=== PATIENT | female | born 1980 | race Caucasian/White ===

== ENCOUNTER 2022-03-04 17:42 | Emergency (ER) | payer OTHER, SELFPAY ==
[2022-03-04 17:49] VITALS: BP 144/94; PULSE 104; RESP 20; TEMP 36.1; O2SAT 98
--- NOTE | 2022-03-04 18:10 | ED.URI ---
HPI - URI/Sore Throat General Chief Complaint: Upper Respiratory Infection Stated Complaint: sore throat chills headache throat ears Time Seen by Provider: 03/04/22 18:10 Source: patient, RN notes reviewed and old records reviewed Mode of arrival: ambulatory Limitations: no limitations History of Present Illness HPI Narrative: 41-year-old female presents to the [facility] of sore throat, chills, headache x 3 days reports that her kids were sick with similar symptoms but got over it pretty quickly. Reports 1 child was given Flonase MD elicited complaint: fever, cough, sore throat and rhinorrhea Related Data Home Medications Medication Instructions Recorded Confirmed No Home Medications 03/04/22 03/04/22 Allergies Allergy/AdvReac Type Severity Reaction Status Date / Time No Known Drug Allergies Allergy Verified 02/08/13 14:39 Review of Systems Review of Systems: All systems reviewed & are unremarkable except as noted in HPI and below Constitutional: Constitutional: Reports as per HPI, Reports chills, Reports fatigue and Denies fever(s) Eyes: Eyes: Reports no additional eye complaints ENT: Reports as per HPI and Reports nasal congestion Cardiovascular: Cardiovascular: Reports no additional cardiovascular complaints Respiratory: Respiratory: Reports no additional respiratory complaints Gastrointestinal: Gastrointestinal: Reports no additional gastrointestinal complaints Musculoskeletal: Musculoskeletal: Reports no additional musculoskeletal complaints Integumentary/Breasts: Skin/Breast: Reports system reviewed and no additional complaints, except as docu Neurologic: Reports system reviewed and no additional complaints, except as documented Psychiatric: Psychiatric: Reports no additional psychiatric complaints Allergic/Immunologic: Allergic/Immunologic: Reports no additional allergic/immunologic complaints [facility] Past Medical History Medical History (Updated 03/04/22 @ 19:51 by Nanette Cristina APRN) Kidney disease Comments At the time of my signature, I reviewed and agree with the nursing past medical, surgical, social, and family history. There is no relevant family history pertinent to the patient complaint. Exam Const: General: healthy appearing, comfortable, no acute distress, well developed, alert and well nourished Nutritional Appearance: well nourished and obese Orientation/consciousness: patient oriented x3 Limitations: no limitations HENMT: Head: normal to inspection Ears: external ears normal, TM's normal bilaterally and EAC's normal Face/Nose/Sinus: Normal external nose present and Normal nares present Face and sinus: normal facial exam Mouth: Yes Normal oral and palatal mucosa present, Yes lip normal and Yes moist mucous membranes Throat: posterior oropharynx normal and uvula midline Eyes: General: appearance normal, both eyes and all related structures Pupils: Equal, round and reactive pupils present Neck: Neck: normal visual inspection, full ROM, no lymphadenopathy and no meningeal signs Chest: Chest palpation & inspection: normal inspection of the chest Resp: Effort & Inspection: normal respiratory effort and no use of accessory muscles Auscultation: clear to auscultation bilaterally, no crackles, no rales, no rhonchi and no wheezes Cardio: Rate: regular rate Rhythm: regular rhythm Back/Spine/Pelvis: Cervical Spine: cervical ROM normal and No Cervical spine tenderness Thoracic/Lumbar Spine: thoracic and lumbar spine normal to inspection and thoraco-lumbar ROM normal Skin: General skin exam: normal color Rashes: no rashes Wounds: no wounds Neuro: General: patient oriented x3, moves all extremities, no meningeal signs and no focal motor deficits Cranial nerves: Yes Equal, round and reactive pupils present Speech: normal speech Gait exam (Neuro): Normal gait present Extrem: General: normal to inspection, full ROM and capillary refill normal Psych: Appearance: grossly
== END 2022-03-04 18:25 | disposition home or self-care (01) ==
PROVIDERS: Emergency Provider Nurse Practitioner; PCP Internal Medicine
DX: J06.9 Acute upper respiratory infection, unspecified (principal); Q61.3 Polycystic kidney, unspecified; E03.9 Hypothyroidism, unspecified
CPT/HCPCS: 87081; 87804; 87880; 99203; G0463

== ENCOUNTER 2022-06-07 17:12 | Emergency (ER) | payer OTHER, SELFPAY ==
[2022-06-07 17:18] VITALS: BP 159/100; PULSE 102; RESP 14; TEMP 36.9; O2SAT 100
--- NOTE | 2022-06-07 17:49 | ED.URI ---
HPI - URI/Sore Throat General Chief Complaint: Upper Respiratory Infection Stated Complaint: throat ears and head Source: patient and RN notes reviewed History of Present Illness HPI Narrative: 42-year-old female with history of hypertension, presents to urgent care with complaints of sore throat x2 days. Patient presents with her daughter who was seen here and diagnosed with strep throat 2 days ago. Patient denies any fevers, chills, or vomiting. Patient reports chest pain with coughing. Patient is also reporting body aches. Patient also noted to have hypertension and states she has not been taking medicine for very long time. Patient admits to being diagnosed with unknown stage of kidney failure and states she has not seen a primary care physician in over a year. Some parts of this dictation were generated by voice recognition software and may contain typographical and/or grammatical inaccuracies. Related Data Allergies Allergy/AdvReac Type Severity Reaction Status Date / Time No Known Drug Allergies Allergy Verified 02/08/13 14:39 Review of Systems Review of Systems: CONSTITUTIONAL: Denies fever, chills, or sweats. EYES: Denies visual changes, redness, or discharge. ENT: Reports ear pain and sore throat CARDIOVASCULAR: Denies chest pain, palpitations, or edema. RESPIRATORY: Denies cough or dyspnea. GASTROINTESTINAL: Denies abdominal pain, nausea, vomiting, or diarrhea. GENITOURINARY: Denies dysuria or hematuria. SKIN: Denies rash or itching. MUSCULOSKELETAL: Denies back pain, joint pain, or myalgia. NEUROLOGIC: Denies headache, numbness, or weakness. [facility] Past Medical History Medical History (Updated 06/07/22 @ 18:00 by Kelli Walsh APRN) Kidney disease Comments At the time of my signature, I reviewed and agree with the nursing past medical, surgical, social, and family history. There is no relevant family history pertinent to the patient complaint. Exam Narrative: GENERAL: This is a well-nourished, well-developed patient, in no apparent distress. HEAD: normocephalic, atraumatic. EYES: PERRL. Sclera clear/white. Vision is grossly intact. EARS: External ears normal, auditory canals clear and without drainage, TMs normal without perforation. Hearing grossly intact. NOSE: External nose normal with no obvious nasal discharge, nares without redness, no rhinorrhea. THROAT: Mucous membranes moist, posterior pharynx erythemic. No tonsils. No exudate. NECK: Neck supple, non-tender without lymphadenopathy, masses or thyromegaly. CARDIOVASCULAR: Regular rate and rhythm without murmurs, gallops, or rubs. RESPIRATORY: Clear to auscultation. Breath sounds equal bilaterally. No wheezes, rales, or rhonchi. GASTROINTESTINAL: Abdomen soft, non-tender, nondistended. Bowel sounds are active. No hepato-splenomegaly, or palpable masses. No guarding. SKIN: warm, intact with no suspicious lesions or rash, good texture and turgor. NEURO: awake, alert, and oriented to person, place and time. There were no obvious focal neurologic abnormalities. Course Course Level of Care: Express Care Visit Vital Signs Vital signs: Vital Signs Temperature 98.5 F 06/07/22 17:18 Pulse Rate 102 H 06/07/22 17:18 Respiratory Rate 14 06/07/22 17:18 Blood Pressure 159/100 H 06/07/22 17:18 Pulse Oximetry 100 06/07/22 17:18 Oxygen Delivery Room Air 06/07/22 17:18 Temperature 98.5 F 06/07/22 17:18 Pulse Rate 102 H 06/07/22 17:18 Respiratory Rate 14 06/07/22 17:18 Blood Pressure 159/100 H 06/07/22 17:18 Pulse Oximetry 100 06/07/22 17:18 Oxygen Delivery Room Air 06/07/22 17:18 Reviewed. Patient is informed that they may have pre-hypertension or hypertension based on a blood pressure reading in the department. I recommend the patient call the primary care provider listed on their discharge instructions or a physician of their choice this week to arrange follow-up for further evaluation of possible pre-hypert
== END 2022-06-07 18:08 | disposition home or self-care (01) ==
PROVIDERS: Emergency Provider Nurse Practitioner Family; PCP Internal Medicine
DX: J02.0 Streptococcal pharyngitis (principal); I12.9 Hypertensive chronic kidney disease with stage 1 through stage 4 chronic kidney disease, or unspecified chronic kidney disease; N18.9 Chronic kidney disease, unspecified; Z91.14 Patient's other noncompliance with medication regimen
CPT/HCPCS: 87880; 99213; G0463

== ENCOUNTER 2022-06-20 17:40 | Emergency (ER) | payer OTHER, SELFPAY ==
[2022-06-20 17:45] VITALS: BP 138/100; PULSE 88; RESP 20; TEMP 37.1; O2SAT 98
--- NOTE | 2022-06-20 18:04 | ED.URI ---
HPI - URI/Sore Throat General Chief Complaint: Upper Respiratory Infection Stated Complaint: Sinus Congestion/Diarrhea Time Seen by Provider: 06/20/22 18:00 Source: patient and RN notes reviewed History of Present Illness HPI Narrative: Patient is a 42-year-old female who presents to urgent care with complaints of recurrent sore throat, cough, hoarseness and bilateral ear pain. Patient was treated for positive strep on June 07 with amoxicillin and states that her symptoms started to get worse again on Saturday. Patient states she has had fatigue and some chills. Patient has been taking Tylenol, vitamin-C and using cough drops peer no other acute complaints. No acute distress noted. Patient aware of the plan of care. Some parts of this dictation were generated by voice recognition software and may contain typographical and/or grammatical inaccuracies. Related Data Home Medications Medication Instructions Recorded Confirmed levonorgestrel 21 mcg/24 hours (8 1 device intrauterine ONCE 06/20/22 06/20/22 yrs) 52 mg intrauterine device (Mirena) Allergies Allergy/AdvReac Type Severity Reaction Status Date / Time No Known Drug Allergies Allergy Unknown Verified 06/20/22 18:06 Review of Systems Review of Systems: CONSTITUTIONAL: Denies fever, chills, or sweats. EYES: Denies visual changes, redness, or discharge. ENT: Reports bilateral otalgia, hoarseness and sore throat CARDIOVASCULAR: Denies chest pain, palpitations, or edema. RESPIRATORY: Reports cough without dyspnea GASTROINTESTINAL: Denies abdominal pain, nausea, vomiting, or diarrhea. GENITOURINARY: Denies dysuria or hematuria. SKIN: Denies rash or itching. MUSCULOSKELETAL: Denies back pain, joint pain, or myalgia. NEUROLOGIC: Denies headache, numbness, or weakness. All other systems reviewed are negative, except as documented in HPI. [facility] Past Medical History Medical History (Updated 06/20/22 @ 18:18 by ANDRE Sharp) Kidney disease Comments At the time of my signature, I reviewed and agree with the nursing past medical, surgical, social, and family history. There is no relevant family history pertinent to the patient complaint. Exam Narrative: GENERAL: This is a well-nourished, well-developed patient, in no apparent distress. HEAD: normocephalic, atraumatic. EYES: PERRL. Sclera clear/white. Vision is grossly intact. EARS: External ears normal, auditory canals clear and without drainage, TMs normal without perforation. Hearing grossly intact. NOSE: External nose normal with no obvious nasal discharge, nares without redness, no rhinorrhea. THROAT: Mucous membranes moist, posterior pharynx clear. Moderate postnasal drainage. NECK: Neck supple, non-tender without lymphadenopathy CARDIOVASCULAR: Regular rate and rhythm RESPIRATORY: Clear to auscultation. Breath sounds equal bilaterally. No wheezes, rales, or rhonchi. SKIN: warm, intact with no suspicious lesions or rash, good texture and turgor. NEURO: awake, alert, and oriented to person, place and time. There were no obvious focal neurologic abnormalities. EXTREMITIES: No clubbing, cyanosis, or edema. Course Course Level of Care: Express Care Visit Vital Signs Vital signs: Vital Signs Temperature 98.7 F 06/20/22 17:45 Pulse Rate 88 06/20/22 17:45 Respiratory Rate 20 06/20/22 17:45 Blood Pressure 138/100 H 06/20/22 17:45 Pulse Oximetry 98 06/20/22 17:45 Oxygen Delivery Room Air 06/20/22 17:45 Temperature 98.7 F 06/20/22 17:45 Pulse Rate 88 06/20/22 17:45 Respiratory Rate 20 06/20/22 17:45 Blood Pressure 138/100 H 06/20/22 17:45 Pulse Oximetry 98 06/20/22 17:45 Oxygen Delivery Room Air 06/20/22 17:45 Reviewed- Patient is informed that they may have pre-hypertension or hypertension based on a blood pressure reading in the department. I recommend the patient call the primary care provider listed on their discharge instructions or a physi
[2022-06-20 18:23] VITALS: BP 141/111
== END 2022-06-20 18:23 | disposition home or self-care (01) ==
PROVIDERS: Emergency Provider Nurse Practitioner Family; PCP Internal Medicine
DX: J02.0 Streptococcal pharyngitis (principal); N28.9 Disorder of kidney and ureter, unspecified
CPT/HCPCS: 87880; 99213; G0463

== ENCOUNTER 2023-06-28 17:31 | Emergency (ER) | payer OTHER, SELFPAY ==
[2023-06-28 17:36] VITALS: BP 167/113; PULSE 123; RESP 18; TEMP 37.1; O2SAT 99
--- NOTE | 2023-06-28 18:20 | ED.URI ---
HPI - URI/Sore Throat General Chief Complaint: Upper Respiratory Infection Stated Complaint: Sore Throat/Ear Problem/Chest Pain Time Seen by Provider: 06/28/23 17:45 Source: patient Mode of arrival: ambulatory Limitations: no limitations History of Present Illness HPI Narrative: 43 yo F presents with c/o scratchy throat, nasal congestion, PND, fatigue, bodyaches and cough since yesterday. Reports symptoms progressed today and feeling much worse. Afebrile. Has taken tylenol to treat headache. hx of polycystic kidney. States she cannot take NSAIDS. All systems reviewed and negative except as noted above. Related Data Home Medications Medication Instructions Recorded Confirmed irbesartan 150 mg tablet mg 06/28/23 methimazole 5 mg tablet mg 06/28/23 Allergies Allergy/AdvReac Type Severity Reaction Status Date / Time No Known Drug Allergies Allergy Unknown Verified 06/20/22 18:06 Review of Systems Review of Systems: CONSTITUTIONAL: Denies fever, chills, or sweats. Reports fatigue. EYES: Denies visual changes, redness, or discharge. ENT: Reports rhinorrhea, congestion, sore throat. Denies otalgia. CARDIOVASCULAR: Denies chest pain, palpitations, or edema. RESPIRATORY: Reports cough. Denies dyspnea. GASTROINTESTINAL: Denies abdominal pain, nausea, vomiting, or diarrhea. GENITOURINARY: Denies dysuria or hematuria. SKIN: Denies rash or itching. MUSCULOSKELETAL: Denies back pain, joint pain, or myalgia. NEUROLOGIC: Denies headache, numbness, or weakness. PSYCHIATRIC: Denies anxiety or depression. All other systems reviewed are negative, except as documented in HPI. [facility] Past Medical History Medical History (Updated 06/28/23 @ 18:18 by Erin Mcgarry NP) Kidney disease Comments At time of signature, agree with nursing past medical, surgical, social and family history. There is no relevant family history pertinent to the presenting complaint. Exam Narrative: GENERAL: This is a well-nourished, well-developed patient, in no apparent distress. HEAD: normocephalic, atraumatic. EYES: PERRL. Sclera clear/white. Vision is grossly intact. EARS: External ears normal, auditory canals clear and without drainage, TMs normal without perforation. Hearing grossly intact. NOSE: External nose normal with no obvious nasal discharge, nares without redness, no rhinorrhea. THROAT: Mucous membranes moist, mild erythema with PND. tonsils absent. NECK: Neck supple, non-tender without lymphadenopathy, masses or thyromegaly. CARDIOVASCULAR: Regular rate and rhythm without murmurs, gallops, or rubs. RESPIRATORY: Clear to auscultation. Breath sounds equal bilaterally. No wheezes, rales, or rhonchi. SKIN: warm, Dry, intact with no suspicious lesions or rash, good texture and turgor. NEURO: awake, alert, and oriented to person, place and time. There were no obvious focal neurologic abnormalities. EXTREMITIES: No joint tenderness, effusion, or edema noted. Course Course Level of Care: Express Care Visit Vital Signs Vital signs: Vital Signs Temperature 37.1 C 06/28/23 17:36 Pulse Rate 123 H 06/28/23 17:36 Respiratory Rate 18 06/28/23 17:36 Blood Pressure 167/113 H 06/28/23 17:36 Pulse Oximetry 99 06/28/23 17:36 Oxygen Delivery Room Air 06/28/23 17:36 Temperature 37.1 C 06/28/23 17:36 Pulse Rate 123 H 06/28/23 17:36 Respiratory Rate 18 06/28/23 17:36 Blood Pressure 167/113 H 06/28/23 17:36 Pulse Oximetry 99 06/28/23 17:36 Oxygen Delivery Room Air 06/28/23 17:36 BP manually checked by this [employer] 150/100. HR 110 auscultated. MDM - URI/Sore Throat MDM Narrative Medical decision making narrative: Patient is aware of diagnosis, understands and agrees to treatment plan. Anticipatory guidance given. Patient agrees to follow-up as directed and is aware of reasons to seek care at the emergency department. Portions of this record may have been created with voice recognition softw
== END 2023-06-28 18:26 | disposition home or self-care (01) ==
PROVIDERS: Emergency Provider Nurse Practitioner Family; PCP Internal Medicine
DX: J06.9 Acute upper respiratory infection, unspecified (principal); B97.89 Other viral agents as the cause of diseases classified elsewhere; Z79.899 Other long term (current) drug therapy; Z20.822 Contact with and (suspected) exposure to COVID-19
CPT/HCPCS: 87081; 87426; 87804; 87880; 99213; G0463

== ENCOUNTER 2023-11-04 18:09 | Emergency (ER) | payer OTHER, SELFPAY ==
[2023-11-04 18:20] VITALS: BP 125/81; PULSE 82; RESP 20; TEMP 36.7; O2SAT 98
--- NOTE | 2023-11-04 18:50 | ED.SKABFB ---
HPI - Skin/Abscess/Foreign Bdy General Chief complaint: Skin/Abscess/Foreign Body Stated complaint: weird rash Time Seen by Provider: 11/04/23 18:50 Source: patient Mode of arrival: ambulatory Limitations: no limitations History of Present Illness HPI narrative: 43-year-old female presented for complaint of itchy red rash to the left neck worsening over the past 5 days. She has applied hydrocortisone cream to the site without relief. Patient applied ice tea tree oil to the area for many years for skin tags. Denies lip, tongue, or throat swelling, shortness of breath or wheezing. Denies changes to soap, detergent, lotion, or any other exposures. No one else in the house or any contacts with similar symptoms. Related Data Home Medications Medication Instructions Recorded Confirmed carvedilol 25 mg tablet See Rx Instructions .Route .COMPLEX 11/04/23 11/04/23 irbesartan 300 mg tablet 300 mg PO DAILY 11/04/23 11/04/23 methimazole 5 mg tablet 5 mg PO DAILY 11/04/23 11/04/23 Allergies Allergy/AdvReac Type Severity Reaction Status Date / Time No Known Drug Allergies Allergy Unknown Verified 11/04/23 18:26 Review of Systems Review of Systems: CONSTITUTIONAL: Denies body aches, fever, chills, or sweats. EYES: Denies visual changes, redness, or discharge. ENT: Denies rhinorrhea, congestion CARDIOVASCULAR: Denies chest pain, palpitations, or edema. RESPIRATORY: Denies cough or dyspnea. GASTROINTESTINAL: Denies abdominal pain, nausea, vomiting, or diarrhea. SKIN: Per HPI MUSCULOSKELETAL: Denies back pain, joint pain, or myalgia. NEUROLOGIC: Denies headache, numbness, tingling, or weakness. [facility] Past Medical History Medical History Kidney disease Comments At time of signature, I have reviewed and agree with nursing past medical, surgical, social and family history unless otherwise noted. Please see nursing chart for further information. There is no relevant family history pertinent to the presenting complaint Exam Narrative: GENERAL: Well-appearing EYES: conjunctivae clear, and EOMI. ENT: Mucous membranes moist. Oropharynx without edema, erythema or lesions. NECK: Supple. No lymphadenopathy CHEST: Clear to auscultation. HEART: Regular rate and rhythm. SKIN: Warm, dry. left neck and upper chest with erythematous maculopapular rash, mildly warm. No open wounds No active drainage. consistent with contact dermatitis. NEURO: Alert and oriented x3. Neck: Neck images: 1. area of erythema Course Course Emergency Course: Patient is aware of diagnosis, understands and agrees to treatment plan. Anticipatory guidance given. Patient agrees to follow-up as directed and is aware of reasons to seek care at the emergency department. Portions of this record may have been created with voice recognition software Level of Care: Express Care Visit Vital Signs Vital signs: Vital Signs Temperature 98.1 F 11/04/23 18:20 Pulse Rate 82 11/04/23 18:20 Respiratory Rate 20 11/04/23 18:20 Blood Pressure 125/81 11/04/23 18:20 Pulse Oximetry 98 11/04/23 18:20 Temperature 98.1 F 11/04/23 18:20 Pulse Rate 82 11/04/23 18:20 Respiratory Rate 20 11/04/23 18:20 Blood Pressure 125/81 11/04/23 18:20 Pulse Oximetry 98 11/04/23 18:20 Reviewed MDM - Skin/Abscess/Foreign Bdy MDM Narrative Medical decision making narrative: Discussed physical exam findings. Advised supportive measures and signs/symptoms to go to the ER. Pt is appropriate for outpt treatment and f/u. Differential Diagnosis Differential diagnosis: Likely abscess of skin or subcutaneous tissue, urticaria, herpes zoster, cellulitis and contact dermatitis Discharge Plan Discharge Clinical Impression: Contact dermatitis Patient Disposition: Home, Self-Care Condition: Stable Instructions: Antibiotic Form, Dermatitis (ED) Additional Ins
== END 2023-11-04 19:10 | disposition home or self-care (01) ==
PROVIDERS: Emergency Provider Nurse Practitioner Family; PCP Internal Medicine
DX: L25.9 Unspecified contact dermatitis, unspecified cause (principal); I12.9 Hypertensive chronic kidney disease with stage 1 through stage 4 chronic kidney disease, or unspecified chronic kidney disease; N18.2 Chronic kidney disease, stage 2 (mild); E28.2 Polycystic ovarian syndrome; E03.9 Hypothyroidism, unspecified
CPT/HCPCS: 99213; G0463

== ENCOUNTER 2023-11-29 18:36 | Emergency (ER) | payer OTHER, SELFPAY ==
--- NOTE | 2023-11-29 18:42 | ED.URI ---
HPI - URI/Sore Throat General Chief Complaint: Upper Respiratory Infection Stated Complaint: Sore Throat/Cough/Neck Pain Source: patient and RN notes reviewed Mode of arrival: ambulatory Limitations: no limitations History of Present Illness HPI Narrative: 43-year-old female presented for complaint of sore throat neck pain for about 5 days, started with nasal congestion and cough over the past 3 days. Endorses exposure to strep throat last week. Denies shortness of breath, wheezing nausea, vomiting, fevers or chills. Not taking anything for symptoms. MD elicited complaint: cough Related Data Home Medications Medication Instructions Recorded Confirmed carvedilol 25 mg tablet See Rx Instructions .Route .COMPLEX 11/04/23 11/29/23 irbesartan 300 mg tablet 300 mg PO DAILY 11/04/23 11/29/23 methimazole 5 mg tablet 5 mg PO DAILY 11/04/23 11/29/23 Avapro 11/29/23 omega-3 fatty acids PO 11/29/23 Allergies Allergy/AdvReac Type Severity Reaction Status Date / Time bee venom protein (honey bee) Allergy Swelling Verified 11/29/23 18:54 [bees] Latex, Natural Rubber Allergy Unknown Verified 11/29/23 18:54 morphine Allergy Unknown Verified 11/29/23 18:54 Review of Systems Review of Systems: CONSTITUTIONAL: Denies malaise, chills, sweats, fever EYES: Denies visual changes, redness, or discharge ENT: Reports rhinorrhea, congestion, sore throat CARDIOVASCULAR: Denies chest pain, palpitations, edema RESPIRATORY: Reports cough, post nasal drainage. Denies dyspnea GASTROINTESTINAL: Denies abdominal pain, nausea, vomiting, diarrhea SKIN: Denies rash or itching MUSCULOSKELETAL: denies myalgia PMF Past Medical History Medical History Kidney disease Surgical History Surgical History History of tonsillectomy Exam Narrative: GENERAL: Well-appearing. EYES: PERRLA, conjunctivae clear ENT: Mucous membranes moist. TM pearly webb with dull light reflex bilaterally; no tragal tenderness. Oropharynx mildly erythematous without lesions or exudate, tonsils absent; no drooling, no hoarseness, no trismus, uvula midline. No tripod positioning, muffled voice, soft palate or pharyngeal wall bulging NECK: Supple. No lymphadenopathy CHEST: Clear to auscultation, breath sounds equal. No wheezing, rhonchi, rales, or stridor. No respiratory distress, speaks in full sentences. HEART: Regular rate and rhythm. SKIN: Warm, dry, no rash. NEURO: Alert and oriented x3. Course Course Emergency Course: Patient is aware of diagnosis, understands and agrees to treatment plan. Anticipatory guidance given. Patient agrees to follow-up as directed and is aware of reasons to seek care at the emergency department. Portions of this record may have been created with voice recognition software Level of Care: Express Care Visit Vital Signs Vital signs: Vital Signs Temperature 97.7 F 11/29/23 18:44 Pulse Rate 93 11/29/23 18:44 Respiratory Rate 20 11/29/23 18:44 Blood Pressure 140/85 11/29/23 18:44 Pulse Oximetry 99 11/29/23 18:44 Oxygen Delivery Room Air 11/29/23 18:44 Temperature 97.7 F 11/29/23 18:44 Pulse Rate 93 11/29/23 18:44 Respiratory Rate 20 11/29/23 18:44 Blood Pressure 140/85 11/29/23 18:44 Pulse Oximetry 99 11/29/23 18:44 Oxygen Delivery Room Air 11/29/23 18:44 reviewed MDM - URI/Sore Throat MDM Narrative Medical decision making narrative: negative strep, flu, COVID reviewed with patient. Discussed physical exam findings. Advised supportive measures and signs/symptoms to go to the ER. Pt is appropriate for outpt treatment and f/u. Differential Diagnosis Differential diagnosis: Likely upper respiratory infection, sinusitis and viral infection Discharge Plan Discharge Clinical Impression: Upper respiratory infection Patient Disposition: Home, [place]
[2023-11-29 18:44] VITALS: BP 140/85; PULSE 93; RESP 20; TEMP 36.5; O2SAT 99
[2023-11-29 20:42] LABS: EDINFLUASCREEN Negative; EDINFLUBSCREEN Negative; EDSTREPNEGPOS1 Presumptive Negative
== END 2023-11-29 19:16 | disposition home or self-care (01) ==
PROVIDERS: Emergency Provider Nurse Practitioner Family; PCP Internal Medicine
DX: J06.9 Acute upper respiratory infection, unspecified (principal); Z20.822 Contact with and (suspected) exposure to COVID-19
CPT/HCPCS: 87081; 87426; 87804; 87880; 99213; G0463

== ENCOUNTER 2023-12-04 16:23 | Emergency (ER) | payer OTHER, SELFPAY ==
[2023-12-04 16:31] VITALS: BP 138/86; PULSE 100; RESP 18; TEMP 36.8; O2SAT 100
--- NOTE | 2023-12-04 17:11 | ED.URI ---
HPI - URI/Sore Throat General Chief Complaint: Upper Respiratory Infection Stated Complaint: chest heavy/was here Saturday Time Seen by Provider: 12/04/23 16:50 Source: patient, RN notes reviewed and old records reviewed Mode of arrival: ambulatory Limitations: no limitations History of Present Illness HPI Narrative: 43 year old female who presents [facility] with complaints of being diagnosed on Saturday last week with upper respiratory infection but does not think she is any better. Patient reports that she still has bad cough and she has some pressure in her upper chest. Patient denies any shortness of breath with SAO2 100% with no tachypnea. Patient rports that she has not taken any OTC medications for her symptoms.According to records patient had antibiotic of Avapro ordered on 11/29/2023. MD elicited complaint: cough and other (pressure upper chest) Onset (ago): day(s) (10) Consistency: intermittent Description of mucous: clear Able to tolerate fluids by mouth: Yes Treatments prior to arrival: none Related Data Home Medications Medication Instructions Recorded Confirmed carvedilol 25 mg tablet See Rx Instructions .Route .COMPLEX 11/04/23 11/29/23 irbesartan 300 mg tablet 300 mg PO DAILY 11/04/23 11/29/23 methimazole 5 mg tablet 5 mg PO DAILY 11/04/23 11/29/23 Avapro 11/29/23 omega-3 fatty acids PO 11/29/23 Allergies Allergy/AdvReac Type Severity Reaction Status Date / Time bee venom protein (honey bee) Allergy Swelling Verified 11/29/23 18:54 [bees] Latex, Natural Rubber Allergy Unknown Verified 11/29/23 18:54 morphine Allergy Unknown Verified 11/29/23 18:54 Review of Systems Review of Systems: CONSTITUTIONAL: Denies malaise, chills, sweats, or fever. EYES: Denies visual changes, redness, or discharge. ENT: Reports rhinorrhea, congestion, sinus pain, no otalgia and no sore throat. CARDIOVASCULAR: Denies chest pain,no palpitations, or edema.states some upper chest pressure with cough RESPIRATORY: Reports cough.? Denies dyspnea. GASTROINTESTINAL: Denies abdominal pain, nausea, vomiting, diarrhea SKIN: Denies rash or itching. MUSCULOSKELETAL: Denies myalgia. NEUROLOGIC: Denies headache. All systems reviewed & are unremarkable except as noted in HPI and below PMFSH Past Medical History Medical History Bronchitis Kidney disease polycystic kidney disease Migraine Stage 2 chronic kidney disease Surgical History Surgical History History of tonsillectomy Previous section Social History Social History Smoking status: Never smoker Alcohol use details: no alcohol Substance use: current Substance use type: marijuana Living arrangements: with family Gender identity (if verbalized by the patient): Female Comments At time of signature, agree with nursing past medical, surgical, social and family history. There is no relevant family history pertinent to the presenting complaint Exam Narrative: GENERAL: Well-appearing, well-nourished, obese and in no acute distress. HEAD: Normocephalic EYES: PERRLA, conjunctivae clear ENT: Nares clear, turbinates edematous and erythematous, clear discharge. Mucous membranes moist. TM pearly webb with dull light reflex bilaterally; no tragal tenderness. Oropharynx erythematous without lesions. Tonsils not present and throat without exudate, no drooling, no hoarseness, no trismus, uvula midline. NECK: Supple. No lymphadenopathy CHEST: Clear to auscultation, breath sounds equal. No wheezing, rhonchi, rales, or stridor. No respiratory distress, speaks in full sentences.reports cough, SAO2 100% on room air HEART: Regular rate and rhythm. No murmur heard. SKIN: Warm, dry, no rash. NEURO: Alert and oriented x3. PSYCH: Normal mood and affect Course C
== END 2023-12-04 17:47 | disposition home or self-care (01) ==
PROVIDERS: Emergency Provider Registered Nurse; PCP Internal Medicine
DX: R05.9 Cough, unspecified (principal); Q61.3 Polycystic kidney, unspecified; N18.2 Chronic kidney disease, stage 2 (mild)
CPT/HCPCS: 99213; G0463

== ENCOUNTER 2024-06-13 15:12 | Emergency (ER) | payer OTHER, SELFPAY ==
--- NOTE | ~2024-06-13 | XR_ITS ---
EXAMINATION: XR chest 2V DATE: 06/13/2024 16:09 INDICATION: Cough. TECHNIQUE: Frontal and lateral views of the chest were obtained. COMPARISON: None. FINDINGS: There is no pneumonia, pleural effusion, or pneumothorax. The heart size is normal. IMPRESSION: 1. No acute cardiopulmonary disease. Reviewed, dictated and finalized at location [facility]
[2024-06-13 15:15] VITALS: BP 136/72; PULSE 114; RESP 20; TEMP 36.4; O2SAT 98
--- OUTSIDE RECORDS SUMMARY | 2024-06-13 15:16 | XMS_ITS | Clinical Summary ---
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
--- OUTSIDE RECORDS SUMMARY | 2024-06-13 15:16 | XMS_ITS | Encounter Summary ---
Author Organization [employer] Address 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 Reference Range: Gestational Age: 3 Weeks 5.8 - 71.2 mIU/mL 4 Weeks 9.5 - 750 mIU/mL 5 Weeks 217 - 7138 mIU/mL 6 Weeks 158 - 31,795 mIU/mL 7 Weeks 3697 - 163,563 mIU/mL 8 Weeks 32,065 - 149,571 mIU/mL 9 Weeks 63,803 - 151,410 mIU/mL 10 Weeks 46,509 - 186,977 mIU/mL 12 Weeks 27,832 - 210,612 mIU/mL 14 Weeks 13,950 - 62,530 mIU/mL 15 Weeks 12,039 - 70,971 mIU/mL 16 Weeks 9040 - 56,451 mIU/mL 17 Weeks 8175 - 55,868 mIU/mL 18 Weeks 8099 - 58,176 mIU/mL Heterophile antibodies and other interfering substances in the serum of some patients may cause a false-positive result in this assay. Before making a diagnosis of malignancy or etopic ,the result of this test should be confirmed with a urine HCG test and correlated with other clinical evidence. Blood specimen (specimen) 01/22/2008 3:53 PM CDT 01/22/2008 4:05 PM CDT Narrative INTERFACE SYSTEM - 01/22/2008 5:38 PM CDT fax results [phone] results faxed 01/22/08 5:38 PM dl us Rosa Reyes MD CHEMISTRY ORDERABLES Edited INTERFACE SYSTEM Refer to clinic/hospital department [facility] CLIA# [id number] [address] [place] [address] documented in this encounter Visit Diagnoses Diagnosis Missed documented in this encounter
--- OUTSIDE RECORDS SUMMARY | 2024-06-13 15:16 | XMS_ITS | Clinical Summary ---
Author Organization [facility] [employer] Address [address] [place] [address] Care Team Providers Care Shot Dropper Name Role Phone Unavailable Primary Care Provider Unavailabl e Source Comments [facility],non-owned Affiliates and Associated Physician Practices is amultiple site organization consisting of ambulatory clinics and hospital sitesin [place], [place], [place] and [place]. This disclosure is being madepursuant to the Care Everywhere program and may not contain all information available regarding this patient. Last updated 18.[facility] [employer] Allergies Active Allergy Reactions Criticality Noted Date Comments Bee Swelling 06/19/2015 Latex Rash Low 06/19/2015 Medications * Be aware that medications may not be up to date on this document. Alwaysverify current medications with the patient. Medication Sig Dispensed Refills Start Date End Date Status Vit-Fe Fumarate-FA ( VITAMIN) 28-0.8 MG tablet Take 1 Tab by mouth once daily Active aspirin EC (ECOTRIN) 81 MG tablet Take 81 mg by mouth once daily Active enoxaparin (LOVENOX) injection Inject 40 mg subcutaneously once daily Active iron polysaccharides (NIFEREX 150) 150 MG capsuleIndications:Rico pervision of high risk in second trimester (HCC) Take 1 Cap by mouth at bedtime 30 Cap 0 06/20/2015 Active phenazopyridine (PYRIDIUM) 200 MG tablet Take 1 Tab by mouth 3 times daily, after meals 90 Tab 0 06/20/2015 Active Active Problems Problem Noted Date Diagnosed Date GBS (group B Streptococcus c arrier), +RV culture, currently 06/22/2015 [facility] Overview (06/22/2015): PNC: Dr. Jaycee Mayo Dating: L= 1st trimester O+ S/p flu vaccine GBS positive Antiphospholipid antibody syndrome complicating 06/19/2015 Overview (06/19/2015): On aspirin and lovenox History of section 06/19/2015 Overview (06/19/2015): Arrest of dilation Followed by x2 Placental abruption in second trimester 06/19/19 16 Asthma, exercise induced 06/19/2015 Overview (06/19/2015): No problems in many years Chronic migraine without aur a without status migrainosus, not intractable 06/19/2015 Resolved Problems Problem Noted Date Diagnosed Date Resolved Date E. coli UTI 06/19/2015 07/03/2015 Overview (06/19/2015): S/p Macrobid Family History Medical History Relation Name Comments Diabetes Maternal Grandfather Diabetes Maternal Grandmother Heart Disease Maternal Grandmother Stroke Maternal Grandmother Diabetes Mother Cancer Paternal Grandfather Cancer Paternal Grandmother Other Other has a cousin wi th half a heart Relation Name Status Comments Maternal Grandfather Maternal Grandmother Mother Paternal Grandfather Paternal Grandmother Other Social History Tobacco Use Types Packs/Day Years Used Date Smoking Tobacco: Never Smokeless Tobacco: Never Alcohol Use Standard Drinks/Week Comments No 0 (1 standard drink = 0.6 oz pur e alcohol) Sex and Gender Information Value Date Recorded Sex Assigned at Not on file Gender Identity Not on file Sexual Orientation Not on file Last Filed Vital Signs Vital Sign Reading Time Taken Comments Blood Pressure 122/70 06/20/2015 2:44 PM GAS SHOVEL OPERATOR Pulse - - Temperature 36.6 C (97.9 F) 06/20/2015 8:47 AM GAS SHOVEL OPERATOR Respiratory Rate 18 06/20/2015 2:44 PM GAS SHOVEL OPERATOR Oxygen Saturation 100% 06/19/2015 7:40 PM GAS SHOVEL OPERATOR Inhaled Oxygen Concentration - - Weight 112.5 kg (248 lb) 06/20/2015 2:00 PM GAS SHOVEL OPERATOR Height 170.2 cm (5' 7 ) 06/20/2015 2:00 PM GAS SHOVEL OPERATOR Body Mass Index 38.84 06/20/2015 2:00 PM GAS SHOVEL OPERATOR Plan of Treatment Health Maintenance Due Date Last Done Comments LIPID TESTING 1981 MAMMOGRAM 1981 PAP SMEAR 1981 HIV SCREENING 1996 HEPATITIS C SCREENING 03/07/1999 DTAP/TDAP/TD VACCINES (1 - Tdap) 2000 HEPATITIS B VACCINE (1 of 3 - 19+ 3-dose series) 2000 PNEUMOCOCCAL VACCINE (1 of 2 - PCV) 2000 COVID-19 VACCINE (1 - 2023-2 5 season) 2023 INFLUENZA VACCINE (#1) 2023 DEPRESSION SCREENING 04/22/2024 ZOSTER VACCINE (1 of 2) 2031 HIB VACCINE Aged Out No longer eligi ble based on patient's age to complete this topic HPV VACCINE Aged Out No longer eligi ble based on patient's age to complete this topic MENINGOCOCCAL (Group B) VACCINE Aged Out No longer eligible based on patient's age to complete this topic MENINGOCOCCAL VACCINE Aged Out No renaldo papa eligible based on patient's age to complete this topic Advance Directives * Full Code (Latest Code Status on File) Date Activated Date Inactivated Comments 06/19/2015 8:17 PM 06/20/2015 6:22 PM
--- OUTSIDE RECORDS SUMMARY | 2024-06-13 15:16 | XMS_ITS | Referral Summary ---
Author Organization [facility] Address [address] [place] [address] Care Team Providers Care Psychiatric Therapist Name Role Phone Unavailable Primary Care Provider Unavailabl e Source Comments [facility],non-owned Affiliates and Associated Physician Practices is amultiple site organization consisting of ambulatory clinics and hospital sitesin [place], [place], [place] and [place]. This disclosure is being madepursuant to the Care Everywhere program and may not contain all information available regarding this patient. Last updated 18.[facility] [employer] Allergies Active Allergy Reactions Criticality Noted Date [...] [facility] Overview (06/22/2015): PNC: Dr. Jaycee [...] UTI 06/19/2015 07/03/2015 Overview (06/19/2015): S/p Macrobid Social History Tobacco Use Types Packs/Day Years [...] Comments Blood Pressure 122/70 06/20/2015 2:44 PM DEVELOPMENT CONSULTANT Pulse - - Temperature 36.6 C (97.9 F) 06/20/2015 8:47 AM DEVELOPMENT CONSULTANT Respiratory Rate 18 06/20/2015 2:44 PM DEVELOPMENT CONSULTANT Oxygen Saturation 100% 06/19/2015 7:40 PM DEVELOPMENT CONSULTANT Inhaled Oxygen Concentration - - Weight 112.5 kg (248 lb) 06/20/2015 2:00 PM DEVELOPMENT CONSULTANT Height 170.2 cm (5' 7 ) 06/20/2015 2:00 PM DEVELOPMENT CONSULTANT Body Mass Index 38.84 06/20/2015 2:00 PM DEVELOPMENT CONSULTANT Functional Status Functional Status Response Date of Assess ment Is person deaf or have serious hearing difficult y? No 06/19/2015 Is person blind or have serious difficulty seein g? No 06/19/2015 Does person have serious dif ficulty walking/climbing stairs? No 06/19/2015 Does person have difficulty dressing/bathing? No 06/19/2015 Does person have difficulty doing errands alone? No 06/19/2015 Cognitive Status Response Date of Assessm ent Does person have difficulty concentrating/remembering/making decisions? No 06/19/2015 Plan of Treatment Not on file Advance Directives * Full Code (Latest Code Status on File) Date Activated Date Inactivated Comments 06/19/2015 8:17 PM 06/20/2015 6:22 PM
--- OUTSIDE RECORDS SUMMARY | 2024-06-13 15:16 | XMS_ITS | Clinical Summary ---
Author Organization [facility] Address [address] [place] [id number] Care Team Providers Care Dyehouse Worker Name Role Phone Seferino Morton MD Unavailable [phone] Vito Kamara MD Primary Care Provider [phone] Allergies Active Allergy Reactions Criticality Noted Date Comments Latex Other (See comments),Rash Medium 06/07/2015 Reaction: Break out Morphine Anaphylaxis,Palpitat ion s High 06/10/2023 Tolvaptan Fatigue Low 12/17/2022 Patient became violently ill with vomiting and diarrhea and the medication had to be stopped after 5 days of use Venom-Honey Bee Swelling Medium 06/07/2015 Medications levonorgestreL (Mirena) IUD 6 Active cephalexin (KEFLEX) 250 mg capsuleIndicati ons:Urinary Tract/Genitouri nary Infection Take 1 capsule (250 mg total) by mouth 3 (three) times a day 15 capsule 4 Active Additional Information Patient not taking.Reported on 05/26/2024 carvediloL (COREG) 25 mg tablet Take 1.5 tablets (37.5 mg total) by mouth 2 (two) times a day with meals 270 tablet 3 4 08/09/19 25 Active omega 7-san-pro-fish oil 100-400-1,000 mg capsule Take 1,000 mg by mouth daily Active predniSONE (DELTASONE) 20 mg tablet 4 Active methIMAzole (TAPAZOLE) 5 mg tabletIndicatio ns:Hyperthyroid ism Take 1 tablet daily Saturday through Saturday and take 2 tablets on Sundays 40 tablet 6 4 Active irbesartan (AVAPRO) 300 mg tablet Take 1 tablet (300 mg total) by mouth nightly Patient needs appointment 90 tablet 5 08/11/19 25 Active Active Problems Problem Noted Date Diagnosed Date Morbid (severe) obesity due to excess calories 0 07/25/2023 Body mass index 40.0-44.9, adult (CMS/HCC) 07/24 RAVIN (obstructive sleep apnea) 07/23/2023 Hyperlipidemia 07/23/2023 Hypertension 07/23/2023 Palpitation 07/23/2023 Hyperthyroidism 07/09/2019 Assessment & Plan (11/21/2023 1:37 PM CDT): Chronic, stable Update TFTs Continue tapazole. Assessment & Plan (05/16/2023 3:00 PM EXTRAS CASTING DIRECTOR): Chronic, uncontrolled Will adjust dose of tapazole accordingly Will recheck labs in 3 months F/u in 6 m Assessment & Plan (08/30/2022 4:56 PM CDT): Chronic, uncontrolled Restart Tapazole 10 mg daily Recheck TFTs in 2 months Follow-up in 4 Assessment & Plan (02/24/2020 5:46 PM EXTRAS CASTING DIRECTOR): Thyroid function tests requested. Will adjust dose of Tapazole accordingly Assessment & Plan (10/15/2019 2:16 PM CDT): Will check thyroid function tests. Will adjust dose of Tapazole accordingly Assessment & Plan (07/09/2019 1:55 PM CDT): It was explained to the patient that the therapeutic approach to hyperthyroidism consists of both rapid amelioration of symptoms with a beta salvador and measures aimed at decreasing thyroid hormone synthesis. Options of treatment were discussed and include: the administration of a thionamide, radioiodine ablation, or surgery . Goal of treatment Is to normalize serum thyroid hormone levels, as indicated by a normal serum level of T4 and T3. Normalization of thyroid hormone levels usually translates into improvement of symptoms. Weight gain is a common complaint in patients treated for hyperthyroidism, regardless of what treatment is used. Most patient go back to their original weight and but many patients gain additional weigth A low calorie diet and a exercise program is of paramount importance when addressing this problem. The patient seem very reluctant to the possibility of PÉREZ ablation. Will continue Tapazole Will check TFT's today and adjust dose of Tapazole accordingly Multinodular goiter 07/09/2019 Assessment & Plan (08/30/2022 4:57 PM CDT): Thyroid ultrasound performed today See report Assessment & Plan (10/15/2019 2:16 PM CDT): No changes on PE No obstructive symptoms. Assessment & Plan (07/09/2019 1:56 PM CDT): Differential diagnosis would include benign nodule (macrofollicular or adenomatoid/hyperplastic nodules, colloid adenomas, nodular goiter, and Nelson's thyroiditis) vs thyroid carcinoma ( follicular , papillary ) FNA of two, large solid nodules, one in the right lobe and a second one in the isthmus , was recommended and performed Sprain of posterior talofibular ligament of left ankle 10/26/2017 GBS (group B Streptococcus c arrier), +RV culture, currently 06/22/2015 Antiphospholipid antibody syndrome complicating 06/19/2015 Overview (10/26/2018): Overview: On aspirin and lovenox Placental abruption in second trimester 06/19/19 16 Asthma, exercise induced 06/19/2015 Overview (10/26/2018): Overview: No problems in many years Chronic migraine without aur a without status migrainosus, not intractable 06/19/2015 History of section 06/19/2015 Overview (10/26/2018): Overview: Arrest of dilation Followed by x2 Supervision of high risk in second [facility] 06/19/2015 Overview (10/26/2018): Overview: PNC: Dr. Jaycee Mayo Dating: L= 1st trimester O+ S/p flu vaccine GBS positive Headache disorder 12/02/2012 Cervico-occipital neuralgia 10/01/2012 Overview (07/27/2016): Occipital neuralgia Migraine 10/01/2012 Overview (07/27/2016): Chronic migraine Encounters Date Type Department Care Team Description 05/26/2024 2:10 PM EXTRAS CASTING DIRECTOR Lab [facility] [id number] [place] [phone] Hyperthyroidism 05/26/2024 1:15 PM EXTRAS CASTING DIRECTOR Office Visit [facility] [id number] [place] [address] [address] [place] [address] Edwin Larose MD Hyperthyroidism (Primary Dx); Multinodular goiter from Last 3 Months Surgical History Surgery Date Site/Laterality Comments OTHER SURGICAL HISTORY tonsil & adenoid removal SECTION 2003 LUMBAR PUNCTURE WO INJECTION , DIAGNOSTIC 10/29/2012 N/A Medical History Medical History Date Comments Hyperlipidemia Hyperlipidemia Hx Other Medical Headache, migra ine Anxiety Poor sleep pattern Fatigue Cluster headache Migraines PKD (polycystic kidney disease) Back pain Palpitation Tremors of nervous system Hyperthyroidism Family History Medical History Relation Name Comments Thyroid cancer Cousin Hypertension Father Hypertension; Diabetes Maternal Grandmother Stroke Maternal Grandmother Diabetes Mother Diabetes mellit us; Hypertension Mother Hypertension; Cancer Other Diabetes Other Cancer Paternal Grandfather Cancer Paternal Grandmother Relation Name Status Comments Cousin Father Maternal Grandmother Mother Other Paternal Grandfather Paternal Grandmother Social History Tobacco Use Types Packs/Day Years Used Date Smoking Tobacco: Never Smokeless Tobacco: Never Tobacco Cessation:Counseling Given: Not Answered Alcohol Use Standard Drinks/Week Comments No 0 (1 standard drink = 0.6 oz pur e alcohol) AUDIT-C Answer Date Recorded Q1: How often do you have a drink containing alcohol? Never 11/21/2023 Q2: How many drinks containi ng alcohol do you have on a typical day when you are drinking? Patient does not drink Q3: How often do you have si x or more drinks on one occasion? Never 11/21/2023 PHQ-2 Answer Date Recorded PHQ-2 Total Score (If total score is 3 or more points, staff should administer the PHQ-9) 0 05/26/2024 Personal Safety Answer Date Recorded Have you ever been in or are you currently in a harmful physical or emotional relationship or is someone making you feel afraid or unsafe? Denies 08/01/2023 Comments No Sex and Gender Information Value Date Recorded Sex Assigned at Not on file Legal Sex Female 2:34 AM EXTRAS CASTING DIRECTOR Gender Identity Female 02/23/2020 2:45 PM EXTRAS CASTING DIRECTOR Sexual Orientation Straight 02/23/2020 2: 45 PM EXTRAS CASTING DIRECTOR Obstetrics History Last Filed Vital Signs Vital Sign Reading Time Taken Comments Blood Pressure 138/86 05/26/2024 1:16 PM EXTRAS CASTING DIRECTOR Pulse 93 05/26/2024 1:16 PM EXTRAS CASTING DIRECTOR Temperature 36.7 C (98.1 F) 08/01/2023 6:42 PM CDT Respiratory Rate 18 11/21/2023 1:22 PM CDT Oxygen Saturation 100% 08/01/2023 6:42 PM CDT Inhaled Oxygen Concentration - - Weight 126.5 kg (278 lb 14.4 oz) 05/26/2024 1:16 PM EXTRAS CASTING DIRECTOR Height 170.2 cm (5' 7.01 ) 05/26/2024 1:16 PM CS T Body Mass Index 43.67 05/26/2024 1:16 PM EXTRAS CASTING DIRECTOR Plan of Treatment Health Maintenance Due Date Last Done Comments Breast Cancer Screening-Mammogram 1981 Cervical Cancer Screening 1981 Hepatitis C Screening 1981 Varicella Vaccines (1 of 2 - 13+ 2-dose series) 1994 Hepatitis B Screening 1999 Regular Well Visit/Exam 18-64 1999 Pneumococcal vaccine <65 (1 of 2 - PCV) 2000 Influenza Vaccine (#1) 2023 Depression Screening 05/26/2025 05/26/2024, 11/21/2023, 10/15/2019, Additional history exists DTaP/Tdap/Td Vaccine (3 - Td or Tdap) 10/15/2025 10/16/2015, 11/27/1994, 01/03/1994, Additional history exists HPV Vaccines Aged Out No longer eligi ble based on patient's age to complete this topic Procedures Procedure Name Priority Date/Time Associated Diagnosis Comments T4, FREE Routine 05/26/2024 2:23 PM EXTRAS CASTING DIRECTOR Hyperthyroidism T3, FREE Routine 05/26/2024 2:23 PM EXTRAS CASTING DIRECTOR Hyperthyroidism TSH Routine 05/26/2024 2:23 PM EXTRAS CASTING DIRECTOR Hyperthyroidism from Last 3 Months Results * (ABNORMAL) T3, free (05/26/2024 2:23 PM EXTRAS CASTING DIRECTOR) Free T3 4.8(H) 2.0 - 4.4 pg/mL Blood 05/26/2024 2:23 PM EXTRAS CASTING DIRECTOR 05/26/2024 5:57 PM EXTRAS CASTING DIRECTOR us Edwin Larose MD LAB BLOOD ORDERABLES Final Resul t Performing Organization Address [facility] Co de Phone Number MELISSA [address] [address] [facility] [place] [address] * TSH (05/26/2024 2:23 PM EXTRAS CASTING DIRECTOR) Thyroid Stimulating Hormone 0.50 0.30 - 4.20 mcIUnit/mL Blood 05/26/2024 2:23 PM EXTRAS CASTING DIRECTOR 05/26/2024 5:57 PM EXTRAS CASTING DIRECTOR Result [facility] us Edwin Larose MD LAB BLOOD ORDERABLES Final Resul t Performing Organization Address [facility] Co de Phone Number [facility] [address] [address] [facility] [employer] [place] [phone] * T4, free (05/26/2024 2:23 PM EXTRAS CASTING DIRECTOR) Free T4 1.19 0.90 - 1.70 ng/dL Blood 05/26/2024 2:23 PM EXTRAS CASTING DIRECTOR 05/26/2024 5:57 PM EXTRAS CASTING DIRECTOR us Edwin Larose MD LAB BLOOD ORDERABLES Final Resul t Performing Organization Address [facility] Co de Phone Number [facility] [address] [address] [facility] [place] [address] from Last 3 Months Insurance Care Teams Dyehouse Worker Relationship Specialty Start Date End Date Vito Kamara MD [address] [place] [id number] PCP - General Internal Medicine 07/09/19 Seferino Morton MD Consulting Physician Nephrology 07/09/19
--- OUTSIDE RECORDS SUMMARY | 2024-06-13 15:16 | XMS_ITS | Clinical Summary ---
Author Organization [facility] Address [address] [place] [address] Phone Care Team Providers Care Technical Support Intern Name Role Phone Phan Calderón MD Unavailable [phone] Vito Kamara MD Primary Care Provider [phone] Allergies Active Allergy Reactions Criticality Noted Date Comments Bee Venom Swelling 06/07/2015 Latex Rash,Other (see Comments) 06/07/2015 Break out Morphine Anaphylaxis 12/28/2023 Medications carvedilol (COREG) 25 MG Tablet Take 37.5 mg by mouth 2 times daily (with meals). Active irbesartan (AVAPRO) 300 MG Tablet Take 300 mg by mouth nightly. Active methIMAzole (TAPAZOLE) 5 MG Tablet Take 5-10 mg by mouth daily. Take 5 mg by mouth daily on Mondays through Saturdays and take 10 mg by mouth daily on Sundays Active Active Problems Problem Noted Date Diagnosed Date ELVIN (generalized anxiety disorder) 11/22/2021 MDD (major depressive disord er), recurrent episode, moderate 11/22/2021 Housing instability due to imminent risk of home lessness 11/22/2021 Hyperthyroidism 12/16/2018 Multinodular goiter 12/16/2018 Class 3 severe obesity due t o excess calories with serious comorbidity and body mass index (BMI) of 40.0 to 44.9 in adult 11/10/2018 High blood pressure 11/10/2018 Tachycardia 11/10/2018 Headache disorder 12/02/2012 Immunizations Immunization Administration Dates Next Due TDAP Vaccine 10/16/2015 Family History Medical History Relation Name Comments Depression Father Suicide Attempts Father Diabetes Maternal Grandmother Heart Attack Maternal Grandmother High Cholesterol Maternal Grandmother Stroke Maternal Grandmother High Cholesterol Mother Hypertension Mother Cancer Paternal Aunt pancreatic, ki dney Cancer Paternal Grandfather Cancer Paternal Grandmother bone, l zeynep Relation Name Status Comments Father by suicide by hanging himself when she was 5. Maternal Grandmother Mother Alive Paternal Aunt Paternal Grandfather Paternal Grandmother Social History Tobacco Use Types Packs/Day Years Used Date Smoking Tobacco: Never Smokeless Tobacco: Never Tobacco Cessation:Counseling Given: No Alcohol Use Standard Drinks/Week Comments No 0 (1 standard drink = 0.6 oz pur e alcohol) rare Sexually Active Control Partners Comments Not Currently Male split with par bhumikaer in march. Comments No Sex and Gender Information Value Date Recorded Sex Assigned at Not on file Legal Sex Female 9:44 AM CDT Gender Identity Not on file Sexual Orientation Not on file Last Filed Vital Signs Vital Sign Reading Time Taken Comments Blood Pressure 152/90 12/28/2023 10:05 PM CDT Pulse 91 12/28/2023 10:05 PM CDT Temperature 36.8 C (98.2 F) 12/28/2023 9:10 PM CDT Respiratory Rate 18 12/28/2023 10:05 PM CDT Oxygen Saturation 99% 12/28/2023 10:05 PM CDT Inhaled Oxygen Concentration - - Weight 129.3 kg (285 lb) 12/28/2023 9:10 PM CDT Height 170.2 cm (5' 7 ) 12/28/2023 9:10 PM CDT Body Mass Index 44.64 12/28/2023 9:10 PM CDT Plan of Treatment Health Maintenance Due Date Last Done Comments Hepatitis C Virus (HCV) Screening 1981 Mammogram 1981 Hepatitis B Immunization (1 of 3 - 19+ 3-dose series) 2000 Pap Smear 2002 Cervical Cancer Screening (CCS) 2011 HPV/Cotest 2011 Discussion re Starting/Frequ ency of Mammograms 2021 Influenza Immunization (#1) 2023 SARS-COV-2 Immunization ( season) 2023 Td Immunization Every 10 Yea rs (Adults With 1 Tdap) 10/15/2025 10/16/2015 Respiratory Syncytial Virus (RSV) Immunization (Adult) (1 - 1-dose 75+ series) 2056 DTaP/Tdap/Td Immunization Discontinued 10/16/2015 Meningococcal Immunization (ACWY) Aged Out No longer eligible based on patient's age to complete this topic Pneumococcal Immunization Combined Aged Out No longer eligible b ased on patient's age to complete this topic Rotavirus Immunization Aged Out No lo nger eligible based on patient's age to complete this topic Goals Goal Patient Goal Type Associated Problems Recent Progress Patient-Stated? Author Be a better mom and a better person Behavioral Health On track(2021 11:06 AM CDT) Yes Avelina Urban LCSW increase coping skills Behavioral Health No change(12/14 11:45 AM CDT) No Avelina Urban LCSW Note: Goal/Objective: Increase coping skills . Anticipated Time Frame for Goal Completion: 6 months Goal Reviewed with: parent Readiness to change: too much going on now to know Department associated with goal: [facility] Steps to achieve goal: will identify at least two coping skills/activities/habits that have helped to manage anxiety in the past. will identify at least three new coping skills/activities/habits that may help to prevent and/or cope with anxiety. 3. will identify a plan to implement coping skills and follow this plan for two weeks and evaluate the impact on anxiety 4. Will attend individual and/or group therapy at least 1x/month at least 6 sessions acheive housing and financial stablity Behavioral Health On track(2021 11:45 AM CDT) No Avelina Urban LCSW Note: Goal/Objective: Improve housing and financial stability. Anticipated Time Frame for Goal Completion: 6 months Goal Reviewed with: patient Readiness to change: Thinking about making a change Department associated with goal: [facility] Steps to achieve goal: will identify at least two personal goals per week. will identify and begin implementing at least two action steps to work toward personal goals. will identify and begin implementing at least one skill/activity/habit to improve motivation Insurance MEDICAID [facility] Advance Directives * Full Code (Latest Code Status on File) Date Activated Date Inactivated Comments 10/13/2015 7:11 AM 10/16/2015 5:09 PM CPR-Full Adonis atment: FULL ARREST: Attempt Resuscitation/CPR wit intubation and mechanical ventilation. PRE-ARREST: Use entire range of life support measures to stabilize the patient. * Full Code Date Activated Date Inactivated Comments 10/07/2015 11:14 PM 10/08/2015 3:43 AM CPR-Full Tr eatment: FULL ARREST: Attempt Resuscitation/CPR wit intubation and mechanical ventilation. PRE-ARREST: Use entire range of life support measures to stabilize the patient. * Full Code Date Activated Date Inactivated Comments 09/16/2015 2:21 PM 09/16/2015 6:51 PM CPR-Full Adonis atment: FULL ARREST: Attempt Resuscitation/CPR wit intubation and mechanical ventilation. PRE-ARREST: Use entire range of life support measures to stabilize the patient. * Full Code Date Activated Date Inactivated Comments 09/13/2015 10:07 PM 09/14/2015 1:23 AM CPR-Full Tr eatment: FULL ARREST: Attempt Resuscitation/CPR wit intubation and mechanical ventilation. PRE-ARREST: Use entire range of life support measures to stabilize the patient. * Full Code Date Activated Date Inactivated Comments 08/16/2015 11:03 AM 08/16/2015 3:44 PM CPR-Full Tr eatment: FULL ARREST: Attempt Resuscitation/CPR wit intubation and mechanical ventilation. PRE-ARREST: Use entire range of life support measures to stabilize the patient. Care Teams Technical Support Intern Relationship Specialty Start Date End Date Vito Kamara MD [address] [place] [address] PCP - General Internal Medicine 08/05/18 Phan Calderón MD [address] [place] [address] Neurology 12/12/12
--- OUTSIDE RECORDS SUMMARY | 2024-06-13 15:16 | XMS_ITS | Patient Health Summary ---
Author Organization [facility] Address [address] [place] [address] Care Team Providers Care Associate Trainer Name Role Phone Unavailable Primary Care Provider Unavailabl e Note from [facility],non-owned Affiliates and Associated Physician Practices is amultiple site organization consisting of ambulatory clinics and hospital sitesin [place], [place], [place] and [place]. This disclosure is being madepursuant to the Care Everywhere program and may not contain all information available regarding this patient. Last updated 18.[facility] Allergies * Bee(Swelling) * Latex(Rash) -Low Criticality Medications * Be aware that medications may not be up to date on this document. Alwaysverify current medications with the patient. * Vit-Fe Fumarate-FA ( VITAMIN) 28-0.8 MG tablet Take 1 Tab by mouth once daily * aspirin EC (ECOTRIN) 81 MG tablet Take 81 mg by mouth once daily * enoxaparin (LOVENOX) injection Inject 40 mg subcutaneously once daily * iron polysaccharides (NIFEREX 150) 150 MG capsule(Started 06/20/2015) Take 1 Cap by mouth at bedtime * phenazopyridine (PYRIDIUM) 200 MG tablet(Started 06/20/2015) Take 1 Tab by mouth 3 times daily, after meals Active Problems Problem Noted Date Diagnosed Date GBS (group B Streptococcus c arrsavita), +RV culture, currently 06/22/2015 Supervision of high risk in [facility] 06/19/2015 Antiphospholipid antibody syndrome complicating 06/19/2015 History of section 06/19/2015 Placental abruption in second trimester 06/19/19 16 Asthma, exercise induced 06/19/2015 Chronic migraine without aur a without status migrainosus, not intractable 06/19/2015 Resolved Problems Problem Noted Date Diagnosed Date Resolved Date E. coli UTI 06/19/2015 07/03/2015 Social History Tobacco Use Types Packs/Day Years [...] Comments Blood Pressure 122/70 06/20/2015 2:44 PM RAILROAD CAR LETTERER Pulse - - Temperature 36.6 C (97.9 F) 06/20/2015 8:47 AM RAILROAD CAR LETTERER Respiratory Rate 18 06/20/2015 2:44 PM RAILROAD CAR LETTERER Oxygen Saturation 100% 06/19/2015 7:40 PM RAILROAD CAR LETTERER Inhaled Oxygen Concentration - - Weight 112.5 kg (248 lb) 06/20/2015 2:00 PM RAILROAD CAR LETTERER Height 170.2 cm (5' 7 ) 06/20/2015 2:00 PM RAILROAD CAR LETTERER Body Mass Index 38.84 06/20/2015 2:00 PM RAILROAD CAR LETTERER Procedures * LAB RESULTS ORDER(Performed 06/22/2015) * IMAGING/RADIOLOGY/XRAY RESULTS ORDER(Performed 06/22/2015) * SONOGRAM - COMPLETE(Performed 06/20/2015) Performed for Supervision of high risk in second trimester ([facility]) * CHLAMYDIA + GC AMPLIFIED PROBE(Performed 06/19/2015) Performed for Supervision of high risk in second trimester ([facility]) * CULTURE STREP B(Performed 06/19/2015) Performed for Supervision of high risk in second trimester ([facility]) * URINE DRUG SCREEN IMMUNOASSAY(Performed 06/19/2015) Performed for Supervision of high risk in second trimester ([facility]) * URINALYSIS REFLEX MICROSCOPIC REFLEX CULTURE(Performed 06/19/2015) Performed for Supervision of high risk in second trimester ([facility]) * CULTURE URINE(Performed 06/19/2015) Performed for Supervision of high risk in second trimester ([facility]) * TYPE + SCREEN PANEL(Performed 06/19/2015) Performed for Supervision of high risk in second trimester ([facility]) * KLEIHAUER BETKE STAIN(Performed 06/19/2015) Performed for Supervision of high risk in second trimester ([facility]) * COMPREHENSIVE METABOLIC PANEL(Performed 06/19/2015) Performed for Supervision of high risk in second trimester ([facility]) * CBC W AUTO DIFFERENTIAL(Performed 06/19/2015) Performed for Supervision of high risk in second trimester ([facility]) * BLOOD TYPE VERIFICATION(Performed 06/19/2015) Results * LAB RESULTS ORDER (06/22/2015 2:35 AM RAILROAD CAR LETTERER) Narrative 06/22/2015 2:35 AM RAILROAD CAR LETTERER Ordered by an unspecified provider. Scanned Document LAB - THERAPEUTIC DR RDZ MONITORING ORDERABLES * IMAGING/RADIOLOGY/XRAY RESULTS ORDER (06/22/2015 2:35 AM RAILROAD CAR LETTERER) Anatomical Region Laterality Modality Other Narrative 06/22/2015 2:35 AM RAILROAD CAR LETTERER Ordered by an unspecified provider. Scanned Document IMAGING * SONOGRAM - COMPLETE (06/20/2015 10:30 AM RAILROAD CAR LETTERER) Anatomical Region Laterality Modality Other 06/20/2015 10:3 0 AM RAILROAD CAR LETTERER Narrative 06/20/2015 5:32 PM RAILROAD CAR LETTERER [facility] PHONE: FAX: Pat. Name: ARLETH FUNEZ Tylor Espinoza. No: [id number] Study Date: 06/20/2015 10:30am , Age: 11 1980, 35 Pregnancies: 7, Para 3, Ab 3 Height: 65 in Weight: 248 lb LMP: Unknown GA by US: 23w4d GA Selected: 23w3d (From Known E) EMERALD: 10/14/2015 Referring MD: Jaycee Mayo MD Performance Tester: Kiara Velazquez RDMS Hist/Ind: Obesity Patient fell at home 06/19/15 positive KB MEASUREMENTS & AGE GROWTH EVALUATION Measurement GA Range Srce %for GA Ratios ----- ---- ------- BPD 5.6 cm 23w0d (39s3i-81x2w) Hadl BPD 39% FL/BPD 0.71 (0.71 - 0.87* HC 21.4 cm 23w3d (21i5y-40e0b) Hadl HC 51% FL/AC 0.19 (0.20 - 0.24* AC 20.6 cm 25w1d (20d7z-88l5t) Hadl AC 86% HC/AC 1.04 (1.03 - 1.22) FL 3.9 cm 22w5d (26x4p-03k3g) Hadl FL 30% CI 0.73 (0.70 - 0.86) HL 3.9 cm 23w5d (13j3c-29r2q) Pieter HL 55% GA for sonogram 23w4d (46m3s-17k0q) Weight Estimate: based on (BPD,HC,AC,FL) Avg Weight: 649 gm (554-743) Hadlock : 1lbs, 6oz Normal: 612 gm (459-765) Hadlock Wt% 61% for 23w3d Cervical Length: 5.0 cm Heart Rate: 142 bpm Amniotic Fluid Index: 07.1cm (Deepest Pocket) DOPPLER Middle Cerebral Artery PSV PI 1.79 (1.35 - 2.46) Med PSV 29.9cm/s MoM 0.71(<1.5) CLINICAL SUMMARY Study Number: 1 A single fetus is identified cephalic presentation. The measurements today are consistent with appropriate size for the EMERALD provided. The EMERALD selected is based on a prior ultrasound examination. The amniotic fluid volume is within normal limits. The placenta is anterior. No major malformations are seen. The patient was advised that ultrasound does not allow detection of all structural or chromosomal abnormalities. DOPPLER STUDIES: The MCA PSV ratio is 21.13 ( 0.71 MoM), which is within normal limits for gestational age. TRANSVAGINAL ULTRASOUND: The transvaginal cervical length measures 5.0 cm with no funneling identified. Fundal pressure was not done . IMPRESSION: Single, live IUP at 23w3d Normal amniotic fluid volume. Appropriate growth. Placental location: anterior No features of abruptio placenta noted No major malformations are seen today within the limitations of ultrasound. Reassuring MCA dopplers Reassuring transvaginal cervical length RECOMMEND: Follow up ultrasound as clinically indicated. Thank you for allowing us the opportunity to care for your patient. Jose Bai MD <Electronic Signature> 06/20/2015 05:29pm Tammy Altamirano MD [facility] ORDERABLES * CHLAMYDIA + GC AMPLIFIED PROBE (06/19/2015 10:54 PM RAILROAD CAR LETTERER) Chlamydia Amplified Probe Negative Negative 06/20/2015 12:05 PM RAILROAD CAR LETTERER [facility] GC Amplified Probe Negative Negative 06/20/2015 12:05 PM RAILROAD CAR LETTERER [facility] Microbiology ENTIRE ENDOCERVIX / Unknown Collection / Unknown 06/19/2015 10:54 PM RAILROAD CAR LETTERER 06/19/2015 11:06 PM RAILROAD CAR LETTERER Narrative [facility]CRO[facility] - 06/20/2015 12:05 PM RAILROAD CAR LETTERER Results based on detection/no detection of ribosomal RNA by amplified method. Tammy Altamirano MD LAB - MICROBIOLOGY O RDRICKEYBLES Performing Organization Address City/State/[facility] de Phone Number [facility] [address] [place] [address], [facility] [phone] * (ABNORMAL) CULTURE STREP B (06/19/2015 10:53 PM RAILROAD CAR LETTERER) Culture Growth of Streptococcus agalactiae (Group B)(AA) GRANT 06/22/2015 11:23 AM RAILROAD CAR LETTERER [facility] Microbiology MISCELLANEOUS SAMPLES / Unknown Collection / Unknown 06/19/2015 10:53 PM RAILROAD CAR LETTERER 06/19/2015 11:06 PM RAILROAD CAR LETTERER Narrative [facility] - 06/22/2015 11:23 AM RAILROAD CAR LETTERER Susceptibility testing of penicillin, other beta-lactam antibiotics, and vancomycin is not necessary for beta-hemolytic streptococci groups A,B,C and G because resistant strains have not been recognized. 06/22/2015 11:23 AM CONNIE BARRAGAN RN notified. Read back and acknowledged results. Tammy Altamirano MD LAB - MICROBIOLOGY O MARY ANN Performing Organization Address [facility] Co de Phone Number [facility] [address] [place] [address], [facility] [phone] * (ABNORMAL) URINALYSIS ROUTINE W/REFLEX TO CULTURE (06/19/2015 9:09 PM RAILROAD CAR LETTERER) Color UA Yellow Straw, Yellow, Dark Yellow 06/19/2015 9:37 PM RAILROAD CAR LETTERER [facility] Clarity UA Clear 06/19/2015 9:37 PM RAILROAD CAR LETTERER [facility] Specific [place] UA 1.011 1.005 - 1.030 06/19/2015 9:37 PM RAILROAD CAR LETTERER [facility] pH UA 7.0 5.0 - 8.0 pH 06/19/2015 9:37 PM RAILROAD CAR LETTERER [facility] Protein UA Negative Negative 06/19/2015 9:37 PM RAILROAD CAR LETTERER [facility] Blood UA Negative Negative 06/19/2015 9:37 PM RAILROAD CAR LETTERER [facility] Leukocyte UA 1+(A) Negative 06/19/2015 9:37 PM RAILROAD CAR LETTERER [facility] Nitrite UA Negative Negative 06/19/2015 9:37 PM RAILROAD CAR LETTERER [facility] Glucose UA Negative Negative 06/19/2015 9:37 PM RAILROAD CAR LETTERER [facility] Ketone UA Trace(A) Negative 06/19/2015 9:37 PM RAILROAD CAR LETTERER [facility] Bilirubin UA Negative Negative 06/19/2015 9:37 PM RAILROAD CAR LETTERER [facility] Urobilinogen UA 0.2 0.1 - 1.0 EU/dL 06/19/2015 9:37 PM [facility] WBC UA Auto 5-10(A) 0-2, 2-5 # /hpf 06/19/2015 9:37 PM RAILROAD CAR LETTERER [facility] RBC UA Auto 2-5 0-2, 2-5 # /hpf 06/19/2015 9:37 PM RAILROAD CAR LETTERER [facility] Epithelial Cell UA Auto 5-10(A) 0-2, 2-5 # /hpf 06/19/2015 9:37 PM RAILROAD CAR LETTERER [facility] Bacteria UA Auto 2+(A) None seen 06/19/2015 9:37 PM [facility] Reflex Status Culture to follow 06/19/2015 9:37 PM [facility] Urine URINE SPECIMEN OBTAINED BY CLEAN CATCH PROCEDURE / Unknown Collection / Unknown 06/19/2015 9:09 PM RAILROAD CAR LETTERER 06/19/2015 9:27 PM RAILROAD CAR LETTERER Tammy Altamirano MD LAB - URINALYSIS ORD ERABLES [facility] [address] [place] [address] * CULTURE URINE (06/19/2015 9:09 PM RAILROAD CAR LETTERER) Pathologist [facility] Culture 10,000-50,000 CFU/mL urogenital ai GRANT 06/21/2015 12:44 PM [facility] Urine URINE SPECIMEN OBTAINED BY CLEAN CATCH PROCEDURE / Unknown Collection / Unknown 06/19/2015 9:09 PM RAILROAD CAR LETTERER 06/19/2015 9:27 PM RAILROAD CAR LETTERER Tammy Altamirano MD LAB - MICROBIOLOGY O RDERABLES [facility] [address] [place] [phone] * DRUG SCREEN TOX URINE PANEL (06/19/2015 9:09 PM RAILROAD CAR LETTERER) Pathologist [facility] Amphetamines Screen Urine Not Detected Not Detected 06/19/2015 9:51 PM [facility] Barbiturates Screen Urine Not Detected Not Detected 06/19/2015 9:51 PM [facility] Benzodiazepines Screen Urine Not Detected Not Detected 06/19/2015 9:51 PM [facility] Cannabinoids Screen Urine Not Detected Not Detected 06/19/2015 9:51 PM [facility] Cocaine Screen Urine Not Detected Not Detected 06/19/2015 9:51 PM [facility] Methadone Screen Urine Not Detected Not Detected 06/19/2015 9:51 PM [facility] Opiate Screen Urine Not Detected Not Detected 06/19/2015 9:51 PM [facility] Phencyclidine Screen Urine Not Detected Not Detected 06/19/2015 9:51 PM [facility] Urine URINE / Unknown Collection / Unknown 06/19/2015 9:09 PM RAILROAD CAR LETTERER 06/19/2015 9:29 PM [facility] - 06/19/2015 9:51 PM RAILROAD CAR LETTERER This drug screen is designed for MEDICAL purposes only. It is not to be used for legal purposes, including but not limited to worker's comp, police investigations, occupational issues, child custody, etc. Any positive result is only presumptive and must be confirmed with a separate confirmatory test ordered by the physician. Drug Screening Test Cutoff Values: AMPHETAMINES 1000 ng/mL BARBITURATES 200 ng/mL BENZODIAZEPINES 200 ng/mL CANNABINOIDS(THC) 50 ng/mL COCAINE 300 ng/mL METHADONE 300 ng/mL OPIATES 300 ng/mL PHENCYCLIDINE(PCP)25 ng/mL Tammy Altamirano MD LAB - URINE CHEMISTR Y ORDERABLES [facility] [address] [place] [address] * KLEIHAUER BETKE STAIN (06/19/2015 9:06 PM [facility]) Number Cells Counted 0 06/19/2015 10:15 PM [facility] /Maternal Ratio 0 <=0 06/19/2015 10:15 PM [facility] Blood Bank BLOOD SPECIMEN / Unknown Venipuncture / Unknown 06/19/2015 9:06 PM RAILROAD CAR LETTERER 06/19/2015 9:28 PM RAILROAD CAR LETTERER Narrative [facility] - 06/19/2015 10:15 PM [facility] RHOGAM DOSAGE CHART /Adult ratio Maternal Hemorrhage Range (mL) 300 ug vial dose 0 - 0.0029 0 - 14.9 1 0.003 - 0.0089 15.0 - 44.9 2 0.009 - 0.0149 45.0 - 74.9 3 0.015 - 0.0209 75.0 - 104.9 4 0.021 - 0.0269 105.0 - 134.9 5 0.027 - 0.0329 135.0 - 164.9 6 0.033 - 0.0389 165.0 - 194.9 7 0.039 - 0.0449 195.0 - 224.9 8 0.045 - 0.0509 225.0 - 254.9 9 0.051 - 0.0569 255.0 - 284.9 10 0.057 - 0.0629 285.0 - 314.9 11 0.063 - 0.0689 315.0 - 344.9 12 0.069 - 0.0749 345.0 - 374.9 13 0.075 - 0.0809 375.0 - 404.9 14 0.081 - 0.0869 405.0 - 434.9 15 0.087 - 0.0929 435.0 - 464.9 16 0.093 - 0.0989 465.0 - 494.5 17 0.099 - 0.100 495.0 - 500.0 18 Please note: No Rhogam is recommended for mothers who are Rh positive. Tammy Altamirano MD LAB - HEMATOLOGY ORD ERABLES [facility] [address] [place], [place] [id number] * TYPE + SCREEN PANEL (06/19/2015 9:06 PM [facility]) ABO O 06/19/2015 10:05 PM [facility] Rh Type Positive 06/19/2015 10:05 PM [facility] Comment:History check perfor med. No retype required. Antibody Screen Negative 06/19/2015 10:05 PM [facility] Miscellaneous samples (specimen) BLOOD SPECIMEN / Unknown Venipuncture / Unknown 06/19/2015 9:06 PM RAILROAD CAR LETTERER 06/19/2015 9:29 PM RAILROAD CAR LETTERER Tammy Altamirano MD LAB - BLOOD BANK ORD ERABLES [facility] [address] [place] [address], [facility] * (ABNORMAL) CBC W AUTO DIFFERENTIAL (06/19/2015 9:06 PM [facility]) WBC 11.6(H) 4.4 - 10.7 x10^9/L 06/19/2015 9:33 PM [facility] WBC Corrected x10^9/L 06/19/2015 9:33 PM [facility] RBC 3.81 3.80 - 5.20 x10^12/L 06/19/2015 9:33 PM [facility] Hemoglobin 11.0(L) 12.0 - 15.6 gm/dL 06/19/2015 9:33 PM [facility] Hematocrit 31.3(L) 35.9 - 45.5 % 06/19/2015 9:33 PM [facility] MCV 82.2 80.7 - 98.3 fl 06/19/2015 9:33 PM [facility] MCH 28.9 26.7 - 34.0 pg 06/19/2015 9:33 PM [facility] MCHC 35.1 30.8 - 35.9 gm/dL 06/19/2015 9:33 PM [facility] Platelet Count 170 153 - 416 x10^9/L 06/19/2015 9:33 PM [facility] RDW-CV 13.8 12.1 - 14.9 % 06/19/2015 9:33 PM [facility] MPV 10.6 9.4 - 12.9 fl 06/19/2015 9:33 PM [facility] Neutrophils % 77.2(H) 44.0 - 73.0 % 06/19/2015 9:33 PM [facility] Lymphocytes % 14.3(L) 20.0 - 43.0 % 06/19/2015 9:33 PM [facility] Monocytes % 5.8 5.0 - 13.0 % 06/19/2015 9:33 PM [facility] Eosinophils % 2.1 0.0 - 6.0 % 06/19/2015 9:33 PM [facility] Basophils % 0.1 0.0 - 2.0 % 06/19/2015 9:33 PM [facility] Immature Granulocytes 0.5 0 - 1 % 06/19/2015 9:33 PM [facility] Neutrophil Absolute 9.00(H) 2.01 - 7.14 x10^9/L 06/19/2015 9:33 PM [facility] Lymphocytes Absolute 1.66 1.07 - 3.94 x10^9/L 06/19/2015 9:33 PM [facility] Monocytes Absolute 0.67 0.26 - 1.07 x10^9/L 06/19/2015 9:33 PM [facility] Eosinophils Absolute 0.24 0 - 0.47 x10^9/L 06/19/2015 9:33 PM [facility] Basophils Absolute 0.01 0 - 0.08 x10^9/L 06/19/2015 9:33 PM [facility] Immature Granulocytes Absolute 0.06 0.00 - 0.06 x10^9/L 06/19/2015 9:33 PM [facility] nRBC Auto 0 /100 WBC 06/19/2015 9:33 PM [facility] Blood BLOOD SPECIMEN / Unknown Venipuncture / Unknown 06/19/2015 9:06 PM RAILROAD CAR LETTERER 06/19/2015 9:28 PM [facility] Tammy Altamirano MD LAB - HEMATOLOGY ORD ERABLES [facility] [address] [place] [address] * (ABNORMAL) COMPREHENSIVE METABOLIC PANEL (06/19/2015 9:06 PM [facility]) [facility] Glucose 68(L) 74 - 106 mg/dL 06/19/2015 9:51 PM [facility] Sodium 139 136 - 145 mmol/L 06/19/2015 9:51 PM [facility] Potassium 3.4(L) 3.5 - 5.1 mmol/L 06/19/2015 9:51 PM [facility] Chloride 108(H) 98 - 107 mmol/L 06/19/2015 9:51 PM [facility] CO2 22 22 - 31 mmol/L 06/19/2015 9:51 PM [facility] Calcium 8.3(L) 8.5 - 10.1 mg/dL 06/19/2015 9:51 PM [facility] Anion Gap 9 5 - 20 mmol/L 06/19/2015 9:51 PM [facility] BUN 3(L) 7 - 21 mg/dL 06/19/2015 9:51 PM [facility] Creatinine 0.32(L) 0.50 - 1.30 mg/dL 06/19/2015 9:51 PM [facility] Alkaline Phosphatase 53 38 - 126 U/L 06/19/2015 9:51 PM [facility] ALT 15 12 - 78 U/L 06/19/2015 9:51 PM [facility] AST 11 5 - 40 U/L 06/19/2015 9:51 PM [facility] Protein Total 6.2(L) 6.4 - 8.2 gm/dL 06/19/2015 9:51 PM [facility] Albumin 2.7(L) 3.4 - 5.0 gm/dL 06/19/2015 9:51 PM [facility] Bilirubin Total 0.3 0.2 - 1.0 mg/dL 06/19/2015 9:51 PM [facility] eGFR by MDRD >60 >60 mL/min/1.7 3m2 06/19/2015 9:51 PM [facility] eGFR by MDRD >60 >60 mL/min/1.7 3m2 06/19/2015 9:51 PM [facility] Blood BLOOD SPECIMEN / Unknown Venipuncture / Unknown 06/19/2015 9:06 PM [facility] 06/19/2015 9:27 PM [facility] Tammy Altamirano MD LAB - CHEMISTRY JACQUIE GORDILLO [facility] [address] [place] [address] * BLOOD TYPE VERIFICATION (06/19/2015 9:05 PM [facility]) ABO O 06/19/2015 10:06 PM [facility] Rh Type Positive 06/19/2015 10:06 PM RAILROAD CAR LETTERER [facility] Miscellaneous samples (specimen) BLOOD SPECIMEN / Unknown 06/19/2015 9:05 PM RAILROAD CAR LETTERER 06/19/2015 9:57 PM RAILROAD CAR LETTERER Jose Bai MD LAB - BLOOD BANK ORD ERABLES [facility] [address] [place], [place] [id number] [place] [address]
--- OUTSIDE RECORDS SUMMARY | 2024-06-13 15:16 | XMS_ITS | Encounter Summary ---
Author Organization [facility] Address 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 Gender Identity Not on file Sexual Orientation Not on file documented as of this encounter Plan of Treatment Not on file documented as of this encounter Procedures Procedure Name Priority Date/Time Associated Diagnosis Comments HCG QUANTITATIVE, BLOOD Routine 01/14/2008 4:01 PM CDT documented in this encounter Results * (ABNORMAL) HCG QUANTITATIVE, BLOOD (01/14/2008 4:01 PM CDT) HCG QUANT, BLOOD 10(H) 0 - 5 mIU/mL [facility] Comment: Result of 5 - 25 [...] Before making a diagnosis of malignancy or ectopic ,the result of this test should be confirmed with a urine HCG test and correlated with other clinical evidence. Blood specimen (specimen) 01/14/2008 4:01 PM CDT 01/14/2008 4:09 PM CDT us Rosa Reyes MD CHEMISTRY ORDERABLES Edited INTERFACE SYSTEM Refer to clinic/hospital department [facility] CLIA# [id number] [address] [place] [address] documented in this encounter Visit Diagnoses Diagnosis Missed documented in this encounter
--- OUTSIDE RECORDS SUMMARY | 2024-06-13 15:16 | XMS_ITS | Encounter Summary ---
Author Organization [facility] Address [address] [place] [address] Care Team Providers Care Battery Tester And Repairer Name Role Phone Unavailable Primary Care Provider Unavailabl e Encounter Details Date Type Department Care Team (Late st Contact Info) Description 04/08/1998 Outpatient Historical [facility] EM[facility] Justo Peace MD [address] [facility] [place] [address] Er, Authorized P NO ADDRESS ON FILE Contusion of abdominal wall (Primary Dx) Social History Tobacco Use Types Packs/Day Years Used Date Smoking Tobacco: Never Assessed Comments Unknown Sex and Gender Information Value Date Recorded Sex Assigned at Not on file Legal Sex Female 2:39 AM CRUISE AGENT Gender Identity Not on file Sexual Orientation Not on file documented as of this encounter Plan of Treatment Not on file documented as of this encounter Visit Diagnoses Diagnosis Contusion of abdominal wall- Primary documented in this encounter
--- OUTSIDE RECORDS SUMMARY | 2024-06-13 15:16 | XMS_ITS | Encounter Summary ---
Author Organization [employer] Address 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 Blood specimen (specimen) 01/09/2008 4:20 PM CDT 01/09/2008 4:39 PM CDT Narrative INTERFACE SYSTEM - 01/12/2008 10:40 AM CDT faxed to [phone] 01/12/08 10:40 AM ve Rosa Reyes MD CHEMISTRY ORDERABLES Edited INTERFACE SYSTEM Refer to clinic/hospital department [facility] CLIA# [id number] [address] [place] [address] * PROGESTERONE (01/09/2008 4:20 PM CDT) PROGESTERONE 0.8 ng/mL [facility] Comment: Progesterone Reference Range: Female: Normally Menstruating Female Follicular Phase 0.2 - 1.5 ng/mL Ovulation Phase 0.8 - 3.0 ng/mL Luteal Phase 1.7 - 27.0 ng/mL Postmenopausal 0.1 - 0.8 ng/mL No Pediatric Reference Range Available. Blood specimen (specimen) 01/09/2008 4:20 PM CDT 01/09/2008 4:39 PM CDT us Rosa Reyes MD CHEMISTRY ORDERABLES Final Re sult INTERFACE SYSTEM Refer to clinic/hospital department [facility] CLIA# [id number] [address] [place] [address] documented in this encounter Visit Diagnoses Diagnosis Irregular menstrual cycle documented in this encounter
--- OUTSIDE RECORDS SUMMARY | 2024-06-13 15:16 | XMS_ITS | Encounter Summary ---
Author Organization [employer] Address [address] [place] [address] Care Team Providers Care Water Pump Installer Name Role Phone Unavailable Primary Care Provider Unavailabl e Encounter Details Date Type Department Care Team (Latest Contact Info) Description 09/30/2005 Outpatient Historical [facility] PATIENT IN A BED ReyesRosa MD [address] 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
--- OUTSIDE RECORDS SUMMARY | 2024-06-13 15:16 | XMS_ITS | Encounter Summary ---
Author Organization [employer] Address 

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
--- OUTSIDE RECORDS SUMMARY | 2024-06-13 15:16 | XMS_ITS | Encounter Summary ---
Author Organization [employer] Address [address] [place] [address] Care Team Providers Care Hog Grader Name Role Phone Unavailable Primary Care Provider Unavailabl e Encounter Details Date Type Department Care Team (Late st Contact Info) Description 08/06/2005 Outpatient Historical [facility] Taj Argueta MD [address] 

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
--- OUTSIDE RECORDS SUMMARY | 2024-06-13 15:16 | XMS_ITS | Encounter Summary ---
Author Organization [employer] Address [address] [place] [address] Care Team Providers Care Head Baker Name Role Phone Unavailable Primary Care Provider Unavailabl e Encounter Details Date Type Department Care Team (Latest Contact Info) Description 02/24/2006 Outpatient Historical HIS OB PREADMIT Haris Whiting MD [address] [place] [address] Rosa Reyes MD [address] [place], [place] [id number] Other Current Maternal Conditions Classifiable Elsewhere, Antepartum (Primary Dx) Social History Tobacco Use Types Packs/Day Years Used Date Smoking Tobacco: Never Assessed Comments Unknown Sex and Gender Information Value Date Recorded Sex Assigned at Not on file 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 Gender Identity Not on file Sexual Orientation Not on file documented as of this encounter Plan of Treatment Not on file documented as of this encounter Procedures Procedure Name Priority Date/Time Associated Diagnosis Comments CBC WITH DIFFERENTIAL Routine 02/24/2006 3:00 PM GRADUATE TEACHING ASSISTANT CBC WITH DIFFERENTIAL Routine 02/24/2006 3:00 PM GRADUATE TEACHING ASSISTANT URINALYSIS W/REFLEX MICROSCOPIC Routine 02/24/2006 2:56 PM GRADUATE TEACHING ASSISTANT documented in this encounter Results * (ABNORMAL) CBC WITH DIFFERENTIAL (02/24/2006 3:00 PM GRADUATE TEACHING ASSISTANT) NEUTROPHILS 76(H) 45 - 70 % INTERFAC E SYSTEM LYMPHOCYTES 14(L) 16 - 45 % INTERFAC E SYSTEM MONOCYTES 8 3 - 13 % INTERFACE SYSTEM EOSINOPHILS 2 0 - 7 % INTERFAC E SYSTEM BASOPHILS 0 0 - 2 % INTERFACE SYSTEM NEUTROPHIL ABSOLUTE 7.57(H) 1.90 - 7.00 K/uL INTERFACE SYSTEM LYMPHOCYTE ABSOLUTE 1.42 0.70 - 4.50 K/uL INTERFACE SYSTEM MONOCYTE ABSOLUTE 0.76 0.10 - 1.30 K/uL INTERFACE SYSTEM EOSINOPHIL ABSOLUTE 0.18 0.00 - 0.70 K/uL INTERFACE SYSTEM BASOPHILS ABSOLUTE 0.01 0.00 - 0.20 K/uL INTERFACE SYSTEM 02/24/2006 3:00 PM GRADUATE TEACHING ASSISTANT Rosa Reyes MD HEMATOLOGY ORDERABLES Final R esult Performing Organization Address [facility] Phone Number INTERFACE SYSTEM Refer to clinic/hospital department * (ABNORMAL) CBC WITH DIFFERENTIAL (02/24/2006 3:00 PM GRADUATE TEACHING ASSISTANT) WBC 9.9(H) 4.0 - 9.8 K/uL INTERFACE SYSTEM RBC 4.29 3.90 - 4.90 M/uL INTERFACE SYSTEM HEMOGLOBIN 12.1 11.8 - 14.8 g/dL INTERFACE SYSTEM HEMATOCRIT 36.2 35.5 - 44.0 % INTERFACE SYSTEM MCV 84.4 82.0 - 99.0 fL INTERFACE SYSTEM MCH 28.2 27.2 - 32.6 pg INTERFACE SYSTEM MCHC 33.4 31.5 - 35.5 % INTERFACE SYSTEM RDW 14.7(H) 11.5 - 14.5 % INTERFACE SYSTEM RDW-STDEV 45.2 37.1 - 48.7 fL INTERFACE SYSTEM PLATELETS 188 140 - 350 K/uL INTERFACE SYSTEM MPV 10.2 9.3 - 12.4 fL INTERFACE SYSTEM 02/24/2006 3:00 PM GRADUATE TEACHING ASSISTANT Rosa Reyes MD HEMATOLOGY ORDERABLES Final R esult Performing Organization Address [facility] de Phone Number INTERFACE SYSTEM Refer to clinic/hospital department * URINALYSIS (02/24/2006 2:56 PM GRADUATE TEACHING ASSISTANT) COLOR UA Yellow INTERFACE SYSTEM CLARITY UA Clear Clear INTERFACE SYSTEM SPECIFIC GRAVITY UA 1.009 1.001 - 1.035 INTERFACE SYSTEM PH UA 7.5 5.0 - 8.0 INTERFACE SYSTEM LEUKOCYTE ESTERASE UA Negative Negative INTERFACE SYSTEM NITRITE UA Negative Negative INTERFACE SYSTEM PROTEIN UA Negative Negative INTERFACE SYSTEM GLUCOSE UA Negative Negative INTERFACE SYSTEM KETONES UA Negative Negative INTERFACE SYSTEM UROBILINOGEN UA <1 <=1 mg/dL INTE RFACE SYSTEM BILIRUBIN UA Negative Negative INTERFA CE SYSTEM BLOOD UA Negative Negative INTERFACE SYSTEM 02/24/2006 2:56 PM GRADUATE TEACHING ASSISTANT Rosa Reyes MD URINE ORDERABLES Final Result INTERFACE SYSTEM Refer to clinic/hospital department documented in this encounter Visit Diagnoses Diagnosis Other current maternal conditions classifiable elsewhere, antepartum- Primary documented in this encounter
--- OUTSIDE RECORDS SUMMARY | 2024-06-13 15:16 | XMS_ITS | Encounter Summary ---
Author Organization [facility] Address [address] [place] [address] Care Team Providers Care Systems Consultant Name Role Phone Unavailable Primary Care Provider Unavailabl e Encounter Details Date Type Department Care Team (Latest Contact Info) Description 03/06/2006 Inpatient Historical HIS OB PREADMIT Rosa Reyes MD [address] [facility] [address] [place] [address] Abnormality in Heart Rate/Rhythm, Delivered (Primary Dx) Social History Tobacco Use Types Packs/Day Years Used Date Smoking Tobacco: Never Assessed Comments Unknown Sex and Gender Information Value Date Recorded Sex Assigned at Not on file Legal Sex Female 2:39 AM HEALTH INFORMATION TECHNICIAN Gender Identity Not on file Sexual Orientation Not on file documented as of this encounter Plan of Treatment Not on file documented as of this encounter Procedures Procedure Name Priority Date/Time Associated Diagnosis Comments CBC WITH DIFFERENTIAL Routine 03/08/2006 4:25 AM HEALTH INFORMATION TECHNICIAN CBC WITH DIFFERENTIAL Routine 03/08/2006 4:25 AM HEALTH INFORMATION TECHNICIAN CBC WITH DIFFERENTIAL Routine 03/06/2006 6:22 AM HEALTH INFORMATION TECHNICIAN CBC WITH DIFFERENTIAL Routine 03/06/2006 6:22 AM HEALTH INFORMATION TECHNICIAN documented in this encounter Results * (ABNORMAL) CBC WITH DIFFERENTIAL (03/08/2006 4:25 AM HEALTH INFORMATION TECHNICIAN) NEUTROPHILS 71(H) 45 - 70 % INTERFAC E SYSTEM LYMPHOCYTES 20 16 - 45 % INTERFAC E SYSTEM MONOCYTES 8 3 - 13 % INTERFACE SYSTEM EOSINOPHILS 1 0 - 7 % INTERFAC E SYSTEM BASOPHILS 0 0 - 2 % INTERFACE SYSTEM NEUTROPHIL ABSOLUTE 7.91(H) 1.90 - 7.00 K/uL INTERFACE SYSTEM LYMPHOCYTE ABSOLUTE 2.18 0.70 - 4.50 K/uL INTERFACE SYSTEM MONOCYTE ABSOLUTE 0.89 0.10 - 1.30 K/uL INTERFACE SYSTEM EOSINOPHIL ABSOLUTE 0.13 0.00 - 0.70 K/uL INTERFACE SYSTEM BASOPHILS ABSOLUTE 0.01 0.00 - 0.20 K/uL INTERFACE SYSTEM 03/08/2006 4:25 AM HEALTH INFORMATION TECHNICIAN Rosa Reyes MD HEMATOLOGY ORDERABLES Final R esult INTERFACE SYSTEM Refer to clinic/hospital department * (ABNORMAL) CBC WITH DIFFERENTIAL (03/08/2006 4:25 AM HEALTH INFORMATION TECHNICIAN) WBC 11.1(H) 4.0 - 9.8 K/uL INTERFACE SYSTEM RBC 3.46(L) 3.90 - 4.90 M/uL INTERFACE SYSTEM HEMOGLOBIN 9.9(L) 11.8 - 14.8 g/dL INTERFACE SYSTEM HEMATOCRIT 29.0(L) 35.5 - 44.0 % INTERFACE SYSTEM MCV 83.8 82.0 - 99.0 fL INTERFACE SYSTEM MCH 28.6 27.2 - 32.6 pg INTERFACE SYSTEM MCHC 34.1 31.5 - 35.5 % INTERFACE SYSTEM RDW 14.9(H) 11.5 - 14.5 % INTERFACE SYSTEM RDW-STDEV 45.8 37.1 - 48.7 fL INTERFACE SYSTEM PLATELETS 159 140 - 350 K/uL INTERFACE SYSTEM MPV 10.1 9.3 - 12.4 fL INTERFACE SYSTEM 03/08/2006 4:25 AM HEALTH INFORMATION TECHNICIAN Rosa Reyes MD HEMATOLOGY ORDERABLES Final R esult INTERFACE SYSTEM Refer to clinic/hospital department * (ABNORMAL) CBC WITH DIFFERENTIAL (03/06/2006 6:22 AM HEALTH INFORMATION TECHNICIAN) NEUTROPHILS 72(H) 45 - 70 % INTERFAC E SYSTEM LYMPHOCYTES 19 16 - 45 % INTERFAC E SYSTEM MONOCYTES 7 3 - 13 % INTERFACE SYSTEM EOSINOPHILS 2 0 - 7 % INTERFAC E SYSTEM BASOPHILS 0 0 - 2 % INTERFACE SYSTEM NEUTROPHIL ABSOLUTE 6.94 1.90 - 7.00 K/uL INTERFACE SYSTEM LYMPHOCYTE ABSOLUTE 1.80 0.70 - 4.50 K/uL INTERFACE SYSTEM MONOCYTE ABSOLUTE 0.68 0.10 - 1.30 K/uL INTERFACE SYSTEM EOSINOPHIL ABSOLUTE 0.16 0.00 - 0.70 K/uL INTERFACE SYSTEM BASOPHILS ABSOLUTE 0.01 0.00 - 0.20 K/uL INTERFACE SYSTEM 03/06/2006 6:22 AM HEALTH INFORMATION TECHNICIAN Rosa Reyes MD HEMATOLOGY ORDERABLES Final R esult Performing Organization Address City/[facility] de Phone Number INTERFACE SYSTEM Refer to clinic/hospital department * (ABNORMAL) CBC WITH DIFFERENTIAL (03/06/2006 6:22 AM HEALTH INFORMATION TECHNICIAN) WBC 9.6 4.0 - 9.8 K/uL INTERFACE SYSTEM RBC 4.20 3.90 - 4.90 M/uL INTERFACE SYSTEM HEMOGLOBIN 12.2 11.8 - 14.8 g/dL INTERFACE SYSTEM HEMATOCRIT 35.0(L) 35.5 - 44.0 % INTERFACE SYSTEM MCV 83.3 82.0 - 99.0 fL INTERFACE SYSTEM MCH 29.0 27.2 - 32.6 pg INTERFACE SYSTEM MCHC 34.9 31.5 - 35.5 % INTERFACE SYSTEM RDW 14.8(H) 11.5 - 14.5 % INTERFACE SYSTEM RDW-STDEV 45.4 37.1 - 48.7 fL INTERFACE SYSTEM PLATELETS 181 140 - 350 K/uL INTERFACE SYSTEM MPV 10.2 9.3 - 12.4 fL INTERFACE SYSTEM 03/06/2006 6:22 AM HEALTH INFORMATION TECHNICIAN Rosa Reyes MD HEMATOLOGY ORDERABLES Final R esult Performing Organization Address City/[facility] de Phone Number INTERFACE SYSTEM Refer to clinic/hospital department documented in this encounter Visit Diagnoses Diagnosis Abnormality in heart rate/rhythm, delivered, with or without mention of antepartum condition- Primary documented in this encounter
--- OUTSIDE RECORDS SUMMARY | 2024-06-13 15:16 | XMS_ITS | Referral Summary ---
Author Organization [facility] Address [address] [place] [address] Care Team Providers Care Recruiter Name Role Phone Seferino Morton MD Unavailable [phone] Vito Kamara MD Primary Care Provider [phone] Encounters Date Type Department Care Team Description 05/26/2024 2:10 PM ASBESTOS WIRE FINISHER Lab [facility] [address] [place] [phone] Hyperthyroidism 05/26/2024 1:15 PM ASBESTOS WIRE FINISHER Office Visit [facility] [address] [facility] [address] [place] [phone] Edwin Larose MD Hyperthyroidism (Primary Dx); Multinodular goiter from Last 3 Months Allergies Active Allergy Reactions Criticality Noted Date [...] tablet 3 4 08/09/19 25 Active omega 1-agq-eyr-fish oil 100-400-1,000 mg capsule Take 1,000 mg [...] tapazole. Assessment & Plan (05/16/2023 3:00 PM ASBESTOS WIRE FINISHER): Chronic, uncontrolled Will adjust dose of tapazole accordingly Will recheck labs in 3 months F/u in 6 m Assessment & Plan (08/30/2022 4:56 PM CDT): Chronic, uncontrolled Restart Tapazole 10 mg daily Recheck TFTs in 2 months Follow-up in 4 Assessment & Plan (02/24/2020 5:46 PM ASBESTOS WIRE FINISHER): Thyroid function tests requested. Will adjust dose [...] by x2 Supervision of high risk in [facility] 06/19/2015 Overview (10/26/2018): Overview: PNC: Dr. Jaycee Mayo Dating: L= 1st trimester O+ S/p flu vaccine GBS positive Headache disorder 12/02/2012 Cervico-occipital neuralgia 10/01/2012 Overview (07/27/2016): Occipital neuralgia Migraine 10/01/2012 Overview (07/27/2016): Chronic migraine Social History Tobacco Use Types Packs/Day Years [...] on file Legal Sex Female 2:34 AM ASBESTOS WIRE FINISHER Gender Identity Female 02/23/2020 2:45 PM ASBESTOS WIRE FINISHER Sexual Orientation Straight 02/23/2020 2: 45 PM ASBESTOS WIRE FINISHER Last Filed Vital Signs Vital Sign Reading Time Taken Comments Blood Pressure 138/86 05/26/2024 1:16 PM ASBESTOS WIRE FINISHER Pulse 93 05/26/2024 1:16 PM ASBESTOS WIRE FINISHER Temperature 36.7 C (98.1 F) 08/01/2023 6:42 PM CDT Respiratory Rate 18 11/21/2023 1:22 PM CDT Oxygen Saturation 100% 08/01/2023 6:42 PM CDT Inhaled Oxygen Concentration - - Weight 126.5 kg (278 lb 14.4 oz) 05/26/2024 1:16 PM ASBESTOS WIRE FINISHER Height 170.2 cm (5' 7.01 ) 05/26/2024 1:16 PM CS T Body Mass Index 43.67 05/26/2024 1:16 PM ASBESTOS WIRE FINISHER Plan of Treatment Not on file Procedures Procedure Name Priority Date/Time Associated Diagnosis Comments T4, FREE Routine 05/26/2024 2:23 PM ASBESTOS WIRE FINISHER Hyperthyroidism T3, FREE Routine 05/26/2024 2:23 PM ASBESTOS WIRE FINISHER Hyperthyroidism TSH Routine 05/26/2024 2:23 PM ASBESTOS WIRE FINISHER Hyperthyroidism from Last 3 Months Results * (ABNORMAL) T3, free (05/26/2024 2:23 PM ASBESTOS WIRE FINISHER) Free T3 4.8(H) 2.0 - 4.4 pg/mL Blood 05/26/2024 2:23 PM ASBESTOS WIRE FINISHER 05/26/2024 5:57 PM ASBESTOS WIRE FINISHER Edwin Larose MD LAB BLOOD ORDERABLES Final Resul t Performing Organization Address City/[facility] Co de Phone Number MELISSA [phone] [address] [facility] [place] [address] * TSH (05/26/2024 2:23 PM ASBESTOS WIRE FINISHER) Thyroid Stimulating Hormone 0.50 0.30 - 4.20 mcIUnit/mL Blood 05/26/2024 2:23 PM ASBESTOS WIRE FINISHER 05/26/2024 5:57 PM ASBESTOS WIRE FINISHER us Edwin Larose MD LAB BLOOD ORDERABLES Final Resul t Performing Organization Address City/State/[facility] Co de Phone Number MELISSA [phone] [address] [facility] [place] [address] * T4, free (05/26/2024 2:23 PM ASBESTOS WIRE FINISHER) Free T4 1.19 0.90 - 1.70 ng/dL Blood 05/26/2024 2:23 PM ASBESTOS WIRE FINISHER 05/26/2024 5:57 PM ASBESTOS WIRE FINISHER us Edwin Larose MD LAB BLOOD ORDERABLES Final Resul t MELISSA [phone] [address] [place] [address] from Last 3 Months Insurance [facility] Care Teams Recruiter Relationship Specialty Start Date End Date Vito Kamara MD [address] [place] [address] PCP - General Internal Medicine 07/09/19 Seferino Morton MD Consulting Physician Nephrology 07/09/19
[2024-06-13 16:00] LABS: EDCOVIDSCREEN Negative (Negative); EDINFLUASCREEN Negative (Negative); EDINFLUBSCREEN Negative (Negative); EDSTREPNEGPOS1 Negative (Negative)
--- NOTE | 2024-06-13 16:04 | ED.GENADULT ---
HPI - General Adult General Chief complaint: Upper Respiratory Infection Stated complaint: sore throat, cough, hurts to breath, headache Source: patient Mode of arrival: ambulatory Limitations: no limitations History of Present Illness HPI narrative: Patient presents for evaluation of sick symptoms for last 5 days. Symptoms include cough, SOB during coughing episodes, sensation that an elephant is sitting in her chest, sinus congestion, runny nose and sore throat. No fever, nausea, or vomiting. One of her coworkers has a chronic cough and indicated that it was long-term sequelae from COVID. She does not smoke. She took coricidin for her symptoms. Her cough is keeping her up at night. She indicates she had bronchitis last year which ultimately turned into pneumonia. Related Data Home Medications ?Medication ?Instructions ?Recorded ?Confirmed ?Last Taken ?Type carvedilol 25 mg tablet See Rx Instructions .Route .COMPLEX 11/04/23 11/29/23 Unknown History irbesartan 300 mg tablet 300 mg PO DAILY 11/04/23 11/29/23 Unknown History methimazole 5 mg tablet 5 mg PO DAILY 11/04/23 11/29/23 Unknown History omega-3 fatty acids PO 11/29/23 Unknown History Allergies Allergy/AdvReac Type Severity Reaction Status Date / Time bee venom protein (honey Allergy Swelling Verified 06/13/24 15:23 bee) (bees) Latex, Natural Rubber Allergy Unknown Verified 06/13/24 15:23 morphine Allergy Unknown Verified 06/13/24 15:23 Review of Systems Review of Systems: CONSTITUTIONAL: Denies fever, chills, or sweats. EYES: Denies visual changes, redness, or discharge. ENT: Reports sinus congestion, runny nose, sneezing, and sore throat CARDIOVASCULAR: Denies chest pain, palpitations, or edema. RESPIRATORY: Reports cough, SOB during coughing episodes and sensation that an elephant is sittting on her chest. GASTROINTESTINAL: Denies abdominal pain, nausea, vomiting, or diarrhea. GENITOURINARY: Denies dysuria or hematuria. SKIN: Denies rash or itching. MUSCULOSKELETAL: Denies back pain, joint pain, or myalgia. NEUROLOGIC: Denies headache, numbness, dizziness, or weakness. PSYCHIATRIC: Denies anxiety or depression. [facility] Past Medical History Medical History Bronchitis Migraine Stage 2 chronic kidney disease Kidney disease polycystic kidney disease Surgical History Surgical History Previous section History of tonsillectomy Family History Family History Mother Family history non-contributory Social History Social History Smoking status: Never smoker Alcohol use details: no alcohol Substance use: current Substance use type: marijuana Living arrangements: with family Gender identity (if verbalized by the patient): Female Exam Narrative: GENERAL: Well-appearing, well-nourished, and in no acute distress. HEAD: Normocephalic, atraumatic. EYES: PERRLA and EOMI. ENT: Nares clear, no rhinorrhea or epistaxis. Mucous membranes moist. Oropharynx without tonsillar hypertrophy exudate or other lesions. Bilateral TMs pearly webb nonbulging NECK: Supple. No adenopathy or masses. No carotid bruits or JVD CHEST: Cough present on exam. Clear to auscultation. No respiratory distress. No wheezes rales or rhonchi HEART: Regular rate and rhythm. No murmur heard. Normal peripheral pulses. ABDOMEN: Soft, nontender, nondistended, normal active bowel sounds. EXTREMITIES: Normal range of motion. No edema. SKIN: Warm, dry, no rash. NEURO: No focal deficits. Alert and oriented x3. PSYCH: Normal mood and affect. Course Course Emergency Course: This is a 44 year old female who presented for evaluation of respiratory symptoms. Strep, COVID, flu were all negative. Chest x-ray is negative. Exam is consistent with viral URI. Increase hydration. OTC agents for symptom management. Will dc with prednisone. Follow up with primary provider. Go to the ER for worsening symptoms. Pt in agreement with plan of care. Level of Care: Express Care Visit Vital Signs Vital signs: Vital Signs Temperature 36.4 C L 06/13/24 15:15 Pulse Rate 114 H 06/13/24 15:15 Respiratory Rate 20 06/13/24 15:15 Blood Pressure 136/72 06/13/24 15:15 Pulse Oximetry 98 02/22/25 15:15 Oxygen Delivery Room Air 06/13/24 15:15 Temperature 36.4 C L 06/13/24 15:15 Pulse Rate 114 H 06/13/24 15:15 Respiratory Rate 20 06/13/24 15:15 Blood Pressure 136/72 06/13/24 15:15 Pulse Oximetry 98 06/13/24 15:15 Oxygen Delivery Room Air 06/13/24 15:15 Medical Decision Making Vital Signs Vital Signs: Vital Signs Temperature 36.4 C L 06/13/24 15:15 Pulse Rate 114 H 06/13/24 15:15 Respiratory Rate 20 06/13/24 15:15 Blood Pressure 136/72 06/13/24 15:15 Pulse Oximetry 98 06/13/24 15:15 Oxygen Delivery Room Air 06/13/24 15:15 Temperature 36.4 C L 06/13/24 15:15 Pulse Rate 114 H 06/13/24 15:15 Respiratory Rate 20 06/13/24 15:15 Blood Pressure 136/72 06/13/24 15:15 Pulse Oximetry 98 06/13/24 15:15 Oxygen Delivery Room Air 06/13/24 15:15 Lab Data Labs: Lab Results 06/13/24 Range/Units 15:24 POC Influenza A Ag Negative (Negative) POC Influenza B Ag Negative (Negative) POC SARS CoV-2 Ag Negative (Negative) POC Grp A Strep Screen Negative (Negative) Imaging Data Radiologist's impression: EXAMINATION: XR chest 2V DATE: 06/13/2024 16:09 INDICATION: Cough. TECHNIQUE: Frontal and lateral views of the chest were obtained. COMPARISON: None. FINDINGS: There is no pneumonia, pleural effusion, or pneumothorax. The heart size is normal. IMPRESSION: 1. No acute cardiopulmonary disease. Discharge Plan Discharge Clinical Impression: Upper respiratory infection, viral Patient Disposition: Home, Self-Care Condition: Stable Instructions: Antibiotic Form, Upper Respiratory Infection (DC), Viral Syndrome (ED) Patient Language: Guamanian Prescriptions: New prednisone 50 mg tablet 50 mg PO DAILY Qty: 5 0RF No Action Fish Oil Capsule PO carvedilol 25 mg tablet See Rx Instructions .ROUTE .COMPLEX Rx Instructions: as prescribed irbesartan 300 mg tablet 300 mg PO DAILY methimazole 5 mg tablet 5 mg PO DAILY Follow-up/Referrals: Anh,MD Vito [Primary Care Provider] - Time of Disposition: 16:31
== END 2024-06-13 16:40 | disposition home or self-care (01) ==
PROVIDERS: Emergency Provider Nurse Practitioner; PCP Internal Medicine
DX: J06.9 Acute upper respiratory infection, unspecified (principal); Z20.822 Contact with and (suspected) exposure to COVID-19; N18.2 Chronic kidney disease, stage 2 (mild); Q61.3 Polycystic kidney, unspecified
CPT/HCPCS: 71046; 87081; 87426; 87804; 87880; 99213; G0463

== ENCOUNTER 2024-08-08 18:53 | Emergency (ER) | payer OTHER, SELFPAY ==
--- NOTE | ~2024-08-08 | XR_ITS ---
XR shoulder LT min 2V Ordering provider: Jim Gerard MD History: . pain/ NO INJURY . Comparison: None. FINDINGS: BONES: No acute fracture or dislocation. JOINT SPACES: The acromioclavicular joint is normal. The glenohumeral joint is normal. SOFT TISSUES: Normal. IMPRESSION: No acute osseous abnormality left shoulder. Reviewed, dictated and finalized at location A.
--- OUTSIDE RECORDS SUMMARY | 2024-08-08 18:55 | XMS_ITS | Encounter Summary ---
Author Organization [facility] Address [address] [place] [address] Care Team Providers Care Apparel Sales Leader Name Role Phone Unavailable Primary Care Provider Unavailabl e Encounter Details Date Type Department Care Team (Latest Contact Info) Description 03/06/2006 Inpatient Historical HIS OB PREADMIT Rosa Reyes MD [address] [facility] [address] [place] [address] Abnormality in Heart Rate/Rhythm, Delivered (Primary Dx) Social History Tobacco Use Types Packs/Day Years Used Date Smoking Tobacco: Never Assessed Comments Unknown Sex and Gender Information Value Date Recorded Sex Assigned at Not on file Legal Sex Female 2:39 AM CLEANING TECHNICIAN Gender Identity Not on file Sexual Orientation Not on file documented as of this encounter Plan of Treatment Not on file documented as of this encounter Procedures Procedure Name Priority Date/Time Associated Diagnosis Comments CBC WITH DIFFERENTIAL Routine 03/08/2006 4:25 AM CLEANING TECHNICIAN CBC WITH DIFFERENTIAL Routine 03/08/2006 4:25 AM CLEANING TECHNICIAN CBC WITH DIFFERENTIAL Routine 03/06/2006 6:22 AM CLEANING TECHNICIAN CBC WITH DIFFERENTIAL Routine 03/06/2006 6:22 AM CLEANING TECHNICIAN documented in this encounter Results * (ABNORMAL) CBC WITH DIFFERENTIAL (03/08/2006 4:25 AM CLEANING TECHNICIAN) NEUTROPHILS 71(H) 45 - 70 % [...] 0.20 K/uL INTERFACE SYSTEM 03/08/2006 4:25 AM CLEANING TECHNICIAN Rosa Reyes MD HEMATOLOGY ORDERABLES Final R esult INTERFACE SYSTEM Refer to clinic/hospital department * (ABNORMAL) CBC WITH DIFFERENTIAL (03/08/2006 4:25 AM CLEANING TECHNICIAN) WBC 11.1(H) 4.0 - 9.8 K/uL [...] 12.4 fL INTERFACE SYSTEM 03/08/2006 4:25 AM CLEANING TECHNICIAN Rosa Reyes MD HEMATOLOGY ORDERABLES Final R esult INTERFACE SYSTEM Refer to clinic/hospital department * (ABNORMAL) CBC WITH DIFFERENTIAL (03/06/2006 6:22 AM CLEANING TECHNICIAN) NEUTROPHILS 72(H) 45 - 70 % [...] 0.20 K/uL INTERFACE SYSTEM 03/06/2006 6:22 AM CLEANING TECHNICIAN Rosa Reyes MD HEMATOLOGY ORDERABLES Final R esult Performing Organization Address City/[facility] de Phone Number INTERFACE SYSTEM Refer to clinic/hospital department * (ABNORMAL) CBC WITH DIFFERENTIAL (03/06/2006 6:22 AM CLEANING TECHNICIAN) WBC 9.6 4.0 - 9.8 K/uL [...] 12.4 fL INTERFACE SYSTEM 03/06/2006 6:22 AM CLEANING TECHNICIAN Rosa Reyes MD HEMATOLOGY ORDERABLES Final R esult Performing Organization Address City/[facility] de Phone Number INTERFACE SYSTEM Refer to clinic/hospital department documented in this encounter Visit Diagnoses Diagnosis Abnormality in heart rate/rhythm, delivered, with or without mention of antepartum condition- Primary documented in this encounter
--- OUTSIDE RECORDS SUMMARY | 2024-08-08 18:55 | XMS_ITS | Encounter Summary ---
Author Organization [facility] Healthcare Address [address] [place] [address] Care Team Providers Care Supervising Floorperson Name Role Phone Seferino Morton MD Unavailable [phone] Vito Kamara MD Primary Care Provider [phone] Encounter Details Date Type Department Care Team (Late st Contact Info) Description 07/17/2024 Results Follow-Up [facility] [address] [address] [place] [address] [address] Social History Tobacco Use Types Packs/Day Years [...] on file Legal Sex Female 2:34 AM TELEGRAPH OFFICE TELEPHONE CLERK Gender Identity Female 02/23/2020 2:45 PM TELEGRAPH OFFICE TELEPHONE CLERK Sexual Orientation Straight 02/23/2020 2: 45 PM TELEGRAPH OFFICE TELEPHONE CLERK documented as of this encounter Plan of Treatment Not on file documented as of this encounter Visit Diagnoses Not on filedocumented in this encounter Care Teams Supervising Floorperson Relationship Specialty Start Date End Date Vito Kamara MD [address] [place] [address] PCP - General Internal Medicine 07/09/19 Seferino Morton MD Consulting Physician Nephrology 07/09/19 documented as of this encounter
--- OUTSIDE RECORDS SUMMARY | 2024-08-08 18:55 | XMS_ITS | Clinical Summary ---
Author Organization [facility] Address [address] [place] [address] Phone Care Team Providers Care Coach Mechanic Name Role Phone Unavailable Primary Care Provider Unavailabl e Social History Tobacco Use Types Packs/Day Years Used Date Smoking Tobacco: Never Assessed Comments Unknown Sex and Gender Information Value Date Recorded Sex Assigned at Not on file Legal Sex Female 2:39 AM WOOD FILLER Gender Identity Not on file Sexual Orientation Not on file Plan of Treatment Health Maintenance Due Date Last Done Comments DTAP/TDAP/TD VACCINES (1 - Tdap) 2000 HEPATITIS B VACCINES (1 of 3 - 19+ 3-dose series) 2000 HPV/Cotest (21-29) 2002 CERVICAL CANCER SCREENING 2011 HPV/Cotest (30-65) 2011 PAP SMEAR 2011 BREAST CANCER SCREENING 2021 INFLUENZA VACCINE (#1) 2023 HPV VACCINES Aged Out No longer eligi ble based on patient's age to complete this topic
--- OUTSIDE RECORDS SUMMARY | 2024-08-08 18:55 | XMS_ITS | Encounter Summary ---
Author Organization [facility] Address [address] [place] [address] Care Team Providers Care Senior Logistics Manager Name Role Phone Unavailable Primary Care Provider Unavailabl e Encounter Details Date Type Department Care Team (Late st Contact Info) Description 01/22/2008 Outpatient Historical HIS LAB Rosa Reyes MD [address] [facility] [address] [place] [address] Missed Social History Tobacco Use Types Packs/Day Years Used Date Smoking Tobacco: Never Assessed Comments Unknown Sex and Gender Information Value Date Recorded Sex Assigned at Not on file Legal Sex Female 2:39 AM ENERGY SALES BROKER Gender Identity Not on file Sexual Orientation Not on file documented as of this encounter Plan of Treatment Not on file documented as of this encounter Procedures Procedure Name Priority Date/Time Associated Diagnosis Comments HCG QUANTITATIVE, BLOOD Routine 01/22/2008 3:53 PM CDT documented in this encounter Results * HCG QUANTITATIVE, BLOOD (01/22/2008 3:53 PM CDT) HCG QUANT, BLOOD <5 0 - 5 mIU/mL [facility] Comment: Result of 5 - 25 [...] - 01/22/2008 5:38 PM CDT fax results [phone] results faxed 01/22/08 5:38 PM dl us Rosa Reyes MD CHEMISTRY ORDERABLES Edited INTERFACE SYSTEM Refer to clinic/hospital department [facility] CLIA# [id number] [address] [place] [address] documented in this encounter Visit Diagnoses Diagnosis Missed documented in this encounter
--- OUTSIDE RECORDS SUMMARY | 2024-08-08 18:55 | XMS_ITS | Clinical Summary ---
Author Organization [facility] Address [address] [place] [id number] Care Team Providers Care Store Person Name Role Phone Seferino Morton MD Unavailable [phone] Vito Kamara MD Primary Care Provider [phone] Allergies Active Allergy Reactions Criticality Noted Date Comments Latex Other (See comments),Rash Medium 06/07/2015 Reaction: Break out Morphine Anaphylaxis,Palpitat ion s High 06/10/2023 Tolvaptan Fatigue Low 12/17/2022 Patient became violently ill with vomiting and diarrhea and the medication had to be stopped after 5 days of use Venom-Honey Bee Swelling Medium 06/07/2015 Medications levonorgestreL (Mirena) IUD 11/24/19 16 Active cephalexin (KEFLEX) 250 mg capsuleIndications: Urinary Tract/Genitourinary Infection Take 1 capsule (250 mg total) by mouth 3 (three) times a day 15 capsule 06/07/19 24 Active Additional Information Patient not taking.Reported on 05/26/2024 carvediloL (COREG) 25 mg tablet Take 1.5 tablets (37.5 mg total) by mouth 2 (two) times a day with meals 270 tablet 3 08/09/19 24 Active omega 3-juc-nel-fish oil 100-400-1,000 mg capsule Take 1,000 mg by mouth daily Active predniSONE (DELTASONE) 20 mg tablet 11/04/19 24 Active methIMAzole (TAPAZOLE) 5 mg tabletIndications:H yperthyroidism Take 1 tablet daily Saturday through Saturday and take 2 tablets on Sundays 40 tablet 6 11/24/19 24 Active irbesartan (AVAPRO) 300 mg tablet Take 1 tablet (300 mg total) by mouth nightly Patient needs appointment 90 tablet 05/12/19 25 025 Active traMADoL (ULTRAM) 50 mg tabletIndications:A cute costochondritis Take 1 tablet (50 mg total) by mouth every 6 (six) hours Take 500 mg of acetaminophen with each dose. Take with food. Collaborating physician Roman Rodriguez MD 20 tablet 08/01/[address] (PROTONIX) 40 mg EC tabletIndications:H eartburn Take 1 tablet (40 mg total) by mouth daily Take as directed to help control heartburn. Collaborating physician Roman Rodriguez MD 30 tablet 08/01/19 25 026 Active diclofenac sodium 3 % gel Apply 1 Application topically 2 (two) times a day Massage into area of pain twice daily as directed. Collaborating physician Roman Rodriguez MD 100 g 1 08/01/19 25 Active Active Problems Problem Noted Date Diagnosed Date Acute costochondritis 07/31/2024 Heartburn 07/31/2024 Morbid (severe) obesity due to excess calories 0 07/25/2023 Body mass index 40.0-44.9, adult ([facility]) 07/24 RAVIN (obstructive sleep apnea) 07/23/2023 Hyperlipidemia 07/23/2023 Hypertension 07/23/2023 Palpitation 07/23/2023 Hyperthyroidism 07/09/2019 Assessment & Plan (11/21/2023 1:37 PM CDT): Chronic, stable Update TFTs Continue tapazole. Assessment & Plan (05/16/2023 3:00 PM REMEDIATION CONSULTANT): Chronic, uncontrolled Will adjust dose of tapazole accordingly Will recheck labs in 3 months F/u in 6 m Assessment & Plan (08/30/2022 4:56 PM CDT): Chronic, uncontrolled Restart Tapazole 10 mg daily Recheck TFTs in 2 months Follow-up in 4 Assessment & Plan (02/24/2020 5:46 PM REMEDIATION CONSULTANT): Thyroid function tests requested. Will adjust dose [...] x2 Supervision of high risk in second tri mester 06/19/2015 Overview (10/26/2018): Overview: PNC: Dr. Jaycee Mayo Dating: L= 1st trimester O+ S/p flu vaccine GBS positive Headache disorder 12/02/2012 Cervico-occipital neuralgia 10/01/2012 Overview (07/27/2016): Occipital neuralgia Migraine 10/01/2012 Overview (07/27/2016): Chronic migraine Encounters Date Type Department Care Team Description 07/31/2024 3:57 PM CDT - 07/31/2024 5:18 PM CDT Emergency [facility] Emergency Department [address] [place] [address] Acute costochondritis (Primary Dx); Heartburn Discharge Disposition: Discharge to home or self care 07/31/2024 2:33 PM CDT - 07/31/2024 11:59 PM CDT Hospital Encounter [facility] Discharge Disposition: Discharge to home or self care 07/17/2024 Results Follow-Up [facility] [id number] [place] [address] [place] [phone] Edwin Larose MD 07/09/2024 10:53 AM CDT - 07/09/2024 11:59 PM CDT Hospital Encounter [facility] [address] [place] [address] Multinodular goiter Discharge Disposition: Discharge to home or self care 05/26/2024 2:10 PM REMEDIATION CONSULTANT Lab [id number] [place] [phone] Hyperthyroidism 05/26/2024 1:15 PM REMEDIATION CONSULTANT Office Visit [facility] [id number] [place] [address] [address], [place] [phone] Edwin Larose MD Hyperthyroidism (Primary Dx); Multinodular [...] making you feel afraid or unsafe? Denies 07/31/2024 Comments No Sex and Gender Information Value Date Recorded Sex Assigned at Not on file Legal Sex Female 2:34 AM REMEDIATION CONSULTANT Gender Identity Female 02/23/2020 2:45 PM REMEDIATION CONSULTANT Sexual Orientation Straight 02/23/2020 2: 45 PM REMEDIATION CONSULTANT Obstetrics History Last Filed Vital Signs Vital Sign Reading Time Taken Comments Blood Pressure 134/85 07/31/2024 5:00 PM CDT Pulse 91 07/31/2024 5:00 PM CDT Temperature 37.4 C (99.3 F) 07/31/2024 3:11 PM CDT Respiratory Rate 18 07/31/2024 3:11 PM CDT Oxygen Saturation 98% 07/31/2024 5:00 PM CDT Inhaled Oxygen Concentration - - Weight 128.4 kg (283 lb) 07/31/2024 3:11 PM CDT Height 170.2 cm (5' 7.01 ) 05/26/2024 1:16 PM CS T Body Mass Index 44.31 05/26/2024 1:16 PM REMEDIATION CONSULTANT Plan of Treatment Health Maintenance Due Date Last Done Comments Breast Cancer Screening-Mammogram 1981 Cervical Cancer Screening 1981 Hepatitis C Screening 1981 Varicella Vaccines (1 of 2 - 13+ 2-dose series) 1994 Hepatitis B Screening 1999 Regular Well Visit/Exam 18-64 1999 Pneumococcal vaccine <65 (1 of 2 - PCV) 2000 Influenza Vaccine (Season Ended) 2024 Depression Screening 05/26/2025 05/26/2024, 11/21/2023, 10/15/2019, Additional history exists DTaP/Tdap/Td Vaccine (3 - Td or Tdap) 10/15/2025 10/16/2015, 11/27/1994, 01/03/1994, Additional history exists HPV Vaccines Aged Out No longer eligi ble based on patient's age to complete this topic Procedures Procedure Name Priority Date/Time Associated Diagnosis Comments D-DIMER, QUANTITATIVE STAT 07/31/2024 4:19 PM CDT TROPONIN T HIGH-SENSITIVITY STAT 07/31/2024 4:19 PM CDT XR CHEST 1 VIEW ED 07/31/2024 3:53 PM CDT ECG 12-LEAD STAT 07/31/2024 3:13 PM CDT EGFR STAT 07/31/2024 3:13 PM CDT DIFFERENTIAL AUTO STAT 07/31/2024 3:1 3 PM CDT TROPONIN T HIGH-SENSITIVITY SERIES (BASELINE, 2HR, 4HR, 6HR) STAT 07/31/2024 3:13 PM CDT COMPREHENSIVE METABOLIC PANEL STAT 07/31/2024 3:13 PM CDT CBC WITH AUTO DIFFERENTIAL STAT 07/31/2024 3:13 PM CDT US THYROID Schedule Routine, Read Routine (OP Routine) 07/09/2024 11:40 AM CDT Multinodular goiter T4, FREE Routine 05/26/2024 2:23 PM REMEDIATION CONSULTANT Hyperthyroidism T3, FREE Routine 05/26/2024 2:23 PM REMEDIATION CONSULTANT Hyperthyroidism TSH Routine 05/26/2024 2:23 PM REMEDIATION CONSULTANT Hyperthyroidism from Last 3 Months Results * Troponin T high-sensitivity (07/31/2024 4:19 PM CDT) Pathologist [facility] Trop T hs <6 <=14 ng/L Comment: Interpretive Data For further hscTnT resources including the diagnostic algorithm and an aid in interpretation, copy and paste this link: https://nrl.testcatalog.org/show/hsTrop Current Interpretive Data last revised 2020. Blood 07/31/2024 4:19 PM CDT 07/31/2024 4:24 PM CDT us Vahe EDOUARD LAB BLOOD ORDERABLES Final R esult MELISSA ALMENDAREZ [place] [address] [facility] Department [place] [address] * D-dimer, quantitative (07/31/2024 4:19 PM CDT) Pathologist [facility] D-Dimer <215 <=499 ng/mL FEU MELISSA ALMENDAREZ ([place]) Comment: Interpretive data FDA approved the D-dimer, in conjunction with a low or moderate pretest probability score, to exclude venous thromboembolic events (VTE) (PE and DVT) in outpatients when the D-dimer result is < 500 ng/ml FEU. Evidence supports using an age-adjusted D-dimer cut-off for outpatients older than 50 (age x 10) to improve specificity without sacrificing sensitivity. Example: age 68, VTE cut-off 680 ng/ml FEU. References; Schouten HT et al. Brit Med J. 2013;346:f2492. Alonso et al. Annals Int Med. 2015;163:701-11. Current interpretive data was last revised on 2019. Blood 07/31/2024 4:19 PM CDT 07/31/2024 4:24 PM CDT Vahe EDOUARD LAB BLOOD ORDERABLES Final R esult MELISSA TANESHA ([place]) 1 [facility] [place] [address] * XR Chest 1 Vw Portable (if patient condition/safety warrant portable) (07/31/2024 3:53 PM CDT) Anatomical Region Laterality Modality Body, Chest N/A Computed Radiogr aphy 07/31/2024 4:21 PM CDT Narrative 07/31/2024 4:21 PM CDT EXAM DESCRIPTION: XR CHEST 1 VIEW REASON FOR STUDY: chest pain Sudden onset of Left Side Chest Pain Today. Pt reports increased SOB w/exertion. TECHNIQUE: Single frontal radiographic view(s) of the chest. COMPARISON: 08/06/2023 FINDINGS: The heart size is stable. The pulmonary vasculature and mediastinum are grossly stable. There is no definite evidence of a pneumothorax. There is no definite evidence of pleural effusion. There are mild patchy left infrahilar airspace opacities. The osseous structures are acutely grossly stable. IMPRESSION: Mild patchy left infrahilar airspace opacities, which may be related to subsegmental atelectasis/scarring versus developing airspace disease. THIS IS AN ELECTRONICALLY VERIFIED FINAL REPORT 07/31/2024 4:21 PM - Electronically signed by Werner Cope D.O. PS: PS Report ID: [id number] Reading Location: [id number] Procedure Note Werner Cope DO - 07/31/2024 EXAM DESCRIPTION: XR CHEST 1 VIEW REASON FOR STUDY: chest pain Sudden onset of Left Side Chest Pain Today. Pt reports increased SOB w/exertion. TECHNIQUE: Single frontal radiographic view(s) of the chest. COMPARISON: 08/06/2023 FINDINGS: The heart size is stable. The pulmonary vasculature and mediastinum are grossly stable. There is no definite evidence of a pneumothorax. Thereis no definite evidence of pleural effusion. There are mild patchy leftinfrahilar airspace opacities. The osseous structures are acutely grossly stable. IMPRESSION: Mild patchy left infrahilar airspace opacities, which may be related to subsegmental atelectasis/scarring versus developing airspace disease. THIS IS AN ELECTRONICALLY VERIFIED FINAL REPORT 07/31/2024 4:21 PM - Electronically signed by Werner Cope D.O. PS: PS Report ID: [id number] Reading Location: [id number] Emi Beth MD IMG XR PROCEDURES F inal Result * ECG 12 lead (07/31/2024 3:13 PM CDT) 07/31/2024 3:13 PM CDT Narrative [facility] - 07/31/2024 3:50 PM CDT Vent Rate: 92 bpm RR Interval: 646 msec LA Interval: 140 msec QRS Duration: 89 msec QT Interval: 337 msec QTC Interval: 387 msec P-R-T [place]: 59 - 6 - 19 degrees IMPRESSION: SINUS RHYTHM NORMAL ECG no change from prior EKG Electronically Signed By: Justin Jacome MD Emi Beth MD ECG ORDERABLES Fin al Result [facility] * Troponin T high-sensitivity series (baseline, 2hr, 4hr, 6hr) (07/31/2024 3:13 PM CDT) Trop T hs <6 <=14 ng/L Comment: Interpretive Data For further hscTnT resources including the diagnostic algorithm and an aid in interpretation, copy and paste this link: https://nrl.testcatalog.org/show/hsTrop Current Interpretive Data last revised 2020. Blood 07/31/2024 3:13 PM CDT 07/31/2024 3:18 PM CDT Emi Beth MD LAB BLOOD ORDERABLE S Final Result Performing Organization Address City/[facility]/ZIP Co de Phone Number [facility] [address] [place] [address] * eGFR (07/31/2024 3:13 PM CDT) eGFR >90 >=60 mL/min/1. 73 m2 Comment: Interpretive Data Reference Interval Normal >/= 90 mL/min/1.73m2 Mildly decreased* 60 - 89 mL/min/1.73m2 Mildly to moderately decreased 45 - 59 mL/min/1.73m2 Moderately to severely decreased 30 - 44 mL/min/1.73m2 Severely decreased 15 - 29 mL/min/1.73m2 Kidney Failure < 15 mL/min/1.73m2 *Relative to young adult level Estimated glomerular filtration rate is determined by the 2020 CKD-EPI equation recommended by the National Kidney Foundation (A Unifying Approach to GFR Estimation: Recommendations of the NKF-ASK Task Force on Reassessing the Inclusion of Race in Diagnosing Kidney Disease, JASN 2020). The CKD-EPI equation should not be used for patients with unstable renal function and has not been validated in children and those over 70. Current interpretive data was last reviewed 2021. Blood 07/31/2024 3:13 PM CDT 07/31/2024 3:18 PM CDT us Emi Beth MD LAB BLOOD ORDERABLE S Final Result [facility] ([place]) 1 [facility] [place] [address] * Differential, auto (07/31/2024 3:13 PM CDT) Neutrophil abs 5.86 1.50 - 6.50 K/cumm Imm gran abs 0.06 0.00 - 0.10 K/cumm [facility] ([place]) Lymphocyte abs 2.63 0.80 - 3.30 K/cumm [facility] ([place]) Monocyte abs 0.70 0.20 - 0.80 K/cumm [facility] ([place]) Eosinophil abs 0.50 0.00 - 0.50 K/cumm [facility] ([place]) Basophil abs 0.04 0.00 - 0.10 K/cumm [facility] ([place]) Neutrophil pct 59.8 % [facility] ([place]) Comment: Interpretive Data Percent cell count reference ranges are not reported, since discordance with absolute values may lead to misinterpretation of CBC data. Current Interpretive Data was last revised on 2017. Imm gran pct 0.6 % [facility] ([place]) Comment: Interpretive Data Percent cell count reference ranges are not reported, since discordance with absolute values may lead to misinterpretation of CBC data. Current Interpretive Data was last revised on 2017. Lymphocyte pct 26.9 % [facility] ([place]) Comment: Interpretive Data Percent cell count reference ranges are not reported, since discordance with absolute values may lead to misinterpretation of CBC data. Current Interpretive Data was last revised on 2017. Monocyte pct 7.2 % [facility] ([place]) Comment: Interpretive Data Percent cell count reference ranges are not reported, since discordance with absolute values may lead to misinterpretation of CBC data. Current Interpretive Data was last revised on 2017. Eosinophil pct 5.1 % [facility] ([place]) Comment: Interpretive Data Percent cell count reference ranges are not reported, since discordance with absolute values may lead to misinterpretation of CBC data. Current Interpretive Data was last revised on 2017. Basophil pct 0.4 % [facility] ([place]) Comment: Interpretive Data Percent cell count reference ranges are not reported, since discordance with absolute values may lead to misinterpretation of CBC data. Current Interpretive Data was last revised on 2017. Blood 07/31/2024 3:13 PM CDT 07/31/2024 3:18 PM CDT us Emi Beth MD LAB BLOOD ORDERABLE S Final Result [facility] ([place]) 1 [facility] [place] [address] * CBC with auto differential (07/31/2024 3:13 PM CDT) WBC 9.79 3.80 - 9.90 K/cumm Hgb 13.8 11.9 - 15.5 g/dL [facility] ([place]) Hct 39.8 35.6 - 45.5 % [facility] ([place]) Plt 263 150 - 400 K/cumm [facility] ([place]) MPV 9.3 9.1 - 12.3 fL [facility] ([place]) RBC 4.60 3.90 - 5.20 M/cumm [facility] ([place]) MCV 86.5 81.3 - 96.4 fL [facility] ([place]) MCH 30.0 27.1 - 33.3 pg [facility] ([place]) MCHC 34.7 32.3 - 35.7 g/dL [facility] ([place]) RDW CV 12.7 11.1 - 14.9 % [facility] ([place]) RDW SD 39.8 35.7 - 48.1 fL [facility] ([place]) NRBC abs 0.00 0.00 - 0.01 K/cumm [facility] ([place]) Blood Venous blood specimen / Unknown 07/31/2024 3:13 PM CDT 07/31/2024 3:18 PM CDT us Emi Beth MD LAB BLOOD ORDERABLE S Final Result [facility] ([place]) 1 [facility] [place] [address] * Comprehensive metabolic panel (07/31/2024 3:13 PM CDT) Sodium 138 135 - 145 mmol/L Potassium, pl 4.1 3.3 - 4.9 mmol/L [facility] ([place]) Chloride 102 97 - 110 mmol/L [facility] ([place]) CO2 24 22 - 32 mmol/L [facility] ([place]) Anion gap 13 2 - 15 mmol/L [facility] ([place]) BUN 11 6 - 25 mg/dL [facility] ([place]) Creatinine 0.73 0.60 - 1.10 mg/dL [facility] ([place]) Glucose 128 70 - 199 mg/dL [facility] ([place]) Comment: Interpretive Data Fasting glucose >/= 126 mg/dl is diagnostic for diabetes. Fasting is defined as no caloric intake for at least 8 hours. Fasting glucose between 100 mg/dl to 125 mg/dl is diagnostic of prediabetes. In a patient with classic symptoms of hyperglycemia or hyperglycemic crisis, a random glucose >/= 200 mg/dl is diagnostic for diabetes. In the absence of unequivocal hyperglycemia, results should be confirmed by repeat testing. The classification and Diagnosis of Diabetes Diabetes Care 202; 46: S19-S40. Current interpretive data was last revised 2022. Calcium 9.9 8.5 - 10.3 mg/dL [facility] ([place]) Bilirubin, total 0.4 0.1 - 1.2 mg/dL [facility] ([place]) Protein, pl 7.2 6.5 - 8.5 g/dL [facility] ([place]) Albumin 4.0 3.5 - 5.0 g/dL [facility] ([place]) Alk phos 105 40 - 130 Units/L [facility] ([place]) ALT 19 7 - 45 Units/L [facility] ([place]) AST 14 10 - 45 Units/L [facility] ([place]) Comment: Hemolysis present. Results may be affected. Slightly Hemolyzed Specimen Blood 07/31/2024 3:13 PM CDT 07/31/2024 3:18 PM CDT us Emi Beth MD LAB BLOOD ORDERABLE S Final Result MELISSA ALMENDAREZ ([place]) 1 [facility] [place] [address] * US Thyroid (07/09/2024 11:40 AM CDT) Anatomical Region Laterality Modality Head and Neck N/A Ultrasound 07/14/2024 8:08 AM CDT Narrative 07/14/2024 8:17 AM CDT EXAM DESCRIPTION: US THYROID REASON FOR STUDY: Multinodular goiter, for follow-up. TECHNIQUE: Ultrasound of the thyroid was performed with grayscale and color doppler. COMPARISON: 11/24/2018. FINDINGS: RIGHT: The right thyroid lobe measures 6.7 x 2.9 x 3.0 cm. Right thyroid lobe is heterogeneous. Nodule 1: In the superior pole right thyroid lobe there is a hypoechoic solid nodule with no microcalcifications TI-RADS 4 measuring 1.4 x 1.0 x 0.8 cm, this nodule was not specifically depicted on the prior study. Nodule 2: There is a dominant solid slightly hyperechoic mid right thyroid nodule with a peripheral hypoechoic halo suggesting follicular histology, this nodule is wider than tall, TI-RADS 3 measuring 3.4 x 2.7 x 2.6 cm, previously 3.3 x 2.6 x 2.4 cm. Nodule 3: More posteriorly there is an isoechoic nodule TI-RADS 3 measuring 1.7 x 1.6 x 1.3 cm, previously this was measured using a slightly different technique but was similar in size 1.5 x 1.4 x 1.2 cm. LEFT: The left thyroid lobe measures 5.3 x 1.7 x 2.3 cm. Left thyroid lobe is heterogeneous. Nodule 4: In the superior pole left thyroid lobe hypoechoic solid nodule TI-RADS 4 measuring 1.0 x 0.8 x 0.7 cm, this was not specifically depicted on the prior study. ISTHMUS: The isthmus measures 1.1 cm in AP dimension. Nodule 5: There is an isthmic nodule which is isoechoic and appears solid 2.4 x 2.6 x 1.2 cm TI-RADS 3, previously this was 2.7 x 2.2 x 0.9 cm. VASCULARITY: Normal. OTHER: No other significant finding. IMPRESSION: Heterogeneous thyroid with multiple nodules as described above. Dominant right thyroid nodule TI-RADS 3 measuring 3.4 cm meets criteria for FNA if not previously performed, but is stable in size from November 2018. Other nodules meet criteria for 1 year ultrasound follow-up. REFERENCE: According to the ACR Thyroid Imaging, Reporting and Data System (TI-RADS): White Paper of the ACR TI-RADS Committee Aug, 2016 recommendations regarding the management of thyroid nodules are as follows: 1. TI-RADS 1: Risk of malignancy <2%, no FNA or follow up required. 2. TI-RADS 2: Risk of malignancy <2%, no FNA or follow up required. 3. TI-RADS 3: Risk of malignancy 2%-5%. Nodules 1.5 cm or greater follow up at 1, 3 and 5 years recommended, for nodules 2.5 cm or greater FNA recommended. 4. TI-RADS 4: Risk of malignancy 5%-20% Nodules 1.0 cm or greater follow up at 1, 2, 3 and 5 years recommended, for nodules 1.5 cm or greater FNA recommended 5. TI-RADS 5: Risk of malignancy >20%. Nodules 0.5 cm or greater annual follow up for 5 years recommended, for nodules 1.0 cm or greater FNA recommended. The ACT TI-RADS committee recommends targeting no more than two nodules for FNA. If three or more nodules meet criteria for FNA, the two with the most suspicious appearance based on ACR TI-RADS points should be sampled. THIS IS AN ELECTRONICALLY VERIFIED FINAL REPORT 07/14/2024 8:17 AM - Electronically signed by Telly Victoria M.D. CH: JANY Report ID: [id number] Reading Location: [id number] Procedure Note Telly Victoria Jr., MD - 07/14/2024 EXAM DESCRIPTION: US THYROID REASON FOR STUDY: Multinodular goiter, for follow-up. TECHNIQUE: Ultrasound of the thyroid was performed with grayscale andcolor doppler. COMPARISON: 11/24/2018. FINDINGS: RIGHT: The right thyroid lobe measures 6.7 x 2.9 x 3.0 cm. Rightthyroid lobe is heterogeneous. Nodule 1: In the superior pole right thyroid lobe there is a hypoechoicsolid nodule with no microcalcifications TI-RADS 4 measuring 1.4 x 1.0 x 0.8 cm, this nodule was not specifically depicted on the prior study. Nodule 2: There is a dominant solid slightly hyperechoic mid right thyroid nodule with a peripheral hypoechoic halo suggesting follicular histology,this nodule is wider than tall, TI-RADS 3 measuring 3.4 x 2.7 x 2.6 cm,previously 3.3 x 2.6 x 2.4 cm. Nodule 3: More posteriorly there is an isoechoic nodule TI-RADS 3measuring 1.7 x 1.6 x 1.3 cm, previously this was measured using a slightlydifferent technique but was similar in size 1.5 x 1.4 x 1.2 cm. LEFT: The left thyroid lobe measures 5.3 x 1.7 x 2.3 cm. Left thyroidlobe is heterogeneous. Nodule 4: In the superior pole left thyroid lobe hypoechoic solid nodule TI-RADS 4 measuring 1.0 x 0.8 x 0.7 cm, this was not specifically depictedon the prior study. ISTHMUS: The isthmus measures 1.1 cm in AP dimension. Nodule 5: There is an isthmic nodule which is isoechoic and appears solid2.4 x 2.6 x 1.2 cm TI-RADS 3, previously this was 2.7 x 2.2 x 0.9 cm. VASCULARITY: Normal. OTHER: No other significant finding. IMPRESSION: Heterogeneous thyroid with multiple nodules as described above. Dominant right thyroid nodule TI-RADS 3 measuring 3.4 cm meets criteriafor FNA if not previously performed, but is stable in size from November 2018. Other nodules meet criteria for 1 year ultrasound follow-up. REFERENCE: According to the ACR Thyroid Imaging, Reporting and Data System (TI-RADS): White Paper of the ACR TI-RADS Committee Aug, 2016recommendations regarding the management of thyroid nodules are as follows: 1. TI-RADS 1: Risk of malignancy <2%, no FNA or follow up required. 2. TI-RADS 2: Risk of malignancy <2%, no FNA or follow up required. 3. TI-RADS 3: Risk of malignancy 2%-5%. Nodules 1.5 cm or greater followup at 1, 3 and 5 years recommended, for nodules 2.5 cm or greater FNArecommended. 4. TI-RADS 4: Risk of malignancy 5%-20% Nodules 1.0 cm or greater followup at 1, 2, 3 and 5 years recommended, for nodules 1.5 cm or greater FNA recommended 5. TI-RADS 5: Risk of malignancy >20%. Nodules 0.5 cm or greater annual follow up for 5 years recommended, for nodules 1.0 cm or greater FNA recommended. The ACT TI-RADS committee recommends targeting no more than two nodulesfor FNA. If three or more nodules meet criteria for FNA, the two with themost suspicious appearance based on ACR TI-RADS points should be sampled. THIS IS AN ELECTRONICALLY VERIFIED FINAL REPORT 07/14/2024 8:17 AM - Electronically signed by Telly Victoria M.D. CH: JANY Report ID: [id number] Reading Location: [place] [address] Edwin Larose MD IMG US PROCEDURES Final Result * (ABNORMAL) T3, free (05/26/2024 2:23 PM REMEDIATION CONSULTANT) Free T3 4.8(H) 2.0 - 4.4 pg/mL Blood 05/26/2024 2:23 PM REMEDIATION CONSULTANT 05/26/2024 5:57 PM REMEDIATION CONSULTANT Edwin Larose MD LAB BLOOD ORDERABLES Final Resul t MELISSA CARMICHAEL [address] Department [place] [address] * TSH (05/26/2024 2:23 PM REMEDIATION CONSULTANT) Thyroid Stimulating Hormone 0.50 0.30 - 4.20 mcIUnit/mL Blood 05/26/2024 2:23 PM REMEDIATION CONSULTANT 05/26/2024 5:57 PM REMEDIATION CONSULTANT Edwin Larose MD LAB BLOOD ORDERABLES Final Resul t Performing Organization Address City/State/[facility] Co de Phone Number MELISSA JANY [address] [address] [place] [address] * T4, free (05/26/2024 2:23 PM REMEDIATION CONSULTANT) Free T4 1.19 0.90 - 1.70 ng/dL Blood 05/26/2024 2:23 PM REMEDIATION CONSULTANT 05/26/2024 5:57 PM REMEDIATION CONSULTANT Edwin Larose MD LAB BLOOD ORDERABLES Final Resul t Performing Organization Address [facility] Co de Phone Number MELISSA CARMICHAEL [address] [address] [facility] [place] [address] from Last 3 Months Insurance [facility] Care Teams Store Person Relationship Specialty Start Date End Date Vito Kamara MD [address] [place] [address] PCP - General Internal Medicine 07/09/19 Seferino Morton MD Consulting Physician Nephrology 07/09/19
--- OUTSIDE RECORDS SUMMARY | 2024-08-08 18:55 | XMS_ITS | Clinical Summary ---
Author Organization [facility] Address [address] [place] [address] Phone Care Team Providers Care Computer Teacher Name Role Phone Phan Calderón MD Unavailable [phone] Vito Kamara MD Primary Care Provider [phone] Allergies Active Allergy Reactions Criticality Noted Date [...] now to know Department associated with goal: [facility] Steps to achieve goal: [...] making a change Department associated with goal: [facility] Steps to achieve goal: will identify at least two personal goals per week. will identify and begin implementing at least two action steps to work toward personal goals. will identify and begin implementing at least one skill/activity/habit to improve motivation Insurance MEDICAID [facility] PLAN Advance Directives * Full Code (Latest [...] measures to stabilize the patient. Care Teams Computer Teacher Relationship Specialty Start Date End Date Vito Kamara MD [address] [place] [address] PCP - General Internal Medicine 08/05/18 Phan Calderón MD [address] [place] [address] Neurology 12/12/12
--- OUTSIDE RECORDS SUMMARY | 2024-08-08 18:55 | XMS_ITS | Encounter Summary ---
Author Organization [employer] Address [address] [place] [address] Care Team Providers Care Boat Laborer Name Role Phone Unavailable Primary Care Provider Unavailabl e Encounter Details Date Type Department Care Team (Latest Contact Info) Description 09/30/2005 Outpatient Historical HIS PATIENT IN A BED ReyesRosa MD [address] [facility] [address] [place] [address] Other Current Maternal Conditions Classifiable Elsewhere, Antepartum (Primary Dx) Social History Tobacco Use Types Packs/Day Years Used Date Smoking Tobacco: Never Assessed Comments Unknown Sex and Gender Information Value Date Recorded Sex Assigned at Not on file Legal Sex Female 2:39 AM TRANSCRIBER Gender Identity Not on file Sexual Orientation Not on file documented as of this encounter Plan of Treatment Not on file documented as of this encounter Visit Diagnoses Diagnosis Other current maternal conditions classifiable elsewhere, antepartum- Primary documented in this encounter
--- OUTSIDE RECORDS SUMMARY | 2024-08-08 18:55 | XMS_ITS | Encounter Summary ---
Author Organization [employer] Address 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
--- OUTSIDE RECORDS SUMMARY | 2024-08-08 18:55 | XMS_ITS | Encounter Summary ---
Author Organization [employer] Address [address] [place] [address] Care Team Providers Care Land Acquisition Manager Name Role Phone Unavailable Primary Care Provider Unavailabl e Encounter Details Date Type Department Care Team (Late st Contact Info) Description 06/02/2007 Outpatient Historical [facility] [place], Authorized P NO ADDRESS ON FILE Elias Green MD [address] [place] [address] Social History Tobacco Use Types Packs/Day Years Used Date Smoking Tobacco: Never Assessed Comments Unknown Sex and Gender Information Value Date Recorded Sex Assigned at Not on file Legal Sex Female 2:39 AM REGIONAL WILDLIFE AGENT Gender Identity Not on file Sexual Orientation Not on file documented as of this encounter Plan of Treatment Not on file documented as of this encounter Procedures Procedure Name Priority Date/Time Associated Diagnosis Comments CT HEAD C-SPINE MAXILLOFACIAL WO CON Routine 06/02/2007 5:20 PM REGIONAL WILDLIFE AGENT CT LUMBAR SPINE WO CONTRAST Routine 06/02/2007 5:20 PM REGIONAL WILDLIFE AGENT CT THORACIC SPINE WO CONTRAST Routine 06/02/2007 5:20 PM REGIONAL WILDLIFE AGENT CT CHEST ABDOMEN PELVIS W CONT Routine 06/02/2007 5:20 PM REGIONAL WILDLIFE AGENT HCG QUANTITATIVE, BLOOD Routine 06/02/2007 3:41 PM REGIONAL WILDLIFE AGENT CREATININE Routine 06/02/2007 3:41 PM REGIONAL WILDLIFE AGENT documented in this encounter Results * CT LUMBAR SPINE WO CONTRAST (06/02/2007 5:20 PM REGIONAL WILDLIFE AGENT) Anatomical Region Laterality Modality Spine Other 06/02/2007 5:20 PM REGIONAL WILDLIFE AGENT Narrative 06/02/2007 7:00 PM REGIONAL WILDLIFE AGENT [place] [address] [place], [place] [address] Admit Date: 06/02/2007 ARLETH FUNEZ Sex: F Admit Prov: ER, AUTHORIZED P Date: 1980 Primary Care Prov: [id number] [facility] CMRN: [id number] [facility] SSN: [address] [place] [address] IMAGING SERVICES Ordering Prov: N/A Accession Number: [id number] Interpretation CT lumbar spine without contrast. 06/02/2007 [...] AMK Procedure Note Phan Torres - 06/02/2007 [place] [address] [place], [place] [address] Admit Date: 06/02/2007 ARLETH FUNEZ Sex: F Admit Prov: ER, AUTHORIZED P Date:1980 Primary Care Prov: [id number] [facility] CMRN: [id number] Room: [facility] SSN: [address] [place] [address] IMAGING SERVICES Ordering Prov: N/A Interpretation CT [...] THORACIC SPINE WO CONTRAST (06/02/2007 5:20 PM REGIONAL WILDLIFE AGENT) Anatomical Region Laterality Modality Spine Other 06/02/2007 5:20 PM REGIONAL WILDLIFE AGENT Narrative 06/02/2007 7:00 PM REGIONAL WILDLIFE AGENT [facility] [address] [place], [place] [address] Admit Date: 06/02/2007 DEE DEEARLETH Sex: F Admit Prov: ER, AUTHORIZED P Date: 1980 Primary Care Prov: [id number] -[facility] CMRN: [id number] Room: [facility] SSN: [id number] IMAGING SERVICES Ordering Prov: N/A Accession Number: [id number] Interpretation Exam: CT thoracic spine without contrast. [...] AMK Procedure Note Phan Torres - 06/02/2007 [facility] [address] [place], [place] [address] Admit Date: 06/02/2007 ARLETH FUNEZ Sex: F Admit Prov: ER, AUTHORIZED P Date:1980 Primary Care Prov: [id number] [facility] CMRN: [id number] [facility] [address] [place] [address] IMAGING SERVICES Ordering Prov: N/A Interpretation Exam: [...] C-SPINE MAXILLOFACIAL WO CON (06/02/2007 5:20 PM REGIONAL WILDLIFE AGENT) Anatomical Region Laterality Modality Other 06/02/2007 5:20 PM REGIONAL WILDLIFE AGENT Narrative 06/02/2007 7:00 PM REGIONAL WILDLIFE AGENT [facility] [address] [place], [place] [address] Admit Date: 06/02/2007 ARLETH FUNEZ Sex: F Admit Prov: ER, AUTHORIZED P Date: 1980 Primary Care Prov: [id number] [facility] CMRN: [id number] Room: -A N: [address] [place] [address] IMAGING SERVICES Ordering Prov: N/A Accession Number: [id number] Interpretation Exam: CT of the head, cervical [...] AMK Procedure Note Phan Torres - 06/02/2007 [facility] [address] [place], [place] [address] Admit Date: 06/02/2007 ARLETH FUNEZ Sex: F Admit Prov: AMY DALTON Date:1980 Primary Care Prov: [id number] -[facility] CMRN: [id number] [facility] SSN: [id number] IMAGING SERVICES Ordering Prov: N/A Interpretation Exam: [...] ABDOMEN PELVIS W CONT (06/02/2007 5:20 PM REGIONAL WILDLIFE AGENT) Anatomical Region Laterality Modality Chest Other 06/02/2007 5:20 PM REGIONAL WILDLIFE AGENT Narrative 06/02/2007 7:00 PM REGIONAL WILDLIFE AGENT [facility] [address] [facility] [place], [place] [address] Admit Date: 06/02/2007 ARLETH FUNEZ Sex: F Admit Prov: ER, AUTHORIZED P Date: 1980 [facility] [id number] [facility] C[facility]: [id number] [facility] SSN: [id number] IMAGING SERVICES Ordering Prov: N/A Accession Number: [id number] Interpretation Exam: CT of the chest, abdomen [...] AMK Procedure Note Phan Torres - 06/02/2007 [facility] [address] [place], [place] [address] Admit Date: 06/02/2007 ARLETH FUNEZ Sex: F Admit Prov: ER, AUTHORIZED P Date:1980 Primary Care Prov: [id number] -[facility], [facility] CMRN: [id number] Room: ER-A SSN: [id number] IMAGING SERVICES Ordering Prov: N/A Interpretation Exam: [...] BETA HCG QUANTITATIVE, BLOOD (06/02/2007 3:41 PM REGIONAL WILDLIFE AGENT) HCG QUANT, BLOOD <5 0 - 5 [...] with other clinical evidence. 06/02/2007 3:41 PM REGIONAL WILDLIFE AGENT Elias Green MD CHEMISTRY ORDERABLES [facility] Fadia marmolejo INTERFACE SYSTEM Refer to clinic/hospital department * CREATININE (06/02/2007 3:41 PM REGIONAL WILDLIFE AGENT) CREATININE 0.56 0.51 - 0.95 mg/dL INTERFACE SYSTEM GFR, >60 >=60 mL/min/1.7 sq meter INTERFACE SYSTEM GFR >60 >=60 mL/min/1.7 sq meter INTERFACE SYSTEM Comment: Estimated GFR rate interpretative information for both Americans and non- Americans is available on the [facility] Intranet at: [email or web address] Select: Lab Policies and Procedures Select: Reference Ranges - GFR 06/02/2007 3:41 PM REGIONAL WILDLIFE AGENT Elias Green MD CHEMISTRY ORDERABLES Final Re sult INTERFACE SYSTEM Refer to clinic/hospital department documented in this encounter Visit Diagnoses Not on filedocumented in this encounter
--- OUTSIDE RECORDS SUMMARY | 2024-08-08 18:55 | XMS_ITS | Encounter Summary ---
Author Organization [employer] Address [address] [place] [address] Care Team Providers Care Corporate Law Specialist Name Role Phone Unavailable Primary Care Provider Unavailabl e Encounter Details Date Type Department Care Team (Latest Contact Info) Description 02/24/2006 Outpatient Historical HIS OB P[facility]MIT Haris Whiting MD [address] [place] [address] Rosa Reyes MD [address] [place], [place] [id number] Other Current Maternal Conditions Classifiable Elsewhere, Antepartum (Primary Dx) Social History Tobacco Use Types Packs/Day Years Used Date Smoking Tobacco: Never Assessed Comments Unknown Sex and Gender Information Value Date Recorded Sex Assigned at Not on file Legal Sex Female 2:39 AM CONTRACTS DIRECTOR Gender Identity Not on file Sexual Orientation Not on file documented as of this encounter Plan of Treatment Not on file documented as of this encounter Procedures Procedure Name Priority Date/Time Associated Diagnosis Comments CBC WITH DIFFERENTIAL Routine 02/24/2006 3:00 PM CONTRACTS DIRECTOR CBC WITH DIFFERENTIAL Routine 02/24/2006 3:00 PM CONTRACTS DIRECTOR URINALYSIS W/REFLEX MICROSCOPIC Routine 02/24/2006 2:56 PM CONTRACTS DIRECTOR documented in this encounter Results * (ABNORMAL) CBC WITH DIFFERENTIAL (02/24/2006 3:00 PM CONTRACTS DIRECTOR) NEUTROPHILS 76(H) 45 - 70 % INTERFAC [...] 0.20 K/uL INTERFACE SYSTEM 02/24/2006 3:00 PM CONTRACTS DIRECTOR Rosa Reyes MD HEMATOLOGY ORDERABLES Final R esult Performing Organization Address [facility] Phone Number INTERFACE SYSTEM Refer to clinic/hospital department * (ABNORMAL) CBC WITH DIFFERENTIAL (02/24/2006 3:00 PM CONTRACTS DIRECTOR) WBC 9.9(H) 4.0 - 9.8 K/uL INTERFACE [...] 12.4 fL INTERFACE SYSTEM 02/24/2006 3:00 PM CONTRACTS DIRECTOR Rosa Reyes MD HEMATOLOGY ORDERABLES Final R esult Performing Organization Address [facility] de Phone Number INTERFACE SYSTEM Refer to clinic/hospital department * URINALYSIS (02/24/2006 2:56 PM CONTRACTS DIRECTOR) COLOR UA Yellow INTERFACE SYSTEM CLARITY UA [...] Negative Negative INTERFACE SYSTEM 02/24/2006 2:56 PM CONTRACTS DIRECTOR Rosa Reyes MD URINE ORDERABLES Final Result INTERFACE SYSTEM Refer to clinic/hospital department documented in this encounter Visit Diagnoses Diagnosis Other current maternal conditions classifiable elsewhere, antepartum- Primary documented in this encounter
--- OUTSIDE RECORDS SUMMARY | 2024-08-08 18:55 | XMS_ITS | Encounter Summary ---
Author Organization [employer] Address 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
--- OUTSIDE RECORDS SUMMARY | 2024-08-08 18:55 | XMS_ITS | Encounter Summary ---
Author Organization [employer] Address [address] [place] [address] Care Team Providers Care Paint Spraying Machine Operator Helper Name Role Phone Unavailable Primary Care Provider Unavailabl e Encounter Details Date Type Department Care Team (Late st Contact Info) Description 01/09/2008 Outpatient Historical HIS LAB Rosa Reyes MD [address] [facility] [address] [place] [address] Irregular Menstrual Cycle Social History Tobacco Use Types Packs/Day Years Used Date Smoking Tobacco: Never Assessed Comments Unknown Sex and Gender Information Value Date Recorded Sex Assigned at Not on file Legal Sex Female 2:39 AM RF MICROWAVE ENGINEER Gender Identity Not on file Sexual Orientation [...] QUANT, BLOOD 140(H) 0 - 5 mIU/mL [facility] Comment: Result of 5 - 25 [...] - 01/12/2008 10:40 AM CDT faxed to [phone] 01/12/08 10:40 AM ve Rosa Reyes MD CHEMISTRY ORDERABLES Edited INTERFACE SYSTEM Refer to clinic/hospital department [facility] CLIA# [id number] [address] [place] [address] * PROGESTERONE (01/09/2008 4:20 PM CDT) PROGESTERONE 0.8 ng/mL [facility] Comment: Progesterone Reference Range: Female: Normally Menstruating Female Follicular Phase 0.2 - 1.5 ng/mL Ovulation Phase 0.8 - 3.0 ng/mL Luteal Phase 1.7 - 27.0 ng/mL Postmenopausal 0.1 - 0.8 ng/mL No Pediatric Reference Range Available. Blood specimen (specimen) 01/09/2008 4:20 PM CDT 01/09/2008 4:39 PM CDT us Rosa Reyes MD CHEMISTRY ORDERABLES Final Re sult INTERFACE SYSTEM Refer to clinic/hospital department [facility] CLIA# [id number] [address] [place] [address] documented in this encounter Visit Diagnoses Diagnosis Irregular menstrual cycle documented in this encounter
--- OUTSIDE RECORDS SUMMARY | 2024-08-08 18:55 | XMS_ITS | Encounter Summary ---
Author Organization [employer] Address [address] [place] [address] Care Team Providers Care Textile Supervisor Name Role Phone Unavailable Primary Care Provider Unavailabl e Encounter Details Date Type Department Care Team (Late st Contact Info) Description 04/08/1998 Outpatient Historical HIS EMERGENCY ROOM Justo Peace MD [address] [facility] [place] [address] Er, Authorized P NO ADDRESS ON FILE Contusion of abdominal wall (Primary Dx) Social History Tobacco Use Types Packs/Day Years Used Date Smoking Tobacco: Never Assessed Comments Unknown Sex and Gender Information Value Date Recorded Sex Assigned at Not on file Legal Sex Female 2:39 AM MELTER CLERK Gender Identity Not on file Sexual Orientation Not on file documented as of this encounter Plan of Treatment Not on file documented as of this encounter Visit Diagnoses Diagnosis Contusion of abdominal wall- Primary documented in this encounter
--- OUTSIDE RECORDS SUMMARY | 2024-08-08 18:55 | XMS_ITS | Encounter Summary ---
Author Organization [employer] Address [address] [place] [address] Care Team Providers Care Recycling Crew Supervisor Name Role Phone Unavailable Primary Care Provider Unavailabl e Encounter Details Date Type Department Care Team (Late st Contact Info) Description 08/06/2005 Outpatient Historical HIS EMERGENCY ROOM Taj Argueta MD [address] [place] [address] Er, Authorized P NO ADDRESS ON FILE Unspecified Conjunctivitis (Primary Dx) Social History Tobacco Use Types Packs/Day Years Used Date Smoking Tobacco: Never Assessed Comments Unknown Sex and Gender Information Value Date Recorded Sex Assigned at Not on file Legal Sex Female 2:39 AM BENEFITS ANALYST Gender Identity Not on file Sexual Orientation Not on file documented as of this encounter Plan of Treatment Not on file documented as of this encounter Visit Diagnoses Diagnosis Conjunctivitis unspecified- Primary Conjunctivitis, unspecified documented in this encounter
--- OUTSIDE RECORDS SUMMARY | 2024-08-08 18:56 | XMS_ITS | Clinical Summary ---
Author Organization [facility] Address [address] [address] Care Team Providers Care Cattle Killer Name Role Phone Vito Kamara MD Primary Care Provider [phone] Allergies Active Allergy Reactions Criticality Noted Date [...] hypertension 12/29/2018 Low back pain 12/29/2018 Immunizations Immunization Administration Dates Next Due Tdap 10/16/2015 Family [...] Description 08/11/2024 9:45 AM CDT Office Visit [facility] Mauris[facility]. [address] [facility] [place] [address] Seferino Morton MD [address] [place] [id number] Health Maintenance Due Date Last Done Comments Hepatitis B Vaccine (1 of 3 - 19+ 3-dose series) 03/11 Pneumococcal Vaccine: Peds ( 0 to 5 Years) and At-Risk Patients (6 to 49 Years) (1 of 2 - PCV) 2000 Influenza Vaccine (Season Ended) 2024 Insurance [facility] Care Teams Cattle Killer Relationship Specialty Start Date End Date Vito Kamara MD [address] [place] [address] PCP - General Internal Medicine 11/20/18
--- OUTSIDE RECORDS SUMMARY | 2024-08-08 18:56 | XMS_ITS | Referral Summary ---
Author Organization [facility] Address [address] [place] [address] Care Team Providers Care Cement Side Laster Name Role Phone Seferino Morton MD Unavailable [phone] Vito Kamara MD Primary Care Provider [phone] Encounters Date Type Department Care Team Description 07/31/2024 2:33 PM CDT - 07/31/2024 11:59 PM CDT Hospital Encounter [facility] Discharge Disposition: Discharge to home or self care 07/31/2024 3:57 PM CDT - 07/31/2024 5:18 PM CDT Emergency [facility] Emergency Department [address] [place] [address] Acute costochondritis (Primary Dx); Heartburn Discharge Disposition: Discharge to home or self care 07/17/2024 Results Follow-Up [facility] [address] [address] Edwin Larose MD 07/09/2024 10:53 AM CDT - 07/09/2024 11:59 PM CDT Hospital Encounter [facility] [address] [place] [address] Multinodular goiter Discharge Disposition: Discharge to home or self care 05/26/2024 2:10 PM PERSONNEL GENERALIST MANAGER Lab [address] [address] Hyperthyroidism 05/26/2024 1:15 PM PERSONNEL GENERALIST MANAGER Office Visit [facility] [address] [address] Edwin Larose MD Hyperthyroidism (Primary Dx); [...] 270 tablet 3 08/09/19 24 Active omega 6-thh-bfr-fish oil 100-400-1,000 mg capsule Take 1,000 mg [...] Roman Rodriguez MD 100 g 1 08/01/19 Active Active Problems Problem Noted Date Diagnosed Date Acute costochondritis 07/31/2024 Heartburn 07/31/2024 Morbid (severe) obesity due to excess calories 0 07/25/2023 Body mass index 40.0-44.9, adult (CMS/HCC) 07/24 RAVIN (obstructive sleep apnea) 07/23/2023 Hyperlipidemia 07/23/2023 Hypertension 07/23/2023 Palpitation 07/23/2023 Hyperthyroidism 07/09/2019 Assessment & Plan (11/21/2023 1:37 PM CDT): Chronic, stable Update TFTs Continue tapazole. Assessment & Plan (05/16/2023 3:00 PM PERSONNEL GENERALIST MANAGER): Chronic, uncontrolled Will adjust dose of tapazole accordingly Will recheck labs in 3 months F/u in 6 m Assessment & Plan (08/30/2022 4:56 PM CDT): Chronic, uncontrolled Restart Tapazole 10 mg daily Recheck TFTs in 2 months Follow-up in 4 Assessment & Plan (02/24/2020 5:46 PM PERSONNEL GENERALIST MANAGER): Thyroid function tests requested. Will adjust dose [...] on file Legal Sex Female 2:34 AM PERSONNEL GENERALIST MANAGER Gender Identity Female 02/23/2020 2:45 PM PERSONNEL GENERALIST MANAGER Sexual Orientation Straight 02/23/2020 2: 45 PM PERSONNEL GENERALIST MANAGER Last Filed Vital Signs Vital Sign Reading [...] Body Mass Index 44.31 05/26/2024 1:16 PM PERSONNEL GENERALIST MANAGER Plan of Treatment Not on file Procedures [...] AUTO DIFFERENTIAL STAT 07/31/2024 3:13 PM CDT THYROID Schedule Routine, Read Routine (OP Routine) 07/09/2024 11:40 AM CDT Multinodular goiter T4, FREE Routine 05/26/2024 2:23 PM PERSONNEL GENERALIST MANAGER Hyperthyroidism T3, FREE Routine 05/26/2024 2:23 PM PERSONNEL GENERALIST MANAGER Hyperthyroidism TSH Routine 05/26/2024 2:23 PM PERSONNEL GENERALIST MANAGER Hyperthyroidism from Last 3 Months Results * Troponin T high-sensitivity (07/31/2024 4:19 PM CDT) Trop T hs <6 <=14 ng/L Comment: Interpretive Data For further hscTnT resources including the diagnostic algorithm and an aid in interpretation, copy and paste this link: https://nrl.testcatalog.org/show/hsTrop Current Interpretive Data last revised 2020. Blood 07/31/2024 4:19 PM CDT 07/31/2024 4:24 PM CDT [facility] LAB BLOOD ORDERABLES Final R esult MELISSA ALMENDAREZ (MAGAN) 1 [facility] [place] [address] * D-dimer, quantitative (07/31/2024 4:19 PM CDT) D-Dimer <215 <=499 ng/mL FEU MELISSA TANESHA (ALISO VIEJO) Comment: Interpretive data FDA approved the D-dimer, [...] BLOOD ORDERABLES Final R esult MELISSA ALMENDAREZ (MAGAN) 1 [facility] [place] [place] [address] * XR Chest 1 Vw Portable (if [...] 07/31/2024 4:21 PM - Electronically signed by Wenrer Cope D.O. PS: PS Report ID: [id number] Reading Location: [id number] Procedure Note Werner Cope DO - 07/31/2024 [...] Werner Cope D.O. PS: PS Report ID: [id number] Reading Location: [id number] Emi Beth MD IMG XR PROCEDURES F inal Result * ECG 12 lead (07/31/2024 3:13 PM CDT) 07/31/2024 3:13 PM CDT Narrative [facility] - 07/31/2024 3:50 PM CDT Vent Rate: 92 bpm RR Interval: 646 msec NE Interval: 140 msec QRS Duration: 89 msec QT Interval: 337 msec QTC Interval: 387 msec P-R-T [place]: 59 - 6 - 19 degrees IMPRESSION: SINUS RHYTHM NORMAL ECG no change from prior EKG Electronically Signed By: Justin Jacome MD Emi Beth MD ECG ORDERABLES Fin al Result [facility] * Troponin T high-sensitivity series (baseline, 2hr, 4hr, 6hr) (07/31/2024 3:13 PM CDT) Pathologist [facility] Trop T hs <6 <=14 ng/L Comment: Interpretive Data For further hscTnT resources including the diagnostic algorithm and an aid in interpretation, copy and paste this link: https://nrl.testcatalog.org/show/hsTrop Current Interpretive Data last revised 2020. Blood 07/31/2024 3:13 PM CDT 07/31/2024 3:18 PM CDT Emi Beth MD LAB BLOOD ORDERABLE S Final Result MELISSA ALMENDAREZ ([place]) 1 [facility] [place] [address] * eGFR (07/31/2024 3:13 PM CDT) Pathologist [facility] eGFR >90 >=60 mL/min/1. 73 m2 Comment: [...] BLOOD ORDERABLE S Final Result MELISSA [facility] ([place]) 1 [facility] [place] [address] * Differential, auto (07/31/2024 3:13 PM CDT) [...] revised on 2017. Monocyte pct 7.2 % [facility] (MAGAN) Comment: Interpretive Data Percent cell [...] revised on 2017. Basophil pct 0.4 % MELISSA [facility] (MAGAN) Comment: Interpretive Data Percent cell count reference ranges are not reported, since discordance with absolute values may lead to misinterpretation of CBC data. Current Interpretive Data was last revised on 2017. Blood 07/31/2024 3:13 PM CDT 07/31/2024 3:18 PM CDT us Emi Beth MD LAB BLOOD ORDERABLE S Final Result MELISSA ALMENDAREZ ([place]JO) 1 [facility] [place] [address] * CBC with auto differential (07/31/2024 3:13 PM CDT) WBC 9.79 3.80 - 9.90 K/cumm Hgb 13.8 11.9 - 15.5 g/dL MELISSA [facility] (MAGAN) Hct 39.8 35.6 - 45.5 % MELISSA [facility] (MAGAN) Plt 263 150 - 400 K/cumm [facility]SA [facility] (MAGAN) MPV 9.3 9.1 - 12.3 fL MELISSA [facility] (MAGAN) RBC 4.60 3.90 - 5.20 M/cumm [facility] (MAGAN) MCV 86.5 81.3 - 96.[address] [facility] (MAGAN) MCH 30.0 27.1 - 33.[address] [facility] (MAGAN) MCHC 34.7 32.3 - 35.7 g/dL [facility] ([facility]) RDW CV 12.7 11.1 - 14.9 % [facility] (MAGAN) RDW SD 39.8 35.7 - 48.[address] [facility] (MAGAN) NRBC abs 0.00 0.00 - 0.01 K/cumm [facility] (MAGAN) Blood Venous blood specimen / Unknown 07/31/2024 3:13 PM CDT 07/31/2024 3:18 PM CDT us Emi Beth MD LAB BLOOD ORDERABLE S Final Result [facility] ([place]) 1 [facility] [place] [address] * Comprehensive metabolic panel (07/31/2024 3:13 PM CDT) Sodium 138 135 - 145 mmol/L Potassium, pl 4.1 3.3 - 4.9 mmol/L [facility] (MAGAN) Chloride 102 97 - 110 mmol/L [facility] (MAGAN) CO2 24 22 - 32 mmol/L [facility] (MAGAN) Anion gap 13 2 - 15 mmol/L [facility] (MAGAN) BUN 11 6 - 25 mg/dL [facility] (MAGAN) Creatinine 0.73 0.60 - 1.10 mg/dL [facility] ([facility]) Glucose 128 70 - 199 mg/dL [facility] (MAGAN) Comment: Interpretive Data Fasting glucose [...] classification and Diagnosis of Diabetes Diabetes Care 2021; 46: S19-S40. Current interpretive data was last [...] (MAGAN) AST 14 10 - 45 Units/L [facility] (MAGAN) Comment: Hemolysis present. Results may be affected. Slightly Hemolyzed Specimen Blood 07/31/2024 3:13 PM CDT 07/31/2024 3:18 PM CDT us Emi Beth MD LAB BLOOD ORDERABLE S Final Result MELISSA [facility] (ALISO VIEJO) 1 [facility] [place] [address] * US Thyroid (07/09/2024 11:40 AM CDT) [...] Telly Victoria M.D. CH: JANY Report ID: [id number] Reading Location: [id number] Procedure Note Telly Victoria Jr., MD - [...] Electronically signed by Telly Victoria M.D. CH: AJNY Report ID: [id number] Reading Location: [id number] Result [facility] Edwin Larose MD IMG US PROCEDURES Final Result * (ABNORMAL) T3, free (05/26/2024 2:23 PM PERSONNEL GENERALIST MANAGER) Free T3 4.8(H) 2.0 - 4.4 pg/mL Blood 05/26/2024 2:23 PM PERSONNEL GENERALIST MANAGER 05/26/2024 5:57 PM PERSONNEL GENERALIST MANAGER Edwin Larose MD LAB BLOOD ORDERABLES Final Resul t Performing Organization Address [facility] Co de Phone Number MELISSA [address] [address] [facility] [place] [address] * TSH (05/26/2024 2:23 PM PERSONNEL GENERALIST MANAGER) Thyroid Stimulating Hormone 0.50 0.30 - 4.20 mcIUnit/mL Blood 05/26/2024 2:23 PM PERSONNEL GENERALIST MANAGER 05/26/2024 5:57 PM PERSONNEL GENERALIST MANAGER Result [facility] Edwin Larose MD LAB BLOOD ORDERABLES Final Resul t Performing Organization Address [facility] de Phone Number MELISSA [address] [address] [facility] [place] [address] * T4, free (05/26/2024 2:23 PM PERSONNEL GENERALIST MANAGER) Free T4 1.19 0.90 - 1.70 ng/dL Blood 05/26/2024 2:23 PM PERSONNEL GENERALIST MANAGER 05/26/2024 5:57 PM PERSONNEL GENERALIST MANAGER Result [facility] Edwin Larose MD LAB BLOOD ORDERABLES Final Resul t Performing Organization Address [facility] Co de Phone Number TOBYLOBITO [address] [address] [facility] [place] [address] from Last 3 Months Insurance [facility] Care Teams Cement Side Laster Relationship Specialty Start Date End Date Vito Kamara MD [address] [place] [address] PCP - General Internal Medicine 07/09/19 Seferino Morton MD Consulting Physician Nephrology 07/09/19
--- OUTSIDE RECORDS SUMMARY | 2024-08-08 18:56 | XMS_ITS | Clinical Summary ---
Author Organization [facility] [employer] Address [address] [place] [address] Care Team Providers Care Human Resource Officer Name Role Phone Unavailable Primary Care Provider Unavailabl e Source Comments [facility],non-owned Affiliates and Associated Physician Practices is amultiple site organization consisting of ambulatory clinics and hospital sitesin [place], [place], [place] and [place]. This disclosure is being madepursuant to the Care Everywhere program and may not contain all information available regarding this patient. Last updated 18.[facility] [employer] Allergies Active Allergy Reactions Criticality Noted Date Comments Bee Swelling 06/19/2015 Latex Rash Low 06/19/2015 Medications * Be aware that medications may not be up to date on this document. Alwaysverify current medications with the patient. Vit-Fe Fumarate-FA ( VITAMIN) 28-0.8 MG tablet Take 1 Tab by mouth once daily Active aspirin EC (ECOTRIN) 81 MG tablet Take 81 mg by mouth once daily Active enoxaparin (LOVENOX) injection Inject 40 mg subcutaneously once daily Active iron polysaccharides (NIFEREX 150) 150 MG capsuleIndications :Supervision of high risk in second trimester (HCC) Take 1 Cap by mouth at bedtime 30 Cap 0 06/20/19 16 Active phenazopyridine (PYRIDIUM) 200 MG tablet Take 1 Tab by mouth 3 times daily, after meals 90 Tab 0 06/20/19 16 Active Active Problems Problem Noted Date Diagnosed Date GBS (group B Streptococcus c arrier), +RV culture, currently 06/22/2015 Supervision of high risk in second tri mester 06/19/2015 Overview (06/22/2015): PNC: Dr. Jaycee Mayo [...] = 0.6 oz pur e alcohol) Comments No Sex and Gender Information Value Date Recorded Sex Assigned at Not on file Legal Sex Female 5:51 AM HIGH SCHOOL DRAFTING TEACHER Gender Identity Not on file Sexual Orientation Not on file Last Filed Vital Signs Vital Sign Reading Time Taken Comments Blood Pressure 122/70 06/20/2015 2:44 PM HIGH SCHOOL DRAFTING TEACHER Pulse - - Temperature 36.6 C (97.9 F) 06/20/2015 8:47 AM HIGH SCHOOL DRAFTING TEACHER Respiratory Rate 18 06/20/2015 2:44 PM HIGH SCHOOL DRAFTING TEACHER Oxygen Saturation 100% 06/19/2015 7:40 PM HIGH SCHOOL DRAFTING TEACHER Inhaled Oxygen Concentration - - Weight 112.5 kg (248 lb) 06/20/2015 2:00 PM HIGH SCHOOL DRAFTING TEACHER Height 170.2 cm (5' 7 ) 06/20/2015 2:00 PM HIGH SCHOOL DRAFTING TEACHER Body Mass Index 38.84 06/20/2015 2:00 PM HIGH SCHOOL DRAFTING TEACHER Plan of Treatment Health Maintenance Due Date Last Done Comments LIPID TESTING 1981 MAMMOGRAM 1981 HIV SCREENING 1996 HEPATITIS C SCREENING 03/07/1999 DTAP/TDAP/TD VACCINES (1 - Tdap) 2000 HEPATITIS B VACCINE (1 of 3 - 19+ 3-dose series) 2000 COVID-19 VACCINE (1 - 2023-2 5 season) 2023 DEPRESSION SCREENING 04/22/2024 INFLUENZA VACCINE (Season Ended) 2024 ZOSTER VACCINE (1 of 2) 2031 HIB VACCINE Aged Out No longer eligi ble based on patient's age to complete this topic HPV VACCINE Aged Out No longer eligi ble based on patient's age to complete this topic MENINGOCOCCAL (Group B) VACC INE SHARED DECISION-MAKING Aged Out No longer eligibl e based on patient's age to complete this topic MENINGOCOCCAL GROUPS A/C/Y/W VACCINE Aged Out No longer eligible b ased on patient's age to complete this topic PNEUMOCOCCAL VACCINE Aged Out No long er eligible based on patient's age to complete this topic Insurance Advance Directives * Full Code (Latest Code Status on File) Date Activated Date Inactivated Comments 06/19/2015 8:17 PM 06/20/2015 6:22 PM
[2024-08-08 18:58] VITALS: BP 151/93; PULSE 112; RESP 16; TEMP 36.7; O2SAT 97
--- OUTSIDE RECORDS SUMMARY | 2024-08-08 20:24 | XMS_ITS | Encounter Summary ---
Author Organization [employer] Address [address] [place] [address] Care Team Providers Care Director Clinical Data Name Role Phone Unavailable Primary Care Provider Unavailabl e Encounter Details Date Type Department Care Team (Late st Contact Info) Description 01/14/2008 Outpatient Historical [facility] Rosa Reyes MD [address] [facility] [address] [place] [address] Missed Social History Tobacco Use Types Packs/Day Years Used Date Smoking Tobacco: Never Assessed Comments Unknown Sex and Gender Information Value Date Recorded Sex Assigned at Not on file Legal Sex Female 2:39 AM BRIM CURLER Gender Identity Not on file Sexual Orientation [...] QUANT, BLOOD 10(H) 0 - 5 mIU/mL [facility] Comment: Result of 5 - 25 [...] Edited INTERFACE SYSTEM Refer to clinic/hospital department [facility] CLIA# [id number] [address] [place] [address] documented in this encounter Visit Diagnoses Diagnosis Missed documented in this encounter
--- OUTSIDE RECORDS SUMMARY | 2024-08-08 20:24 | XMS_ITS | Clinical Summary ---
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
--- OUTSIDE RECORDS SUMMARY | 2024-08-08 20:24 | XMS_ITS | Encounter Summary ---
Author Organization [employer] Address [address] [place] [address] Care Team Providers Care Production Control Analyst Name Role Phone Unavailable Primary Care Provider Unavailabl e Encounter Details Date Type Department Care Team (Late st Contact Info) Description 01/09/2008 Outpatient Historical [facility] Rosa Reyes MD [address] [facility] [address] [place] [address] Irregular Menstrual Cycle Social History Tobacco Use Types Packs/Day Years Used Date Smoking Tobacco: Never Assessed Comments Unknown Sex and Gender Information Value Date Recorded Sex Assigned at Not on file Legal Sex Female 2:39 AM SILK SCREEN ETCHER Gender Identity Not on file Sexual Orientation [...] QUANT, BLOOD 140(H) 0 - 5 mIU/mL [facility] Comment: Result of 5 - 25 [...] - 01/12/2008 10:40 AM CDT faxed to [phone] 01/12/08 10:40 AM ve oRsa Reyes MD CHEMISTRY ORDERABLES Edited INTERFACE SYSTEM Refer to clinic/hospital department [facility] CLIA# [id number] [address] [facility] [place] [address] * PROGESTERONE (01/09/2008 4:20 PM CDT) PROGESTERONE 0.8 ng/mL [facility] Comment: Progesterone Reference Range: Female: Normally Menstruating Female Follicular Phase 0.2 - 1.5 ng/mL Ovulation Phase 0.8 - 3.0 ng/mL Luteal Phase 1.7 - 27.0 ng/mL Postmenopausal 0.1 - 0.8 ng/mL No Pediatric Reference Range Available. Blood specimen (specimen) 01/09/2008 4:20 PM CDT 01/09/2008 4:39 PM CDT us Rosa Reyes MD CHEMISTRY ORDERABLES Final Re sult INTERFACE SYSTEM Refer to clinic/hospital department [facility] CLIA# [id number] [address] [place] [address] documented in this encounter Visit Diagnoses Diagnosis Irregular menstrual cycle documented in this encounter
--- OUTSIDE RECORDS SUMMARY | 2024-08-08 20:24 | XMS_ITS | Encounter Summary ---
Author Organization [employer] Address [address] [place] [address] Care Team Providers Care Mechanic Sound Technician Name Role Phone Unavailable Primary Care Provider Unavailabl e Encounter Details Date Type Department Care Team (Late st Contact Info) Description 01/22/2008 Outpatient Historical [facility] Rosa Reyes MD [address] [facility] [address] [place] [address] Missed Social History Tobacco Use Types Packs/Day Years Used Date Smoking Tobacco: Never Assessed Comments Unknown Sex and Gender Information Value Date Recorded Sex Assigned at Not on file Legal Sex Female 2:39 AM MD PEDIATRIC ALLERGIST Gender Identity Not on file Sexual Orientation Not on file documented as of this encounter Plan of Treatment Not on file documented as of this encounter Procedures Procedure Name Priority Date/Time Associated Diagnosis Comments HCG QUANTITATIVE, BLOOD Routine 01/22/2008 3:53 PM CDT documented in this encounter Results * HCG QUANTITATIVE, BLOOD (01/22/2008 3:53 PM CDT) HCG QUANT, BLOOD <5 0 - 5 mIU/mL [facility] Comment: Result of 5 - [...] - 01/22/2008 5:38 PM CDT fax results [phone] results faxed 01/22/08 5:38 PM dl us Rosa Reyes MD CHEMISTRY ORDERABLES Edited INTERFACE SYSTEM Refer to clinic/hospital department [facility] CLIA# [id number] [address] [place] [address] documented in this encounter Visit Diagnoses Diagnosis Missed documented in this encounter
--- OUTSIDE RECORDS SUMMARY | 2024-08-08 20:24 | XMS_ITS | Encounter Summary ---
Author Organization [employer] Address [address] [place] [address] Care Team Providers Care Orderlies Teacher Name Role Phone Unavailable Primary Care Provider Unavailabl e Encounter Details Date Type Department Care Team (Late st Contact Info) Description 04/08/1998 Outpatient Historical [facility] EM[facility]Y RO[facility] Justo Peace MD [address] [facility] [place] [address] Er, Authorized P NO ADDRESS ON FILE Contusion of abdominal wall (Primary Dx) Social History Tobacco Use Types Packs/Day Years Used Date Smoking Tobacco: Never Assessed Comments Unknown Sex and Gender Information Value Date Recorded Sex Assigned at Not on file Legal Sex Female 2:39 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
--- OUTSIDE RECORDS SUMMARY | 2024-08-08 20:24 | XMS_ITS | Encounter Summary ---
Author Organization [employer] Address [address] [place] [address] Care Team Providers Care Medicine And Health Service Manager Name Role Phone Unavailable Primary Care Provider Unavailabl e Encounter Details Date Type Department Care Team (Late st Contact Info) Description 03/17/2008 Outpatient Historical [facility] Er, Authorized P NO ADDRESS ON FILE Taj Valles MD [facility] [place] [address] Social History Tobacco Use Types Packs/Day Years Used Date Smoking Tobacco: Never Assessed Comments Unknown Sex and Gender Information Value Date Recorded Sex Assigned at Not on file Legal Sex Female 2:39 AM GEOCHEMIST Gender Identity Not on file Sexual Orientation Not on file documented as of this encounter Plan of Treatment Not on file documented as of this encounter Visit Diagnoses Not on filedocumented in this encounter
--- OUTSIDE RECORDS SUMMARY | 2024-08-08 20:24 | XMS_ITS | Encounter Summary ---
Author Organization [facility] Healthcare Address [address] [place] [address] Care Team Providers Care Linux Consultant Name Role Phone Seferino Morton MD Unavailable [phone] Vito Kamara MD Primary Care Provider [phone] Encounter Details Date Type Department Care Team (Late st Contact Info) Description 07/17/2024 Results Follow[place]Up [facility] [address] [address] [place] [address] [address] Social History Tobacco Use Types [...] on file Legal Sex Female 2:34 AM MUSIC THERAPIST Gender Identity Female 02/23/2020 2:45 PM MUSIC THERAPIST Sexual Orientation Straight 02/23/2020 2: 45 PM MUSIC THERAPIST documented as of this encounter Plan of Treatment Not on file documented as of this encounter Visit Diagnoses Not on filedocumented in this encounter Care Teams Linux Consultant Relationship Specialty Start Date End Date Vito Kamara MD [address] [place] [address] PCP - General Internal Medicine 07/09/19 Seferino Morton MD Consulting Physician Nephrology 07/09/19 documented as of this encounter
--- OUTSIDE RECORDS SUMMARY | 2024-08-08 20:25 | XMS_ITS | Encounter Summary ---
Author Organization [employer] Address [address] [place] [address] Care Team Providers Care Swedger Name Role Phone Unavailable Primary Care Provider Unavailabl e Encounter Details Date Type Department Care Team (Latest Contact Info) Description 02/24/2006 Outpatient Historical HIS OB PREADMIT Haris Whiting MD [address] [place] [address] Rosa Reyes MD [address] [place], [place] [id number] Other Current Maternal Conditions Classifiable Elsewhere, Antepartum (Primary Dx) Social History Tobacco Use Types Packs/Day Years Used Date Smoking Tobacco: Never Assessed Comments Unknown Sex and Gender Information Value Date Recorded Sex Assigned at Not on file Legal Sex Female 2:39 AM DIRECTOR OF BUSINESS CONTINUITY Gender Identity Not on file Sexual Orientation Not on file documented as of this encounter Plan of Treatment Not on file documented as of this encounter Procedures Procedure Name Priority Date/Time Associated Diagnosis Comments CBC WITH DIFFERENTIAL Routine 02/24/2006 3:00 PM DIRECTOR OF BUSINESS CONTINUITY CBC WITH DIFFERENTIAL Routine 02/24/2006 3:00 PM DIRECTOR OF BUSINESS CONTINUITY URINALYSIS W/REFLEX MICROSCOPIC Routine 02/24/2006 2:56 PM DIRECTOR OF BUSINESS CONTINUITY documented in this encounter Results * (ABNORMAL) CBC WITH DIFFERENTIAL (02/24/2006 3:00 PM DIRECTOR OF BUSINESS CONTINUITY) NEUTROPHILS 76(H) 45 - 70 % INTERFAC [...] 0.20 K/uL INTERFACE SYSTEM 02/24/2006 3:00 PM DIRECTOR OF BUSINESS CONTINUITY Rosa Reyes MD HEMATOLOGY ORDERABLES Final R esult Performing Organization Address [facility] Phone Number INTERFACE SYSTEM Refer to clinic/hospital department * (ABNORMAL) CBC WITH DIFFERENTIAL (02/24/2006 3:00 PM DIRECTOR OF BUSINESS CONTINUITY) WBC 9.9(H) 4.0 - 9.8 K/uL INTERFACE [...] 12.4 fL INTERFACE SYSTEM 02/24/2006 3:00 PM DIRECTOR OF BUSINESS CONTINUITY Rosa Reyes MD HEMATOLOGY ORDERABLES Final R esult Performing Organization Address [facility] de Phone Number INTERFACE SYSTEM Refer to clinic/hospital department * URINALYSIS (02/24/2006 2:56 PM DIRECTOR OF BUSINESS CONTINUITY) COLOR UA Yellow INTERFACE SYSTEM CLARITY UA [...] Negative Negative INTERFACE SYSTEM 02/24/2006 2:56 PM DIRECTOR OF BUSINESS CONTINUITY Rosa Reyes MD URINE ORDERABLES Final Result INTERFACE SYSTEM Refer to clinic/hospital department documented in this encounter Visit Diagnoses Diagnosis Other current maternal conditions classifiable elsewhere, antepartum- Primary documented in this encounter
--- OUTSIDE RECORDS SUMMARY | 2024-08-08 20:25 | XMS_ITS | Encounter Summary ---
Author Organization [employer] Address [address] [place] [address] Care Team Providers Care Supervisor Spinning Name Role Phone Unavailable Primary Care Provider Unavailabl e Encounter Details Date Type Department Care Team (Latest Contact Info) Description 09/30/2005 Outpatient Historical HIS PATIENT IN A BED ReyesRosa MD [address] [facility] [address] [place] [address] Other Current Maternal Conditions Classifiable Elsewhere, Antepartum (Primary Dx) Social History Tobacco Use Types Packs/Day Years Used Date Smoking Tobacco: Never Assessed Comments Unknown Sex and Gender Information Value Date Recorded Sex Assigned at Not on file Legal Sex Female 2:39 AM CHARGE MASTER ANALYST Gender Identity Not on file Sexual Orientation Not on file documented as of this encounter Plan of Treatment Not on file documented as of this encounter Visit Diagnoses Diagnosis Other current maternal conditions classifiable elsewhere, antepartum- Primary documented in this encounter
--- OUTSIDE RECORDS SUMMARY | 2024-08-08 20:25 | XMS_ITS | Clinical Summary ---
Author Organization [facility] Address [address] [address] Care Team Providers Care Housing Liaison Name Role Phone Vito Kamara MD Primary Care Provider [phone] Allergies Active Allergy Reactions Criticality Noted Date [...] Description 08/11/2024 9:45 AM CDT Office Visit [facility]. [address] [place] [address] Seferino Morton MD [address] [place] [id number] Health Maintenance Due Date Last Done Comments Hepatitis B Vaccine (1 of 3 - 19+ 3-dose series) 03/11 Pneumococcal Vaccine: Peds ( 0 to 5 Years) and At-Risk Patients (6 to 49 Years) (1 of 2 - PCV) 2000 Influenza Vaccine (Season Ended) 2024 Insurance Critical access hospital Care Teams Housing Liaison Relationship Specialty Start Date End Date Vito Kamara MD [address] [place] [address] PCP - General Internal Medicine 11/20/18
--- OUTSIDE RECORDS SUMMARY | 2024-08-08 20:25 | XMS_ITS | Encounter Summary ---
Author Organization [employer] Address [address] [place] [address] Care Team Providers Care Lubrication Servicer Name Role Phone Unavailable Primary Care Provider Unavailabl e Encounter Details Date Type Department Care Team (Late st Contact Info) Description 08/06/2005 Outpatient Historical HIS EMERGENCY ROOM Taj Argueta MD [address] [place] [address] [place], Authorized P NO ADDRESS ON FILE Unspecified Conjunctivitis (Primary Dx) Social History Tobacco Use Types Packs/Day Years Used Date Smoking Tobacco: Never Assessed Comments Unknown Sex and Gender Information Value Date Recorded Sex Assigned at Not on file Legal Sex Female 2:39 AM ELECTROMEDICAL SERVICE ENGINEER Gender Identity Not on file Sexual Orientation Not on file documented as of this encounter Plan of Treatment Not on file documented as of this encounter Visit Diagnoses Diagnosis Conjunctivitis unspecified- Primary Conjunctivitis, unspecified documented in this encounter
--- OUTSIDE RECORDS SUMMARY | 2024-08-08 20:25 | XMS_ITS | Clinical Summary ---
Author Organization [facility] Address [address] [place] [address] Care Team Providers Care Program Research Specialist Name Role Phone Seferino Morton MD Unavailable [phone] Vito Kamara MD Primary Care Provider [phone] Allergies Active Allergy Reactions Criticality Noted Date [...] 270 tablet 3 08/09/19 24 Active omega 6-xsk-iyj-fish oil 100-400-1,000 mg capsule Take 1,000 mg [...] 0 07/25/2023 Body mass index 40.0-44.9, adult ([facility]) 07/24 RAVIN (obstructive sleep apnea) 07/23/2023 Hyperlipidemia 07/23/2023 Hypertension 07/23/2023 Palpitation 07/23/2023 Hyperthyroidism 07/09/2019 Assessment & Plan (11/21/2023 1:37 PM CDT): Chronic, stable Update TFTs Continue tapazole. Assessment & Plan (05/16/2023 3:00 PM DRAWING MACHINE OPERATOR): Chronic, uncontrolled Will adjust dose of tapazole accordingly Will recheck labs in 3 months F/u in 6 m Assessment & Plan (08/30/2022 4:56 PM CDT): Chronic, uncontrolled Restart Tapazole 10 mg daily Recheck TFTs in 2 months Follow-up in 4 Assessment & Plan (02/24/2020 5:46 PM DRAWING MACHINE OPERATOR): Thyroid function tests requested. Will adjust dose [...] CDT - 07/31/2024 5:18 PM CDT Emergency [facility] Department [address] [place] [address] Acute costochondritis (Primary Dx); Heartburn Discharge Disposition: Discharge to home or self care 07/31/2024 2:33 PM CDT - 07/31/2024 11:59 PM CDT Hospital Encounter [facility] Discharge Disposition: Discharge to home or self care 07/17/2024 Results Follow-Up [facility] [id number] [place] [address] [place] [address] Ediwn Larose MD 07/09/2024 10:53 AM CDT - 07/09/2024 11:59 PM CDT Hospital Encounter [facility] [address] [place] [address] Multinodular goiter Discharge Disposition: Discharge to home or self care 05/26/2024 2:10 PM DRAWING MACHINE OPERATOR Lab [facility] [id number] [place] [phone] Hyperthyroidism 05/26/2024 1:15 PM DRAWING MACHINE OPERATOR Office Visit [facility] [address] [place] [address] [address], [place] [phone] Edwin Larose MD Hyperthyroidism (Primary Dx); Multinodular [...] on file Legal Sex Female 2:34 AM DRAWING MACHINE OPERATOR Gender Identity Female 02/23/2020 2:45 PM DRAWING MACHINE OPERATOR Sexual Orientation Straight 02/23/2020 2: 45 PM DRAWING MACHINE OPERATOR Obstetrics History Last Filed Vital Signs Vital [...] Body Mass Index 44.31 05/26/2024 1:16 PM DRAWING MACHINE OPERATOR Plan of Treatment Health Maintenance Due [...] goiter T4, FREE Routine 05/26/2024 2:23 PM DRAWING MACHINE OPERATOR Hyperthyroidism T3, FREE Routine 05/26/2024 2:23 PM DRAWING MACHINE OPERATOR Hyperthyroidism TSH Routine 05/26/2024 2:23 PM DRAWING MACHINE OPERATOR Hyperthyroidism from Last 3 Months Results * Troponin T high-sensitivity (07/31/2024 4:19 PM CDT) Pathologist [facility] Trop T hs <6 <=14 ng/L Comment: Interpretive Data For further hscTnT resources including the diagnostic algorithm and an aid in interpretation, copy and paste this link: https://nrl.testcatalog.org/show/hsTrop Current Interpretive Data last revised 2020. Blood 07/31/2024 4:19 PM CDT 07/31/2024 4:24 PM CDT us Va[facility] EDOUARD LAB BLOOD ORDERABLES Final R esult MELISSA ALMENDAREZ [place] [address] [facility] Department [place] [address] * D-dimer, quantitative (07/31/2024 4:19 PM CDT) Pathologist [facility] D-Dimer <215 <=499 ng/mL FEU MELISSA ALMENDAREZ ([place]) Comment: Interpretive data FDA approved the D-dimer, [...] Final R esult MELISSA TANESHA ([place]) [address] [facility] Department [place] [address] * XR Chest 1 Vw Portable (if [...] Werner Cope D.O. PS: PS Report ID: [id number] Reading Location: [id number] Procedure Note Werner Cope DO - 07/31/2024 [...] Werner Cope D.O. PS: PS Report ID: [id number] Reading Location: [id number] Emi Beth MD IMG XR PROCEDURES F inal Result * ECG 12 lead (07/31/2024 3:13 PM CDT) 07/31/2024 3:13 PM CDT Narrative [facility] - 07/31/2024 3:50 PM CDT Vent Rate: 92 bpm RR Interval: 646 msec NV Interval: 140 msec QRS Duration: 89 msec QT Interval: 337 msec QTC Interval: 387 msec P-R-T [place]: 59 - 6 - 19 degrees IMPRESSION: SINUS RHYTHM NORMAL ECG no change from prior EKG Electronically Signed By: Justin Jacome MD Emi Beth MD ECG ORDERABLES Fin al Result [facility] * Troponin T high-sensitivity series [...] ORDERABLE S Final Result Performing Organization Address City/[facility]/ZIP Co de Phone Number MELISSA [facility] [address] [place] [address] * eGFR (07/31/2024 3:13 PM CDT) eGFR [...] BLOOD ORDERABLE S Final Result [facility] ([place]) [address] [facility] [place] [address] * Differential, auto (07/31/2024 3:13 PM CDT) [...] S Final Result [facility] ([place]) [address] [facility] [place] [address] * CBC with auto differential (07/31/2024 3:13 [...] S Final Result [facility]SA [facility] ([place]) [address] [facility] [place] [address] * Comprehensive metabolic panel (07/31/2024 3:13 PM CDT) Sodium 138 135 - 145 mmol/L Potassium, pl 4.1 3.3 - 4.9 mmol/L [facility] ([place]) Chloride 102 97 - 110 mmol/L [facility] ([place]) CO2 24 22 - 32 mmol/L [facility] ([place]) Anion gap 13 2 - [...] S Final Result MELISSA ALMENDAREZ ([place]) [address] [facility] [place] [address] * US Thyroid (07/09/2024 11:40 AM CDT) [...] Telly Victoria M.D. CH: JANY Report ID: [id number] Reading Location: [id number] Procedure Note Telly Victoria Jr., MD - [...] Telly Victoria M.D. CH: JANY Report ID: [id number] Reading Location: [place] [address] Edwin Larose MD IMG US PROCEDURES Final Result * (ABNORMAL) T3, free (05/26/2024 2:23 PM DRAWING MACHINE OPERATOR) Free T3 4.8(H) 2.0 - 4.4 pg/mL Blood 05/26/2024 2:23 PM DRAWING MACHINE OPERATOR 05/26/2024 5:57 PM DRAWING MACHINE OPERATOR Edwin Larose MD LAB BLOOD ORDERABLES Final Resul t MELISSA CARMICHAEL [address] Department [place] [address] * TSH (05/26/2024 2:23 PM DRAWING MACHINE OPERATOR) Thyroid Stimulating Hormone 0.50 0.30 - 4.20 mcIUnit/mL Blood 05/26/2024 2:23 PM DRAWING MACHINE OPERATOR 05/26/2024 5:57 PM DRAWING MACHINE OPERATOR Edwin Larose MD LAB BLOOD ORDERABLES Final Resul t Performing Organization Address City/State/[facility] Co de Phone Number MELISSA JANY [phone] [place] [place] [address] * T4, free (05/26/2024 2:23 PM DRAWING MACHINE OPERATOR) Free T4 1.19 0.90 - 1.70 ng/dL Blood 05/26/2024 2:23 PM DRAWING MACHINE OPERATOR 05/26/2024 5:57 PM DRAWING MACHINE OPERATOR Edwin Larose MD LAB BLOOD ORDERABLES Final Resul t Performing Organization Address [facility] Co de Phone Number MELISSA CARMICHAEL [phone] [facility] [employer] [place] [address] from Last 3 Months Insurance [facility] Care Teams Program Research Specialist Relationship Specialty Start Date End Date Vito Kamara MD [address] [place] [address] PCP - General Internal Medicine 07/09/19 Seferino Morton MD Consulting Physician Nephrology 07/09/19
--- OUTSIDE RECORDS SUMMARY | 2024-08-08 20:25 | XMS_ITS | Clinical Summary ---
Author Organization [facility] Address [address] [place] [address] Phone Care Team Providers Care Kiss Setter Hand Name Role Phone Phan Calderón MD Unavailable [phone] Vito Kamara MD Primary Care Provider Allergies Active Allergy Reactions Criticality Noted Date [...] now to know Department associated with goal: [facility] Steps to achieve [...] making a change Department associated with goal: [facility] Steps to achieve goal: will identify at least two personal goals per week. will identify and begin implementing at least two action steps to work toward personal goals. will identify and begin implementing at least one skill/activity/habit to improve motivation Insurance MEDICAID [facility] PLAN Advance Directives * Full [...] 09/16/2015 2:21 PM 09/16/2015 6:51 PM CPR-Full Adonsi atment: FULL ARREST: Attempt Resuscitation/CPR wit intubation [...] measures to stabilize the patient. Care Teams Kiss Setter Hand Relationship Specialty Start Date End Date Vito Kamara MD [address] [place] [address] PCP - General Internal Medicine 08/05/18 Phan Calderón MD [address] [place] [address] Neurology 12/12/12
--- OUTSIDE RECORDS SUMMARY | 2024-08-08 20:25 | XMS_ITS | Clinical Summary ---
Author Organization [facility] Address [address] [place] [address] Care Team Providers Care Grain Farmworker Name Role Phone Unavailable Primary Care Provider Unavailabl e Source Comments [facility],non-owned Affiliates and Associated Physician Practices is amultiple site organization consisting of ambulatory clinics and hospital sitesin [place], [place], [place] and [place]. This disclosure is being madepursuant to the Care Everywhere program and may not contain all information available regarding this patient. Last updated 18.[facility] Allergies Active Allergy Reactions Criticality Noted Date [...] on file Legal Sex Female 5:51 AM RESEARCH NUTRITIONIST Gender Identity Not on file Sexual Orientation Not on file Last Filed Vital Signs Vital Sign Reading Time Taken Comments Blood Pressure 122/70 06/20/2015 2:44 PM RESEARCH NUTRITIONIST Pulse - - Temperature 36.6 C (97.9 F) 06/20/2015 8:47 AM RESEARCH NUTRITIONIST Respiratory Rate 18 06/20/2015 2:44 PM RESEARCH NUTRITIONIST Oxygen Saturation 100% 06/19/2015 7:40 PM RESEARCH NUTRITIONIST Inhaled Oxygen Concentration - - Weight 112.5 kg (248 lb) 06/20/2015 2:00 PM RESEARCH NUTRITIONIST Height 170.2 cm (5' 7 ) 06/20/2015 2:00 PM RESEARCH NUTRITIONIST Body Mass Index 38.84 06/20/2015 2:00 PM RESEARCH NUTRITIONIST Plan of Treatment Health Maintenance Due Date [...]
--- OUTSIDE RECORDS SUMMARY | 2024-08-08 20:25 | XMS_ITS | Encounter Summary ---
Author Organization [employer] Address [address] [place] [address] Care Team Providers Care Exhauster Engineer Name Role Phone Unavailable Primary Care Provider Unavailabl e Encounter Details Date Type Department Care Team (Latest Contact Info) Description 03/06/2006 Inpatient Historical HIS OB PREADMIT Rosa Reyes MD [address] [facility] [address] [place] [address] Abnormality in Heart Rate/Rhythm, Delivered (Primary Dx) Social History Tobacco Use Types Packs/Day Years Used Date Smoking Tobacco: Never Assessed Comments Unknown Sex and Gender Information Value Date Recorded Sex Assigned at Not on file Legal Sex Female 2:39 AM ART GLASS DESIGNER Gender Identity Not on file Sexual Orientation Not on file documented as of this encounter Plan of Treatment Not on file documented as of this encounter Procedures Procedure Name Priority Date/Time Associated Diagnosis Comments CBC WITH DIFFERENTIAL Routine 03/08/2006 4:25 AM ART GLASS DESIGNER CBC WITH DIFFERENTIAL Routine 03/08/2006 4:25 AM ART GLASS DESIGNER CBC WITH DIFFERENTIAL Routine 03/06/2006 6:22 AM ART GLASS DESIGNER CBC WITH DIFFERENTIAL Routine 03/06/2006 6:22 AM ART GLASS DESIGNER documented in this encounter Results * (ABNORMAL) CBC WITH DIFFERENTIAL (03/08/2006 4:25 AM ART GLASS DESIGNER) NEUTROPHILS 71(H) 45 - 70 % INTERFAC [...] 0.20 K/uL INTERFACE SYSTEM 03/08/2006 4:25 AM ART GLASS DESIGNER Rosa Reyes MD HEMATOLOGY ORDERABLES Final R esult INTERFACE SYSTEM Refer to clinic/hospital department * (ABNORMAL) CBC WITH DIFFERENTIAL (03/08/2006 4:25 AM ART GLASS DESIGNER) WBC 11.1(H) 4.0 - 9.8 K/uL INTERFACE [...] 12.4 fL INTERFACE SYSTEM 03/08/2006 4:25 AM ART GLASS DESIGNER Rosa Reyes MD HEMATOLOGY ORDERABLES Final R esult INTERFACE SYSTEM Refer to clinic/hospital department * (ABNORMAL) CBC WITH DIFFERENTIAL (03/06/2006 6:22 AM ART GLASS DESIGNER) NEUTROPHILS 72(H) 45 - 70 % INTERFAC [...] 0.20 K/uL INTERFACE SYSTEM 03/06/2006 6:22 AM ART GLASS DESIGNER Rosa Reyes MD HEMATOLOGY ORDERABLES Final R esult Performing Organization Address City/[facility] de Phone Number INTERFACE SYSTEM Refer to clinic/hospital department * (ABNORMAL) CBC WITH DIFFERENTIAL (03/06/2006 6:22 AM ART GLASS DESIGNER) WBC 9.6 4.0 - 9.8 K/uL INTERFACE [...] 12.4 fL INTERFACE SYSTEM 03/06/2006 6:22 AM ART GLASS DESIGNER Rosa Reyes MD HEMATOLOGY ORDERABLES Final R esult Performing Organization Address City/[facility] de Phone Number INTERFACE SYSTEM Refer to clinic/hospital department documented in this encounter Visit Diagnoses Diagnosis Abnormality in heart rate/rhythm, delivered, with or without mention of antepartum condition- Primary documented in this encounter
--- OUTSIDE RECORDS SUMMARY | 2024-08-08 20:25 | XMS_ITS | Referral Summary ---
Author Organization [facility] Address [address] [place] [address] Care Team Providers Care Telephone Lineman Name Role Phone Seferino Morton MD Unavailable [phone] Vito Kamara MD Primary Care Provider [phone] Encounters Date Type Department Care Team Description 07/31/2024 2:33 PM CDT - 07/31/2024 11:59 PM CDT Hospital Encounter [facility] Discharge Disposition: Discharge to home or self care 07/31/2024 3:57 PM CDT - 07/31/2024 5:18 PM CDT Emergency [facility] Emergency Department [address] [place] [address] Acute costochondritis (Primary Dx); Heartburn Discharge Disposition: Discharge to home or self care 07/17/2024 Results Follow-Up [facility] [address] [address] Edwin Larose MD 07/09/2024 10:53 AM CDT - 07/09/2024 11:59 PM CDT Hospital Encounter [facility] Imaging Center [address] [place] [address] Multinodular goiter Discharge Disposition: Discharge to home or self care 05/26/2024 2:10 PM DOLL EYE SETTER Lab [address] [address] Hyperthyroidism 05/26/2024 1:15 PM DOLL EYE SETTER Office Visit [facility] [address] [address] Edwin Larose MD Hyperthyroidism (Primary [...] 270 tablet 3 08/09/19 24 Active omega 7-piu-qmg-fish oil 100-400-1,000 mg capsule Take 1,000 mg [...] tapazole. Assessment & Plan (05/16/2023 3:00 PM DOLL EYE SETTER): Chronic, uncontrolled Will adjust dose of tapazole accordingly Will recheck labs in 3 months F/u in 6 m Assessment & Plan (08/30/2022 4:56 PM CDT): Chronic, uncontrolled Restart Tapazole 10 mg daily Recheck TFTs in 2 months Follow-up in 4 Assessment & Plan (02/24/2020 5:46 PM DOLL EYE SETTER): Thyroid function tests requested. Will adjust dose [...] on file Legal Sex Female 2:34 AM DOLL EYE SETTER Gender Identity Female 02/23/2020 2:45 PM DOLL EYE SETTER Sexual Orientation Straight 02/23/2020 2: 45 PM DOLL EYE SETTER Last Filed Vital Signs Vital Sign Reading [...] Body Mass Index 44.31 05/26/2024 1:16 PM DOLL EYE SETTER Plan of Treatment Not on file Procedures [...] goiter T4, FREE Routine 05/26/2024 2:23 PM DOLL EYE SETTER Hyperthyroidism T3, FREE Routine 05/26/2024 2:23 PM DOLL EYE SETTER Hyperthyroidism TSH Routine 05/26/2024 2:23 PM DOLL EYE SETTER Hyperthyroidism from Last 3 Months Results * [...] Final R esult MELISSA ALMENDAREZ (MAGAN) [address] [facility] [place] [address] * D-dimer, quantitative (07/31/2024 4:19 PM CDT) D-Dimer <215 <=499 ng/mL FEU MELISSA TANESHA ([place]) Comment: Interpretive data FDA approved the D-dimer, [...] Final R esult MELISSA ALMENDAREZ (MAGAN) 1 [facility] [place] [place] [address] * XR Chest 1 Vw Portable (if [...] Werner Cope D.O. PS: PS Report ID: [id number] Reading Location: [id number] Procedure Note Werner Cope DO - 07/31/2024 [...] Werner Cope D.O. PS: PS Report ID: [id number] Reading Location: [id number] Emi Beth MD IMG XR PROCEDURES F inal Result * ECG 12 lead (07/31/2024 3:13 PM CDT) 07/31/2024 3:13 PM CDT Narrative [facility] - 07/31/2024 3:50 PM CDT Vent Rate: 92 bpm RR Interval: 646 msec MD Interval: 140 msec QRS Duration: 89 msec QT Interval: 337 msec QTC Interval: 387 msec P-R-T [place]: 59 - 6 - 19 degrees IMPRESSION: SINUS RHYTHM NORMAL ECG no change from prior EKG Electronically Signed By: Justin Jacome MD Emi Beth MD ECG ORDERABLES Fin al Result [facility] * Troponin T high-sensitivity series (baseline, 2hr, 4hr, 6hr) (07/31/2024 3:13 PM CDT) Pathologist [facility] Trop T hs <6 <=14 ng/L Comment: Interpretive Data For further hscTnT resources including the diagnostic algorithm and an aid in interpretation, copy and paste this link: [email or web address] Current Interpretive Data last revised 2020. Blood 07/31/2024 3:13 PM CDT 07/31/2024 3:18 PM CDT Emi Beth MD LAB BLOOD ORDERABLE S Final Result MELISSA ALMENDAREZ ([place]) [address] [facility] [place] [address] * eGFR (07/31/2024 3:13 PM CDT) Pathologist [facility] eGFR >90 >=60 mL/min/1. 73 m2 Comment: [...] BLOOD ORDERABLE S Final Result MELISSA [facility] ([place]) [address] [facility] [place] [address] * Differential, auto (07/31/2024 3:13 PM CDT) [...] 2017. Monocyte pct 7.2 % [facility] (MGAAN) Comment: Interpretive Data Percent cell count reference [...] BLOOD ORDERABLE S Final Result MELISSA ALMENDAREZ ([place]) [address] [facility] [place] [address] * CBC with auto differential (07/31/2024 3:13 PM CDT) WBC 9.79 3.80 - 9.90 K/cumm Hgb 13.8 11.9 - 15.5 g/dL MELISSA [facility] (MAGAN) Hct 39.8 35.6 - 45.5 % MELISSA [facility] (MAGAN) Plt 263 150 - 400 K/cumm [facility] ([place]) MPV 9.3 9.1 - 12.3 fL MELISSA [facility] ([place]) RBC 4.60 3.90 - 5.20 M/cumm [facility] ([place]) MCV 86.5 81.3 - 96.4 fL [facility] ([place]) MCH 30.0 27.1 - 33.3 pg [facility] ([place]) MCHC 34.7 32.3 - 35.7 g/dL [facility] ([place]) RDW CV 12.7 11.1 - 14.9 % [facility] ([place]) RDW SD 39.8 35.7 - 48.1 fL [facility] ([place]) NRBC abs 0.00 0.00 - 0.01 K/cumm [facility] ([place]) Blood Venous blood specimen / Unknown 07/31/2024 3:13 PM CDT 07/31/2024 3:18 PM CDT us Emi Beth MD LAB BLOOD ORDERABLE S Final Result [facility] ([place]) [address] [facility] [place] [address] * Comprehensive metabolic panel (07/31/2024 3:13 PM CDT) Sodium 138 135 - 145 mmol/L Potassium, pl 4.1 3.3 - 4.9 mmol/L [facility] ([place]) Chloride 102 97 - 110 mmol/L [facility] ([place]) CO2 24 22 - 32 mmol/L [facility] ([place]) Anion gap 13 2 - 15 mmol/L [facility] ([place]) BUN 11 6 - 25 mg/dL [facility] ([place]) Creatinine 0.73 0.60 - 1.10 mg/dL [facility] ([place]) Glucose 128 70 - 199 mg/dL [facility] ([place]AN) Comment: Interpretive Data Fasting glucose [...] LAB BLOOD ORDERABLE S Final Result MELISSA [facility] ([place]) [address] [facility] [place] [address] * US Thyroid (07/09/2024 11:40 AM CDT) [...] Telly Victoria M.D. CH: JANY Report ID: [id number] Reading Location: [id number] Procedure Note Telly Victoria Jr., MD - [...] Telly Victoria M.D. CH: JANY Report ID: [id number] Reading Location: [id number] Result [facility] Edwin Larose MD IMG US PROCEDURES Final Result * (ABNORMAL) T3, free (05/26/2024 2:23 PM DOLL EYE SETTER) Free T3 4.8(H) 2.0 - 4.4 pg/mL Blood 05/26/2024 2:23 PM DOLL EYE SETTER 05/26/2024 5:57 PM DOLL EYE SETTER Edwin Larose MD LAB BLOOD ORDERABLES Final Resul t Performing Organization Address [facility] Co de Phone Number MELISSA [phone] [facility] [place] [address] * TSH (05/26/2024 2:23 PM DOLL EYE SETTER) Thyroid Stimulating Hormone 0.50 0.30 - 4.20 mcIUnit/mL Blood 05/26/2024 2:23 PM DOLL EYE SETTER 05/26/2024 5:57 PM DOLL EYE SETTER Result [facility] Edwin Larose MD LAB BLOOD ORDERABLES Final Resul t Performing Organization Address [facility] de Phone Number MELISSA [phone] [facility] [place] [address] * T4, free (05/26/2024 2:23 PM DOLL EYE SETTER) Free T4 1.19 0.90 - 1.70 ng/dL Blood 05/26/2024 2:23 PM DOLL EYE SETTER 05/26/2024 5:57 PM DOLL EYE SETTER Result [facility] Edwin Larose MD LAB BLOOD ORDERABLES Final Resul t Performing Organization Address [facility] Co de Phone Number TOBYLOBITO [phone] [facility] [place] [address] from Last 3 Months Insurance [facility] Care Teams Telephone Lineman Relationship Specialty Start Date End Date Vito Kamara MD [address] [place] [id number] PCP - General Internal Medicine 07/09/19 Seferino Morton MD Consulting Physician Nephrology 07/09/19
--- OUTSIDE RECORDS SUMMARY | 2024-08-08 20:25 | XMS_ITS | Encounter Summary ---
Author Organization [employer] Address [address] [place] [address] Care Team Providers Care Frame Wirer Name Role Phone Unavailable Primary Care Provider Unavailabl e Encounter Details Date Type Department Care Team (Late st Contact Info) Description 06/02/2007 Outpatient Historical [facility] [place], Authorized P NO ADDRESS ON FILE Elias Green MD [address] [place] [address] Social History Tobacco Use Types Packs/Day Years Used Date Smoking Tobacco: Never Assessed Comments Unknown Sex and Gender Information Value Date Recorded Sex Assigned at Not on file Legal Sex Female 2:39 AM GLOBAL CLIMATE CHANGE RESEARCHER Gender Identity Not on file Sexual Orientation Not on file documented as of this encounter Plan of Treatment Not on file documented as of this encounter Procedures Procedure Name Priority Date/Time Associated Diagnosis Comments CT HEAD C-SPINE MAXILLOFACIAL WO CON Routine 06/02/2007 5:20 PM GLOBAL CLIMATE CHANGE RESEARCHER CT LUMBAR SPINE WO CONTRAST Routine 06/02/2007 5:20 PM GLOBAL CLIMATE CHANGE RESEARCHER CT THORACIC SPINE WO CONTRAST Routine 06/02/2007 5:20 PM GLOBAL CLIMATE CHANGE RESEARCHER CT CHEST ABDOMEN PELVIS W CONT Routine 06/02/2007 5:20 PM GLOBAL CLIMATE CHANGE RESEARCHER HCG QUANTITATIVE, BLOOD Routine 06/02/2007 3:41 PM GLOBAL CLIMATE CHANGE RESEARCHER CREATININE Routine 06/02/2007 3:41 PM GLOBAL CLIMATE CHANGE RESEARCHER documented in this encounter Results * CT LUMBAR SPINE WO CONTRAST (06/02/2007 5:20 PM GLOBAL CLIMATE CHANGE RESEARCHER) Anatomical Region Laterality Modality Spine Other 06/02/2007 5:20 PM GLOBAL CLIMATE CHANGE RESEARCHER Narrative 06/02/2007 7:00 PM GLOBAL CLIMATE CHANGE RESEARCHER [place] [address] [place], [place] [address] Admit Date: 06/02/2007 ARLETH FUNEZ Sex: F Admit Prov: ER, AUTHORIZED P Date: 1980 Primary Care Prov: [id number] [facility] CMRN: [id number] [facility]: [address] [place] [address] IMAGING SERVICES Ordering Prov: N/A Accession Number: [id number] Interpretation CT lumbar spine without contrast. 06/02/2007 [...] [facility] Procedure Note Phan Torres - 06/02/2007 [place] [address] [place], [place] [address] Admit Date: 06/02/2007 ARLETH FUNEZ Sex: F Admit Prov: ER, AUTHORIZED P Date:1980 Primary Care Prov: [id number] [facility] CMRN: [id number] Room: [facility] SSN: [address] [place] [address] IMAGING SERVICES Ordering Prov: N/A Interpretation CT [...] THORACIC SPINE WO CONTRAST (06/02/2007 5:20 PM GLOBAL CLIMATE CHANGE RESEARCHER) Anatomical Region Laterality Modality Spine Other 06/02/2007 5:20 PM GLOBAL CLIMATE CHANGE RESEARCHER Narrative 06/02/2007 7:00 PM GLOBAL CLIMATE CHANGE RESEARCHER [facility] [address] [place], [place] [address] Admit Date: 06/02/2007 DEE DEEARLETH Sex: F Admit Prov: ER, AUTHORIZED P Date: 1980 Primary Care Prov: [id number] -[facility] CMRN: [id number] Room: [facility] SSN: [id number] IMAGING SERVICES Ordering Prov: N/A Accession Number: [id number] Interpretation Exam: CT thoracic spine without contrast. [...] [facility]K Procedure Note Phan Torres - 06/02/2007 [facility] [address] [place], [place] [address] Admit Date: 06/02/2007 ARLETH FUNEZ Sex: F Admit Prov: ER, AUTHORIZED P Date:1980 Primary Care Prov: [id number] [facility] CMRN: [id number] [facility] [address] [place] [address] IMAGING SERVICES Ordering Prov: N/A Interpretation Exam: [...] C-SPINE MAXILLOFACIAL WO CON (06/02/2007 5:20 PM GLOBAL CLIMATE CHANGE RESEARCHER) Anatomical Region Laterality Modality Other 06/02/2007 5:20 PM GLOBAL CLIMATE CHANGE RESEARCHER Narrative 06/02/2007 7:00 PM GLOBAL CLIMATE CHANGE RESEARCHER [facility] [address] [place], [place] [address] Admit Date: 06/02/2007 ARLETH FUNEZ Sex: F Admit Prov: ER, AUTHORIZED P Date: 1980 Primary Care Prov: [id number] [facility] CMRN: [id number] Room: -A N: [address] [place] [address] IMAGING SERVICES Ordering Prov: N/A Accession Number: [id number] Interpretation Exam: CT of the head, cervical [...] [facility]K Procedure Note Phan Torres - 06/02/2007 [facility] [address] [place], [place] [address] Admit Date: 06/02/2007 ARLETH FUNEZ Sex: F Admit Prov: AMY DALTON Date:1980 Primary Care Prov: [id number] -[facility] CMRN: [id number] [facility] SS[facility]: [id number] IMAGING SERVICES Ordering Prov: N/A Interpretation Exam: [...] ABDOMEN PELVIS W CONT (06/02/2007 5:20 PM GLOBAL CLIMATE CHANGE RESEARCHER) Anatomical Region Laterality Modality Chest Other 06/02/2007 5:20 PM GLOBAL CLIMATE CHANGE RESEARCHER Narrative 06/02/2007 7:00 PM GLOBAL CLIMATE CHANGE RESEARCHER [facility] [address] [facility] [place], [place] [address] Admit Date: 06/02/2007 ARLETH FUNEZ Sex: F Admit Prov: ER, AUTHORIZED P Date: 1980 [facility] [id number] [facility] [id number] [facility]: [id number] IMAGING SERVICES Ordering Prov: N/A Accession Number: [id number] Interpretation Exam: CT of the chest, abdomen [...] AMK Procedure Note Phan Torres - 06/02/2007 [facility] [address] [place], [place] [address] Admit Date: 06/02/2007 ARLETH FUNEZ Sex: F Admit Prov: ER, AUTHORIZED P Date:1980 Primary Care Prov: [id number] -[facility], [facility] CMRN: [id number] Room: ER-A SSN: [id number] IMAGING SERVICES Ordering Prov: N/A Interpretation Exam: [...] BETA HCG QUANTITATIVE, BLOOD (06/02/2007 3:41 PM GLOBAL CLIMATE CHANGE RESEARCHER) HCG QUANT, BLOOD <5 0 - 5 [...] with other clinical evidence. 06/02/2007 3:41 PM GLOBAL CLIMATE CHANGE RESEARCHER Elias Green MD CHEMISTRY ORDERABLES [facility] Fadia marmolejo INTERFACE SYSTEM Refer to clinic/hospital department * CREATININE (06/02/2007 3:41 PM GLOBAL CLIMATE CHANGE RESEARCHER) CREATININE 0.56 0.51 - 0.95 mg/dL INTERFACE SYSTEM GFR, >60 >=60 mL/min/1.7 sq meter INTERFACE SYSTEM GFR >60 >=60 mL/min/1.7 sq meter INTERFACE SYSTEM Comment: Estimated GFR rate interpretative information for both Americans and non- Americans is available on the [facility] Intranet at: [email or web address] Select: Lab Policies and Procedures Select: Reference Ranges - GFR 06/02/2007 3:41 PM GLOBAL CLIMATE CHANGE RESEARCHER Elias Green MD CHEMISTRY ORDERABLES Final Re sult INTERFACE SYSTEM Refer to clinic/hospital department documented in this encounter Visit Diagnoses Not on filedocumented in this encounter
--- NOTE | 2024-08-08 21:24 | ED.GENADULT ---
HPI - General Adult General Chief complaint: Unspecified Stated complaint: left shoulder pain Time Seen by Provider: 08/08/24 20:10 Source: patient Mode of arrival: ambulatory Limitations: no limitations History of Present Illness HPI narrative: Patient is a 44-year-old female who presents the ED with report of left shoulder pain. Patient reports she has been having intermittent pain over the past 1 month in her left shoulder. Denies any fall or injury, states pain began after she feels she slept on her arm wrong. Pain worse with movement. She has been taking Tylenol for the pain. Has history of polycystic kidney disease and is unable to take NSAIDs. She states she was seen at an outside hospital last week and had a cardiac workup which was negative. Denies any numbness or tingling in extremity. Related Data Home Medications ?Medication ?Instructions ?Recorded ?Confirmed ?Last Taken ?Type carvedilol 25 mg tablet See Rx Instructions .Route .COMPLEX 11/04/23 11/29/23 Unknown History irbesartan 300 mg tablet 300 mg PO DAILY 11/04/23 11/29/23 Unknown History methimazole 5 mg tablet 5 mg PO DAILY 11/04/23 11/29/23 Unknown History omega-3 fatty acids PO 11/29/23 Unknown History Allergies Allergy/AdvReac Type Severity Reaction Status Date / Time bee venom protein (honey Allergy Swelling Verified 06/13/24 15:23 bee) (bees) Latex, Natural Rubber Allergy Unknown Verified 06/13/24 15:23 morphine Allergy Unknown Verified 06/13/24 15:23 Review of Systems Review of Systems: All systems reviewed & are unremarkable except as noted in HPI. All systems reviewed & are unremarkable except as noted in HPI and below PMFSH Past Medical History Medical History Bronchitis Migraine Stage 2 chronic kidney disease Kidney disease polycystic kidney disease Surgical History Surgical History Previous section History of tonsillectomy Family History Family History Mother Family history non-contributory Social History Social History Smoking status: Never smoker Alcohol use details: no alcohol Substance use: current Substance use type: marijuana Living arrangements: with family Gender identity (if verbalized by the patient): Female Exam Narrative: GENERAL: Well appearing, morbidly obese with BMI of 43.5, non-toxic, in no acute distress. HEAD: Normocephalic, atraumatic. RESPIRATORY: Airway patent, respirations nonlabored. CARDIOVASCULAR: Regular rate and rhythm. Radial pulses strong and easily palpable. MUSCULOSKELETAL: No gross deformities. Limited range of motion of left shoulder flexion and abduction past 75 degrees. Sensation intact throughout extremity. Tenderness to palpation over anterior and posterior left shoulder joints, along acromion. 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 SKIN: Warm, dry, normal color. NEURO: A&O X3. Speech clear. Cranial nerves II-XII grossly intact. Steady gait. No ataxic movements. PSYCHIATRIC: Appropriate mood and affect. Normal interaction. Course Vital Signs Vital signs: Vital Signs Temperature 98.1 F 08/08/24 18:58 Pulse Rate 112 H 08/08/24 18:58 Respiratory Rate 16 08/08/24 18:58 Blood Pressure 151/93 H 08/08/24 18:58 Pulse Oximetry 97 08/08/24 18:58 Temperature 98.1 F 08/08/24 18:58 Pulse Rate 112 H 08/08/24 18:58 Respiratory Rate 16 08/08/24 18:58 Blood Pressure 151/93 H 08/08/24 18:58 Pulse Oximetry 97 08/08/24 18:58 Medical Decision Making MDM Narrative Medical decision making narrative: Patient presented to ED with 1 month history of left shoulder pain. No known injury. Patient's injury is consistent with musculoskeletal etiology. No signs of neurologic or vascular compromise on physical examination. Compartments are soft without signs of compartment syndrome. Low suspicion for ACS. Patient with point tenderness over shoulder joint, reproducing pain. She reports she had a cardiac workup at an outside hospital within the last week which was negative. XR of left shoulder negative. Discussed possibility of rotator cuff muscle injury/strain/tendinitis. Patient provided with sling. Will be provided with short course of pain medication as well as a steroid pack as she is unable to take anti-inflammatories. Patient is felt to be stable for discharge home and further outpatient management and treatment. Will refer to orthopedics for further evaluation and management, discussed possibility of needing MRI to further evaluate shoulder. Discussed return precautions. Patient in agreement with plan. Discharged in stable condition. Medical Records Medical records reviewed: Yes I reviewed the external patient's medical records. Vital Signs Vital Signs: Vital Signs Temperature 98.1 F 08/08/24 18:58 Pulse Rate 112 H 08/08/24 18:58 Respiratory Rate 16 08/08/24 18:58 Blood Pressure 151/93 H 08/08/24 18:58 Pulse Oximetry 97 08/08/24 18:58 Temperature 98.1 F 08/08/24 18:58 Pulse Rate 112 H 08/08/24 18:58 Respiratory Rate 16 08/08/24 18:58 Blood Pressure 151/93 H 08/08/24 18:58 Pulse Oximetry 97 08/08/24 18:58 Imaging Data Attestation: I personally reviewed and interpreted this imaging study as follows: Radiologist's impression: ITS Impressions Shoulder X-Ray 08/08/24 20:46 IMPRESSION: No acute osseous abnormality left shoulder. Discharge Plan Discharge Clinical Impression: Strain of left shoulder Patient Disposition: Home Condition: Stable Instructions: Antibiotic Form, Rotator Cuff Injury (ED), Shoulder Sprain (ED) Additional Instructions: Utilize sling for comfort and support. Recommend frequent icing to shoulder. Limit heavy lifting. Take steroid pack as prescribed for anti-inflammatory effect. Continue Tylenol as needed for pain. Tramadol as needed for more severe pain. Take muscle relaxers as needed and prescribed. Recommend taking these at night as they may cause sedation. Do not drive, operate heavy machinery, drink alcohol while on muscle relaxers as this may cause further sedation. Caution use of tramadol with muscle relaxers as these can both cause sedation. Follow-up with orthopedics for further evaluation. Call office to make appointment. Return to an ED if you experience worsening or severe pain, severe chest pain, difficulty breathing, numbness, injury to arm, or any other symptoms of concern. Patient Language: Venezuelan Prescriptions: New tramadol 50 mg tablet 50 mg PO Q6H PRN (Reason: pain) Qty: 10 0RF methylprednisolone [Medrol (Alex)] 4 mg tablets,dose pack See Rx Instructions PO .COMPLEX Qty: 21 0RF Rx Instructions: orally per package directions cyclobenzaprine 5 mg tablet 5 mg PO TID PRN (Reason: muscle spasm) Qty: 6 0RF No Action Fish Oil Capsule PO prednisone 50 mg tablet 50 mg PO DAILY Qty: 5 0RF carvedilol 25 mg tablet See Rx Instructions .ROUTE .COMPLEX Rx Instructions: as prescribed irbesartan 300 mg tablet 300 mg PO DAILY methimazole 5 mg tablet 5 mg PO DAILY Follow-up/Referrals: Anh,MD Vito [Primary Care Provider] - Harrison Jean-Baptiste MD [Physician] - (ORTHOPEDICS) Time of Disposition: 21:35
[2024-08-08 21:30] VITALS: BP 146/86; PULSE 98; RESP 20; TEMP 36.6; O2SAT 100
[2024-08-08] MEDS: traMADol HCL (*CRX) 50 MG TABLET PO (21:35)
== END 2024-08-08 21:55 | disposition home or self-care (01) ==
PROVIDERS: Emergency Provider Physician Assistant; PCP Internal Medicine
DX: S46.912A Strain of unspecified muscle, fascia and tendon at shoulder and upper arm level, left arm, initial encounter (principal); N18.2 Chronic kidney disease, stage 2 (mild)
CPT/HCPCS: 73030; 99283; A4565; A9270

== ENCOUNTER 2024-12-23 15:36 | Emergency (ER) | payer OTHER, SELFPAY ==
--- NOTE | 2024-12-23 15:42 | ED_ITS ---
HPI - Nausea/Vomiting/Diarrhea General Chief complaint: Abdominal Pain Stated complaint: Vomiting/Diarrhea Time Seen by Provider: 12/23/24 16:12 Source: patient and RN notes reviewed Mode of arrival: ambulatory Limitations: no limitations History of Present Illness HPI Narrative: 44-year-old female with history of polycystic kidney disease presents with concern for epigastric discomfort, nausea, vomiting, diarrhea and belching. She reports she has belching and nausea for several months but the other symptoms are new in the past 2 days. She vomited today. She had diarrhea this morning. She is not able to take [id number] medications because of her kidney disease. MD elicited complaint: nausea, vomiting and diarrhea Related Data Home Medications ?Medication ?Instructions ?Recorded ?Confirmed ?Last Taken ?Type carvedilol 25 mg tablet See Rx Instructions .Route . COMPLEX 11/04/23 11/29/23 Unknown History irbesartan 300 mg tablet 300 mg PO DAILY 11/04/2301/13 Unknown History methimazole 5 mg tablet 5 mg PO DAILY 11/04/2311/28 Unknown History omega-3 fatty acids PO 11/29/23 Unknown History Allergies Allergy/AdvReac Type Severity Reaction Status Date / Time morphine Allergy Severe Anaphylactic Verified 12/23/24 15:55 Shock bee venom protein (honey Allergy Swelling Verified 12/23/24 15:55 bee) (bees) Latex, Natural Rubber Allergy Unknown Verified 12/23/24 15:55 Review of Systems Review of Systems: CONSTITUTIONAL: Denies malaise, chills, sweats, or fever. ENT: Denies rhinorrhea, congestion, sinus pain, otalgia or sore throat. CARDIOVASCULAR: Denies chest pain, palpitations, or edema. RESPIRATORY: Denies cough or dyspnea. GASTROINTESTINAL: Reports epigastric pain, nausea, vomiting, diarrhea GENITOURINARY: Denies dysuria or hematuria. MUSCULOSKELETAL: Denies myalgia. NEUROLOGIC: Denies headache. All systems reviewed & are unremarkable except as noted in HPI and below PMFSH Past Medical History Medical History Bronchitis Migraine Stage 2 chronic kidney disease Kidney disease polycystic kidney disease Surgical History Surgical History Previous section History of tonsillectomy Family History Family History Mother Family history non-contributory Social History Social History Smoking status: Never smoker Alcohol use details: no alcohol Substance use: current Substance use type: marijuana Living arrangements: with family Gender identity (if verbalized by the patient): Female Comments At time of signature, agree with nursing past medical, surgical, social and family history. There is no relevant family history pertinent to the presenting complaint Exam Narrative: GENERAL: Well-appearing, well-nourished, and in no acute distress. HEAD: Normocephalic, atraumatic. EYES: PERRLA, conjunctivae clear, and EOMI. ENT: Nares clear, turbinates pink, no rhinorrhea or epistaxis. Mucous membranes moist. Oropharynx without edema, erythema, or lesions. Tonsils not enlarged and without exudate. NECK: Supple. No lymphadenopathy CHEST: Speaks in full sentences. No respiratory distress. HEART: Regular rate and rhythm. ABDOMEN: Obese. Upper abdominal tenderness. No guarding, rebound tenderness, or rigidity. No pulsatile masses. Bowel sounds present in all four quadrants. SKIN: Warm, dry, no rash. NEURO: Alert and oriented x3. PSYCH: Normal mood and affect Course Course Emergency Course: Patient is aware of, understands and agrees to treatment plan. Anticipatory guidance given. Patient agrees to follow-up as directed and is aware of reasons to seek care at the emergency department. Portions of this record may have been created with voice recognition software Level of Care: Express Care Visit Vital Signs Vital signs: Reviewed. MDM - Nausea/Vomiting/Diarrhea MDM Narrative Medical decision making narrative: I evaluated this patient in the express care. History is obtained from patient who is an independent historian and physical exam was performed.? Available medical records were reviewed. ? Exam findings and relevant testing show no acute concerns or changes; patient is non-toxic appearing and is in no distress. ? Differential diagnosis and treatment plan were discussed with the patient. Patient agrees with discussion and after shared medical decision making agrees with plan of care. All questions were answered to the patient's satisfaction. Patient is appropriate for outpatient treatment and follow-up. Critical Care Time Critical Care Time Critical Care Time: No Discharge Plan Discharge Clinical Impression: Nausea and vomiting, Indigestion Patient Disposition: Home Condition: Stable Instructions: Diet for Stomach Ulcers and Gastritis (ED) Additional Instructions: Zofran and simethicone (gas-x) should be safe to take with your kidney disease. Check with your doctor to be sure. Stay hydrated. Take small sips of fluid containing electrolytes frequently. You should go to the hospital if you experience persistent nausea and vomiting that does not resolve and does not allow you to tolerate any food or fluids, persistent fevers for greater than 2-3 more days, increasing abdominal pain that persists despite medications, persistent diarrhea, dizziness, syncope (fainting), or for any other concerns. Please follow-up with your primary care doctor as needed or gastroenterology for evaluation of your chronic symptoms. Patient Language: French Prescriptions: New ondansetron 4 mg tablet,disintegrating 4 mg PO Q8H PRN (Reason: nausea and vomiting) Qty: 10 0RF No Action Fish Oil Capsule PO carvedilol 25 mg tablet See Rx Instructions .ROUTE .COMPLEX Rx Instructions: as prescribed irbesartan 300 mg tablet 300 mg PO DAILY methimazole 5 mg tablet 5 mg PO DAILY Follow-up/Referrals: PHYSICIAN,BOWLING OR SKATING FRONT DESK CLERK [Primary Care Provider, Internal Medicine] Stand Alone Forms: Work/School Release IP Time of Disposition: 16:26
[2024-12-23 15:49] VITALS: BP 148/82; PULSE 91; RESP 18; TEMP 36.6; O2SAT 98
--- OUTSIDE RECORDS SUMMARY | 2024-12-23 16:57 | XMS_ITS | Encounter Summary ---
Author Organization [employer] Address [address] [place] [address] Care Team Providers Care Hanger Off Name Role Phone Unavailable Primary Care Provider Unavailabl e Encounter Details Date Type Department Care Team (Late st Contact Info) Description 08/06/2005 Emergency [facility] Taj Argueta MD [address] 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
--- OUTSIDE RECORDS SUMMARY | 2024-12-23 16:57 | XMS_ITS | Clinical Summary ---
Author Organization [facility] Facility Address [address] [address] Care Team Providers Care Safety Instruction Police Officer Name Role Phone Vito Kamara MD Primary Care Provider [phone] Allergies Active Allergy Reactions Criticality Noted Date Comments Tolvaptan 12/17/2022 Patient became violently ill with vomiting and diarrhea and the medication had to be stopped after 5 days of use Morphine And Codeine Palpitations Medium 06/10/2023 Medications methIMAzole (TAPAZOLE) 5 MG tablet Take 5 mg by mouth in the morning and 5 mg in the evening and 5 mg before bedtime. Active omega-3 (FISH OIL) 1000 MG capsule Take 1,000 mg by mouth 1 (one) time each day Active carvedilol (COREG) 25 MG tablet Take 25 mg by mouth 1 (one) time each day Active Levonorgestrel (Mirena, 52 MG,) 20 MCG/DAY intrauterine device by Intrauterine route Active saccharomyces boulardii (FLORASTOR) 250 MG capsule Take 250 mg by mouth in the morning and 250 mg in the evening. 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 [address] [facility] [address] [place] [address] Maura Rosado MA Hypertension from Last 3 Months Immunizations Immunization Administration Dates Next Due Tdap [...] Sign Reading Time Taken Comments Blood Pressure 114/68 08/11/2024 9:56 AM CDT Pulse 96 08/11/2024 9:56 AM CDT Temperature 36.7 C (98 F) 08/11/2024 9:56 AM CDT Respiratory Rate - - Oxygen Saturation 96% 08/11/2024 9:56 AM CDT Inhaled Oxygen Concentration - - Weight 135 kg (297 lb) 08/11/2024 9:56 AM CDT Height 170.2 cm (5' 7) 08/11/2024 9:56 AM CDT Body Mass Index 46.52 08/11/2024 9:56 AM CDT Plan of Treatment Upcoming Encounters Date Type Department Care Team (Late st Contact Info) Description 08/10/2025 9:30 AM CDT Office Visit [facility] Maurisio. [address] [facility] [place] [address] Seferino Morton MD [address] [place] [address] [place] [address] Health Maintenance Due Date Last Done Comments Hepatitis B Vaccine (1 of 3 - 19+ 3-dose series) 03/11 Pneumococcal Vaccine: Peds ( 0 to 5 Years) and At-Risk Patients (6 to 49 Years) (1 of 2 - PCV) 2000 Influenza Vaccine (#1) [address] [place] [address] Care Teams Safety Instruction Police Officer Relationship Specialty Start Date End Date Vito Kamara MD [address] [place] [address] PCP - General Internal Medicine 11/20/18
--- OUTSIDE RECORDS SUMMARY | 2024-12-23 16:57 | XMS_ITS | Encounter Summary ---
Author Organization [employer] [facility] Address [address] [place] [address] Care Team Providers Care Dog Pound Attendant Name Role Phone Unavailable Primary Care Provider Unavailabl e Encounter Details Date Type Department Care Team (Late st Contact Info) Description 04/08/1998 Emergency [facility] STJusto Dumont MD [address] [facility] [place] [address] Er, Authorized P NO ADDRESS ON FILE Contusion of abdominal wall (Primary Dx) Social History Tobacco Use Types Packs/Day Years Used Date Smoking Tobacco: Never Assessed Comments Unknown Sex and Gender Information Value Date Recorded Sex Assigned at Not on file Legal Sex Female 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
--- OUTSIDE RECORDS SUMMARY | 2024-12-23 16:57 | XMS_ITS | Clinical Summary ---
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
--- OUTSIDE RECORDS SUMMARY | 2024-12-23 16:57 | XMS_ITS | Clinical Summary ---
Author Organization [facility] Address [address] [place] [address] Phone Care Team Providers Care Cmo Name Role Phone Phan Calderón MD Unavailable [phone] Vito Kamara MD Primary Care Provider [phone] Allergies Active Allergy Reactions Criticality Noted Date [...] Comments Not Currently Male split with par tner in march. Comments No Sex and Gender [...] 9:10 PM CDT Height 170.2 cm (5' 7) 12/28/2023 9:10 PM CDT Body Mass Index 44.64 12/28/2023 9:10 PM CDT Plan of Treatment Health Maintenance Due Date Last Done Comments Hepatitis C Virus (HCV) Screening 1981 Mammogram 1981 Hepatitis B Immunization (1 of 3 - 19+ 3-dose series) 2000 Pap Smear 2002 Human Papillomavirus (HPV) Immunization (1 - 3-dose SCDM series) 2008 Cervical Cancer Screening (CCS) 2011 HPV/Cotest 2011 Discussion re Starting/Frequ ency of Mammograms 2021 Influenza Immunization (#1) 2024 SARS-COV-2 Immunization ( season) 2024 Td Immunization Every 10 Yea rs (Adults With 1 Tdap) 10/15/2025 10/16/2015 Respiratory Syncytial Virus (RSV) Immunization (Adult) (1 - 1-dose 75+ series) 2056 DTaP/Tdap/Td Immunization Discontinued 10/16/2015 Meningococcal Immunization (ACWY) Aged Out No longer eligible based on patient's age to complete this topic Pneumococcal Immunization Combined Aged Out No longer eligible based on [...] now to know Department associated with goal: [facility] Steps to achieve [...] making a change Department associated with goal: [facility] Steps to achieve goal: will identify at least two personal goals per week. will identify and begin implementing at least two action steps to work toward personal goals. will identify and begin implementing at least one skill/activity/habit to improve motivation Insurance MEDICAID [facility] PL[facility] Advance Directives * Full [...] measures to stabilize the patient. Care Teams Cmo Relationship Specialty Start Date End Date Vito Kamara MD [address] [facility] [address] [place] [address] PCP - General Internal Medicine 08/05/18 Phan Calderón MD [address] [place] [address] Neurology 12/12/12
--- OUTSIDE RECORDS SUMMARY | 2024-12-23 16:57 | XMS_ITS | Encounter Summary ---
Author Organization [facility] Address [address] [place] [address] Care Team Providers Care Soot Blower Name Role Phone Seferino Morton MD Unavailable [phone] Vito Kamara MD Primary Care Provider [phone] Encounter Details Date Type Department Care Team (Late st Contact Info) Description 11/09/2024 Results Follow-Up [facility] Sports Medicine and Primary Care at [address] [place] [id number] Michelle Iverson MA MRI Cervical Spine WO Contrast Social History Tobacco Use Types Packs/Day Years [...] on file Legal Sex Female 2:34 AM RUBBER FACTORY WORKER Gender Identity Female 02/23/2020 2:45 PM RUBBER FACTORY WORKER Sexual Orientation Straight 02/23/2020 2: 45 PM RUBBER FACTORY WORKER documented as of this encounter Plan of Treatment Not on file documented as of this encounter Visit Diagnoses Not on filedocumented in this encounter Additional Health Concerns Infection Onset Date Last Indicated Resolved Time COVID: Suspected 11/15/2024 11/15/2024 11/15/2024 3:41 PM CDT documented as of this encounter Care Teams Soot Blower Relationship Specialty Start Date End Date Vito Kamara MD [address] [place] [address] PCP - General Internal Medicine 07/09/19 Seferino Morton MD Consulting Physician Nephrology 07/09/19 documented as of this encounter
--- OUTSIDE RECORDS SUMMARY | 2024-12-23 16:57 | XMS_ITS | Encounter Summary ---
Author Organization [employer] Address 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
--- OUTSIDE RECORDS SUMMARY | 2024-12-23 16:57 | XMS_ITS | Encounter Summary ---
Author Organization [employer] Address [address] [place] [address] Care Team Providers Care Storekeeper Engineering Name Role Phone Unavailable Primary Care Provider Unavailabl e Encounter Details Date Type Department Care Team (Late st Contact Info) Description 01/09/2008 Outpatient Historical [facility] Rosa Reyes MD [address] [place] [address] Irregular Menstrual Cycle Social History Tobacco Use Types Packs/Day Years Used Date Smoking Tobacco: Never Assessed Comments Unknown Sex and Gender Information Value Date Recorded Sex Assigned at Not on file Legal Sex Female 2:39 AM WAYBILL CLERK Gender Identity Not on file Sexual [...] QUANT, BLOOD 140(H) 0 - 5 mIU/mL [facility] Comment: Result of 5 - 25 [...] - 01/12/2008 10:40 AM CDT faxed to [phone] 01/12/08 10:40 AM ve Rosa Reyes MD CHEMISTRY ORDERABLES Edited INTERFACE SYSTEM Refer to clinic/hospital department [facility] CLIA# [id number] [facility] [place] [address] * PROGESTERONE (01/09/2008 4:20 PM CDT) PROGESTERONE 0.8 ng/mL [facility] Comment: Progesterone Reference Range: Female: Normally Menstruating Female Follicular Phase 0.2 - 1.5 ng/mL Ovulation Phase 0.8 - 3.0 ng/mL Luteal Phase 1.7 - 27.0 ng/mL Postmenopausal 0.1 - 0.8 ng/mL No Pediatric Reference Range Available. Blood specimen (specimen) 01/09/2008 4:20 PM CDT 01/09/2008 4:39 PM CDT us Rosa Reyes MD CHEMISTRY ORDERABLES Final Re sult INTERFACE SYSTEM Refer to clinic/hospital department [facility] CLIA# [id number] [address] [place] [address] documented in this encounter Visit Diagnoses Diagnosis Irregular menstrual cycle documented in this encounter
--- OUTSIDE RECORDS SUMMARY | 2024-12-23 16:57 | XMS_ITS | Encounter Summary ---
Author Organization [facility] [facility] Address 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
--- OUTSIDE RECORDS SUMMARY | 2024-12-23 16:57 | XMS_ITS | Encounter Summary ---
Author Organization [employer] Address [address] [place] [address] Care Team Providers Care Real Estate Asset Manager Name Role Phone Unavailable Primary Care Provider Unavailabl e Encounter Details Date Type Department Care Team (Late st Contact Info) Description 06/02/2007 Emergency [facility] [place], Authorized P NO ADDRESS ON FILE Elias Green MD [address] [place] [address] Social History Tobacco Use Types Packs/Day Years Used Date Smoking Tobacco: Never Assessed Comments Unknown Sex and Gender Information Value Date Recorded Sex Assigned at Not on file Legal Sex Female 2:39 AM DIRECTOR OF INFORMATICS Gender Identity Not on file Sexual Orientation Not on file documented as of this encounter Plan of Treatment Not on file documented as of this encounter Procedures Procedure Name Priority Date/Time Associated Diagnosis Comments CT HEAD C-SPINE MAXILLOFACIAL WO CON Routine 06/02/2007 5:20 PM DIRECT[address] INFORMATICS CT LUMBAR SPINE WO CONTRAST Routine 06/02/2007 5:20 PM [address] INFORMATICS [address] THORACIC SPINE WO CONTRAST Routine 06/02/2007 5:20 [address] CHEST ABDOMEN PELVIS W CONT Routine 06/02/2007 5:20 PM DIRECTOR OF INFORMATICS HCG QUANTITATIVE, BLOOD Routine 06/02/2007 3:41 PM DIRECTOR OF INFORMATICS CREATININE Routine 06/02/2007 3:41 PM DIRECTOR OF INFORMATICS documented in this encounter Results * CT LUMBAR SPINE WO CONTRAST (06/02/2007 5:20 PM DIRECTOR OF INFORMATICS) Anatomical Region Laterality Modality Spine Other 06/02/2007 5:20 PM DIRECTOR OF INFORMATICS Narrative 06/02/2007 7:00 PM DIRECTOR OF INFORMATICS [place] [id number] [place], [place] [address] Admit Date: 06/02/2007 ARLETH FUNEZ Sex: F Admit Prov: ER, AUTHORIZED P Date: 1980 Primary Care Prov: [id number] [facility] CMRN: [id number] [facility] [address] [place] [address] IMAGING SERVICES Ordering Prov: N/A Accession Number: [id number] Interpretation CT lumbar spine without contrast. 06/02/2007 [...] AMK Procedure Note Phan Torres - 06/02/2007 [place] [id number] [place], [place] [address] Admit Date: 06/02/2007 ARLETH FUNEZ Sex: F Admit Prov: ER, AUTHORIZED P Date:1980 Primary Care Prov: [id number] [facility] CMRN: [id number] [facility] [address] [place] [address] IMAGING SERVICES Ordering Prov: N/A Interpretation CT [...] THORACIC SPINE WO CONTRAST (06/02/2007 5:20 PM DIRECTOR OF INFORMATICS) Anatomical Region Laterality Modality Spine Other 06/02/2007 5:20 PM DIRECTOR OF INFORMATICS Narrative 06/02/2007 7:00 PM DIRECTOR OF INFORMATICS [facility] [address], [place] [address] Admit Date: 06/02/2007 DEE DEEARLETH Sex: F Admit Prov: ER, AUTHORIZED P Date: 1980 Primary Care Prov: [id number] -[facility] CMRN: [id number] Room: [facility] SSN: [id number] IMAGING SERVICES Ordering Prov: N/A Accession Number: [id number] Interpretation Exam: CT thoracic spine without contrast. [...] 18:13 AMK Procedure Note Phan Torres - 02/11/2008 [facility] [address] [place], [place] [address] Admit Date: 06/02/2007 ARLETH FUNEZ Sex: F Admit Prov: ER, AUTHORIZED P Date:1980 Primary Care Prov: [id number] [facility] CMRN: [id number] [facility] [address] [place] [address] IMAGING SERVICES Ordering Prov: N/A Interpretation Exam: [...] C-SPINE MAXILLOFACIAL WO CON (06/02/2007 5:20 PM DIRECTOR OF INFORMATICS) Anatomical Region Laterality Modality Other 06/02/2007 5:20 PM DIRECTOR OF INFORMATICS Narrative 06/02/2007 7:00 PM DIRECTOR OF INFORMATICS [facility] [address] [place], [place] [address] Admit Date: 06/02/2007 ARLETH FUNEZ Sex: F Admit Prov: ER, AUTHORIZED P Date: 1980 Primary Care Prov: [id number] [facility] CMRN: [id number] Room: -A N: [address] [place] [address] IMAGING SERVICES Ordering Prov: N/A Accession Number: [id number] Interpretation Exam: CT of the head, cervical [...] AMK Procedure Note Phan Torres - 06/02/2007 [facility] [address] [place], [place] [address] Admit Date: 06/02/2007 ARLETH FUNEZ Sex: F Admit Prov: AMY [place] Date:1980 Primary Care Prov: [id number] [facility] CMR[facility]: [id number] Room: -A SSN: [id number] IMAGING SERVICES Ordering Prov: N/A Interpretation Exam: [...] ABDOMEN PELVIS W CONT (06/02/2007 5:20 PM DIRECTOR OF INFORMATICS) Anatomical Region Laterality Modality Chest Other 06/02/2007 5:20 PM DIRECTOR OF INFORMATICS Narrative 06/02/2007 7:00 PM DIRECTOR OF INFORMATICS [facility] [address] [place], [place] [address] Admit Date: 06/02/2007 ARLETH FUNEZ Sex: F Admit Prov: ER, AUTHORIZED P Date: 1980 [facility] [id number] [facility]: [id number] [facility]: [id number] IMAGING SERVICES Ordering Prov: N/A Accession Number: [id number] Interpretation Exam: CT of the chest, abdomen [...] AMK Procedure Note Phan Torres - 06/02/2007 [facility] [address] [place], [place] [address] Admit Date: 06/02/2007 ARLETH FUNEZ Sex: F Admit Prov: ER, AUTHORIZED P Date:1980 Primary Care Prov: [id number] [facility] CMRN: [id number] Room: ER-A SSN: [id number] IMAGING SERVICES Ordering Prov: N/A Interpretation Exam: [...] BETA HCG QUANTITATIVE, BLOOD (06/02/2007 3:41 PM DIRECTOR OF INFORMATICS) HCG QUANT, BLOOD <5 0 - 5 [...] with other clinical evidence. 06/02/2007 3:41 PM DIRECTOR OF INFORMATICS Elias Green MD CHEMISTRY ORDERABLES Final Fadia marmolejo INTERFACE SYSTEM Refer to clinic/hospital department * CREATININE (06/02/2007 3:41 PM DIRECTOR OF INFORMATICS) CREATININE 0.56 0.51 - 0.95 mg/dL INTERFACE SYSTEM GFR, >60 >=60 mL/min/1.7 sq meter INTERFACE SYSTEM GFR >60 >=60 mL/min/1.7 sq meter INTERFACE SYSTEM Comment: Estimated GFR rate interpretative information for both Americans and non- Americans is available on the [facility] Intranet at: [email or web address] Select: Lab Policies and Procedures Select: Reference Ranges - GFR 06/02/2007 3:41 PM DIRECTOR OF INFORMATICS Elias Green MD CHEMISTRY ORDERABLES Final Re sult INTERFACE SYSTEM Refer to clinic/hospital department documented in this encounter Visit Diagnoses Not on filedocumented in this encounter
--- OUTSIDE RECORDS SUMMARY | 2024-12-23 16:57 | XMS_ITS | Encounter Summary ---
Author Organization [employer] Address [address] [place] [address] Care Team Providers Care Channeler Outsole Name Role Phone Unavailable Primary Care Provider Unavailabl e Encounter Details Date Type Department Care Team (Late st Contact Info) Description 01/14/2008 Outpatient Historical [facility] Rosa Reyes MD [address] [place] [address] Missed Social History Tobacco Use Types Packs/Day Years Used Date Smoking Tobacco: Never Assessed Comments Unknown Sex and Gender Information Value Date Recorded Sex Assigned at Not on file Legal Sex Female 2:39 AM EQUINE INTERNSHIP Gender Identity Not on file Sexual Orientation [...] QUANT, BLOOD 10(H) 0 - 5 mIU/mL [facility] Comment: Result of 5 - [...] to clinic/hospital department [facility] CLIA# [id number] [address] [place] [address] documented in this encounter Visit Diagnoses Diagnosis Missed documented in this encounter
--- OUTSIDE RECORDS SUMMARY | 2024-12-23 16:57 | XMS_ITS | Clinical Summary ---
Author Organization [facility] [employer] Address [address] [place] [address] Care Team Providers Care Pharmacist Aide Name Role Phone Unavailable Primary Care Provider Unavailabl e Source Comments [facility],non-owned Affiliates and Associated Physician Practices is amultiple site organization consisting of ambulatory clinics and hospital sitesin [place], [place], [place] and [place]. This disclosure is being madepursuant to the Care Everywhere program and may not contain all information available regarding this patient. Last updated 18.[facility] [employer] Allergies Active Allergy Reactions Criticality Noted Date [...] on file Legal Sex Female 5:51 AM SCHOOL COMMISSIONER Gender Identity Not on file Sexual Orientation Not on file Last Filed Vital Signs Vital Sign Reading Time Taken Comments Blood Pressure 122/70 06/20/2015 2:44 PM SCHOOL COMMISSIONER Pulse - - Temperature 36.6 C (97.9 F) 06/20/2015 8:47 AM SCHOOL COMMISSIONER Respiratory Rate 18 06/20/2015 2:44 PM SCHOOL COMMISSIONER Oxygen Saturation 100% 06/19/2015 7:40 PM SCHOOL COMMISSIONER Inhaled Oxygen Concentration - - Weight 112.5 kg (248 lb) 06/20/2015 2:00 PM SCHOOL COMMISSIONER Height 170.2 cm (5' 7) 06/20/2015 2:00 PM SCHOOL COMMISSIONER Body Mass Index 38.84 06/20/2015 2:00 PM SCHOOL COMMISSIONER Plan of Treatment Health Maintenance Due Date Last Done Comments LIPID TESTING 1980 MAMMOGRAM 1980 HIV SCREENING 1996 HEPATITIS C SCREENING 03/07/1999 DTAP/TDAP/TD VACCINES (1 - Tdap) 2000 HEPATITIS B VACCINE (1 of 3 - 19+ 3-dose series) 2000 HPV VACCINE (1 - 3-dose SCDM series) 2008 DEPRESSION SCREENING 04/22/2024 COVID-19 VACCINE (1 - 2023-2 5 season) 2024 INFLUENZA VACCINE (#1) 2024 ZOSTER VACCINE (1 of 2) 2031 [...]
--- OUTSIDE RECORDS SUMMARY | 2024-12-23 16:57 | XMS_ITS | Encounter Summary ---
Author Organization [employer] Address [address] [place] [address] Care Team Providers Care In School Suspension Aide Name Role Phone Unavailable Primary Care Provider Unavailabl e Encounter Details Date Type Department Care Team (Latest Contact Info) Description 02/24/2006 Outpatient Historical [facility] Haris Whiting MD [address] [place] [address] Rosa Reyes MD [address] [place] [address] Other Current Maternal Conditions Classifiable Elsewhere, Antepartum (Primary Dx) Social History Tobacco Use Types Packs/Day Years Used Date Smoking Tobacco: Never Assessed Comments Unknown Sex and Gender Information Value Date Recorded Sex Assigned at Not on file Legal Sex Female 2:39 AM DENTAL MECHANIC Gender Identity Not on file Sexual Orientation Not on file documented as of this encounter Plan of Treatment Not on file documented as of this encounter Procedures Procedure Name Priority Date/Time Associated Diagnosis Comments CBC WITH DIFFERENTIAL Routine 02/24/2006 3:00 PM DENTAL MECHANIC CBC WITH DIFFERENTIAL Routine 02/24/2006 3:00 PM DENTAL MECHANIC URINALYSIS W/REFLEX MICROSCOPIC Routine 02/24/2006 2:56 PM DENTAL MECHANIC documented in this encounter Results * (ABNORMAL) CBC WITH DIFFERENTIAL (02/24/2006 3:00 PM DENTAL MECHANIC) NEUTROPHILS 76(H) 45 - 70 % INTERFAC [...] 0.20 K/uL INTERFACE SYSTEM 02/24/2006 3:00 PM DENTAL MECHANIC Rosa Reyes MD HEMATOLOGY ORDERABLES Final R esult Performing Organization Address [facility] Phone Number INTERFACE SYSTEM Refer to clinic/hospital department * (ABNORMAL) CBC WITH DIFFERENTIAL (02/24/2006 3:00 PM DENTAL MECHANIC) WBC 9.9(H) 4.0 - 9.8 K/uL INTERFACE [...] 12.4 fL INTERFACE SYSTEM 02/24/2006 3:00 PM DENTAL MECHANIC Rosa Reyes MD HEMATOLOGY ORDERABLES Final R esult Performing Organization Address [facility] de Phone Number INTERFACE SYSTEM Refer to clinic/hospital department * URINALYSIS (02/24/2006 2:56 PM DENTAL MECHANIC) COLOR UA Yellow INTERFACE SYSTEM CLARITY UA [...] Negative Negative INTERFACE SYSTEM 02/24/2006 2:56 PM DENTAL MECHANIC Rosa Reyes MD URINE ORDERABLES Final Result INTERFACE SYSTEM Refer to clinic/hospital department documented in this encounter Visit Diagnoses Diagnosis Other current maternal conditions classifiable elsewhere, antepartum- Primary documented in this encounter
--- OUTSIDE RECORDS SUMMARY | 2024-12-23 16:57 | XMS_ITS | Encounter Summary ---
Author Organization [employer] Address [address] [place] [address] Care Team Providers Care Senior Qa Analyst Name Role Phone Unavailable Primary Care Provider Unavailabl e Encounter Details Date Type Department Care Team (Latest Contact Info) Description 03/06/2006 Inpatient Historical [facility] Rosa Reyes MD [address] [place] [address] Abnormality in Heart Rate/Rhythm, Delivered (Primary Dx) Social History Tobacco Use Types Packs/Day Years Used Date Smoking Tobacco: Never Assessed Comments Unknown Sex and Gender Information Value Date Recorded Sex Assigned at Not on file Legal Sex Female 2:39 AM WHEEL WORKER Gender Identity Not on file Sexual Orientation Not on file documented as of this encounter Plan of Treatment Not on file documented as of this encounter Procedures Procedure Name Priority Date/Time Associated Diagnosis Comments CBC WITH DIFFERENTIAL Routine 03/08/2006 4:25 AM WHEEL WORKER CBC WITH DIFFERENTIAL Routine 03/08/2006 4:25 AM WHEEL WORKER CBC WITH DIFFERENTIAL Routine 03/06/2006 6:22 AM WHEEL WORKER CBC WITH DIFFERENTIAL Routine 03/06/2006 6:22 AM WHEEL WORKER documented in this encounter Results * (ABNORMAL) CBC WITH DIFFERENTIAL (03/08/2006 4:25 AM WHEEL WORKER) NEUTROPHILS 71(H) 45 - 70 % INTERFAC [...] 0.20 K/uL INTERFACE SYSTEM 03/08/2006 4:25 AM WHEEL WORKER Rosa Reyes MD HEMATOLOGY ORDERABLES Final R esult Performing Organization Address [facility] Co de Phone Number INTERFACE SYSTEM Refer to clinic/hospital department * (ABNORMAL) CBC WITH DIFFERENTIAL (03/08/2006 4:25 AM WHEEL WORKER) WBC 11.1(H) 4.0 - 9.8 K/uL INTERFACE [...] 12.4 fL INTERFACE SYSTEM 03/08/2006 4:25 AM WHEEL WORKER Rosa Reyes MD HEMATOLOGY ORDERABLES Final R esult INTERFACE SYSTEM Refer to clinic/hospital department * (ABNORMAL) CBC WITH DIFFERENTIAL (03/06/2006 6:22 AM WHEEL WORKER) NEUTROPHILS 72(H) 45 - 70 % INTERFAC [...] 0.20 K/uL INTERFACE SYSTEM 03/06/2006 6:22 AM WHEEL WORKER Rosa Reyes MD HEMATOLOGY ORDERABLES Final R esult Performing Organization Address [facility] de Phone Number INTERFACE SYSTEM Refer to clinic/hospital department * (ABNORMAL) CBC WITH DIFFERENTIAL (03/06/2006 6:22 AM WHEEL WORKER) WBC 9.6 4.0 - 9.8 K/uL INTERFACE [...] 12.4 fL INTERFACE SYSTEM 03/06/2006 6:22 AM WHEEL WORKER Rosa Reyes MD HEMATOLOGY ORDERABLES Final R esult Performing Organization Address [facility] de Phone Number INTERFACE SYSTEM Refer to clinic/hospital department documented in this encounter Visit Diagnoses Diagnosis Abnormality in heart rate/rhythm, delivered, with or without mention of antepartum condition- Primary documented in this encounter
--- OUTSIDE RECORDS SUMMARY | 2024-12-23 16:57 | XMS_ITS | Encounter Summary ---
Author Organization [employer] Address [address] [place] [address] Care Team Providers Care Trim And Burr Operator Name Role Phone Unavailable Primary Care Provider Unavailabl e Encounter Details Date Type Department Care Team (Latest Contact Info) Description 09/30/2005 Outpatient Historical HIS PATIENT IN A BED Rosa Reyes MD [address] [place] [address] Other Current Maternal Conditions Classifiable Elsewhere, Antepartum (Primary Dx) Social History Tobacco Use Types Packs/Day Years Used Date Smoking Tobacco: Never Assessed Comments Unknown Sex and Gender Information Value Date Recorded Sex Assigned at Not on file Legal Sex Female 2:39 AM MEDICAL RECORDS CLERK Gender Identity Not on file Sexual Orientation Not on file documented as of this encounter Plan of Treatment Not on file documented as of this encounter Visit Diagnoses Diagnosis Other current maternal conditions classifiable elsewhere, antepartum- Primary documented in this encounter
--- OUTSIDE RECORDS SUMMARY | 2024-12-23 16:57 | XMS_ITS | Clinical Summary ---
Author Organization [facility] Address [address] [place] [id number] Care Team Providers Care Family Practice Doctor Name Role Phone Seferino Morton MD Unavailable [phone] Vito Kamara MD Primary Care Provider [phone] Allergies Active Allergy Reactions Criticality Noted Date Comments Latex Other (See comments),Rash Medium 06/07/2015 Reaction: Break out Morphine Anaphylaxis,Palpitat ion s High 06/10/2023 Tolvaptan Fatigue Low 12/17/2022 Patient became violently ill with vomiting and diarrhea and the medication had to be stopped after 5 days of use Venom-Honey Bee Swelling Medium 06/07/2015 Medications levonorgestreL (Mirena) IUD 11/24/19 16 Active omega 1-mbd-vww-fish oil 100-400-1,000 mg capsule Take 1,000 mg by mouth daily Active irbesartan (AVAPRO) 300 mg tablet Take 1 tablet (300 mg total) by mouth nightly Patient needs appointment 90 tablet 05/12/19 25 Active methIMAzole (TAPAZOLE) 5 mg tabletIndicati ons:Hyperthyro idism TAKE 1 TABLET DAILY SATURDAY THROUGH SATURDAY AND TAKE 2 TABLETS ON SUNDAYS 40 tablet 3 09/02/19 25 Active carvediloL (COREG) 25 mg tablet TAKE 1 TABLET BY MOUTH TWICE A DAY WITH FOOD 180 tablet 3 11/18/19 25 Active cephalexin (KEFLEX) 250 mg capsuleIndicat ions:Urinary Tract/Genitour inary Infection Take 1 capsule (250 mg total) by mouth 3 (three) times a day 15 capsule 06/07/19 24 025 Discontin ued(Other ) predniSONE (DELTASONE) 20 mg tablet 11/04/19 24 025 Discontin ued(Other ) pantoprazole DR (PROTONIX) 40 mg EC tabletIndicati ons:Heartburn Take 1 tablet (40 mg total) by mouth daily Take as directed to help control heartburn. Collaborating physician Roman Rodriguez MD 30 tablet 08/01/19 25 025 Discontin ued(Other ) diclofenac sodium 3 % gel Apply 1 Application topically 2 (two) times a day Massage into area of pain twice daily as directed. Collaborating physician Roman Rodriguez MD 100 g 1 08/01/19 25 025 Discontin ued(Other ) Saccharomyces boulardii (FLORASTOR) 250 mg capsule Take 1 capsule (250 mg total) by mouth 2 (two) times a day 025 Discontin ued(Other ) traMADoL (ULTRAM) 50 mg tablet Take 1 tablet (50 mg total) by mouth every 8 (eight) hours as needed for pain for up to 7 days 21 tablet 08/25/19 25 025 Discontin ued(Other ) Active Problems Problem Noted Date Diagnosed Date Acute costochondritis 07/31/2024 Heartburn 07/31/2024 Morbid (severe) obesity due to excess calories 0 07/25/2023 Body mass index 40.0-44.9, [facility] 07/24 RAVIN (obstructive sleep apnea) 07/23/2023 Hyperlipidemia 07/23/2023 Hypertension 07/23/2023 Palpitation 07/23/2023 Hyperthyroidism 07/09/2019 Assessment & Plan (11/21/2023 1:37 PM CDT): Chronic, stable Update TFTs Continue tapazole. 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 Will adjust dose [...] Encounters Date Type Department Care Team Description 12/15/2024 11:00 AM CDT Therapy [facility] [place] [facility] [place] [address] Crystal Avila, JASON Cervical radiculopathy at C6 (Primary Dx) 12/15/2024 Plan of Care Documentation [facility] [place] [place] [id number] 12/10/2024 1:00 PM CDT [facility] [address] [place] [address] [address] [address] Edwin Larose MD Hyperthyroidism (Primary Dx) 11/19/2024 Orders Only [facility] Primary Care at [address] [place] [address] Phan Gilbert, DO Cervical radiculopathy at C6 (Primary Dx); Acute pain of left shoulder; Neck pain on left side; Cervical spine instability; Cervical spondylosis 11/16/2024 10:00 AM CDT Office Visit [facility] at [address] [place] [phone] Phan Gilbert, DO Cervical radiculopathy at C6 (Primary Dx) 11/16/2024 Orders Only [facility] Primary Care at [address] [place] [phone] Phan Gilbert, DO Cervical radiculopathy at C6 (Primary Dx); Acute pain of left shoulder; Neck pain on left side; Cervical spine instability; Cervical spondylosis 11/16/2024 Orders Only [facility] Primary Care at [address] [phone] Phan Gilbert, DO Cervical radiculopathy at C6 (Primary Dx); Cervical spine instability; Cervical spondylosis; Neck pain on left side; Acute pain of left shoulder 11/15/2024 3:30 PM CDT Office Visit [facility] Medical [facility] [place] [address] [place] [phone] Enedelia Amanda NP Viral URI (Primary Dx) 11/09/2024 Results Follow-Up [facility] Medical [facility] Medicine and Primary Care at [address] [phone] Michelle Iverson MA MRI Cervical Spine WO Contrast 11/06/2024 3:40 PM CDT - 11/06/2024 11:59 PM CDT Hospital Encounter [facility] [address] [place] [address] Acute pain of left shoulder; Neck pain on left side; Cervical spine instability; Cervical spondylosis Discharge Disposition: Discharge to home or self care 09/30/2024 Documentation [facility] Primary Care at [address] [place] [address] Anna Nguyen MA from Last 3 Months Surgical History Surgery [...] on file Legal Sex Female 2:34 AM WASTEWATER ENGINEER Gender Identity Female 02/23/2020 2:45 PM WASTEWATER ENGINEER Sexual Orientation Straight 02/23/2020 2: 45 PM WASTEWATER ENGINEER Obstetrics History Last Filed Vital Signs Vital Sign Reading Time Taken Comments Blood Pressure 110/70 12/10/2024 1:13 PM CDT Pulse 60 12/10/2024 1:13 PM CDT Temperature 37 C (98.6 F) 11/15/2024 3:15 PM CDT Respiratory Rate 18 12/10/2024 1:13 PM CDT Oxygen Saturation 97% 11/15/2024 3:15 PM CDT Inhaled Oxygen Concentration - - Weight 135.8 kg (299 lb 6.4 oz) 12/10/2024 1:13 PM CDT Height 170.2 cm (5' 7) 12/10/2024 1:13 PM CDT Body Mass Index 46.89 12/10/2024 1:13 PM CDT Plan of Treatment Health Maintenance Due Date Last Done Comments Breast Cancer Screening-Mammogram 1981 Cervical Cancer Screening 1981 Hepatitis C Screening 1981 Varicella Vaccines (1 of 2 - 13+ 2-dose series) 1994 Hepatitis B Screening 1999 Regular Well Visit/Exam 18-64 1999 Pneumococcal vaccine <65 (1 of 2 - PCV) 2000 HPV Vaccines (1 - 3-dose SCD M series) 2008 Influenza Vaccine (#1) 2024 Depression Screening 05/26/2025 05/26/2024, 11/21/2023, 10/15/2019, Additional history exists DTaP/Tdap/Td Vaccine (3 - Td or Tdap) 10/15/2025 10/16/2015, 11/27/1994, 01/03/1994, Additional history exists Procedures Procedure Name Priority Date/Time Associated Diagnosis Comments POCT RAPID STREP Routine 11/15/2024 3:41 PM CDT Viral URI POC INFLUENZA A/B, COVID-19 ANTIGEN Routine 11/15/2024 3:40 PM CDT Viral URI MRI CERVICAL SPINE WO CONTRAST Schedule Routine, Read Routine (OP Routine) 11/06/2024 4:28 PM CDT Acute pain of left shoulder Neck pain on left side Cervical spine instability Cervical spondylosis from Last 3 Months Results * POCT rapid strep A (11/15/2024 3:41 PM CDT) Rapid Strep A, POC Negative Negative Swab 11/15/2024 3:41 PM CDT Enedelia Amanda HYDROTHERAPIST POINT OF CARE TEST ORDERABLES Fi nal Result * POC Influenza A/B, COVID-19 antigen (11/15/2024 3:40 PM CDT) Influenza A Ag, POC Negative Negative [facility] Influenza B Ag, POC Negative Negative [facility] COVID-19 Ag POC Presumptive Negative Presumptive Negative, Invalid [facility] Nasal 11/15/2024 3:40 PM CDT Enedelia Yehen HYDROTHERAPIST POINT OF CARE TEST ORDERABLES Fi nal Result [facility] [address] [place] [address], [facility] * MRI Cervical Spine WO Contrast (11/06/2024 4:28 PM CDT) Anatomical Region Laterality Modality Spine N/A Magnetic Resonan ce 11/06/2024 4:32 PM CDT Narrative 11/06/2024 6:45 PM CDT EXAM DESCRIPTION: MRI CERVICAL SPINE WO CONTRAST REASON FOR STUDY: Neck pain 3 months ago patient woke up with neck and left arm pain / numbness and has been experiencing since. No injury. Has done injections. TECHNIQUE: Sagittal and Axial imaging includes T1, T2, STIR and gradient echo sequences. COMPARISON: Cervical plain films from 09/10/2024. FINDINGS: ALIGNMENT: Normal. VERTEBRAE: Vertebral body height well-maintained. Normal appearing marrow. DISCS: Disc heights well-maintained. HARDWARE: None in the spine. CORD: Normal in size and signal intensity. INDIVIDUAL LEVELS: C1-C2: No significant spinal stenosis. C2-C3: No significant spinal stenosis or neural foraminal stenosis. C3-C4: No significant spinal stenosis or neural foraminal stenosis. C4-C5: No significant spinal stenosis or neural foraminal stenosis. C5-C6: No significant spinal stenosis or neural foraminal stenosis. C6-C7: Mild broad-based posterior disc osteophytic complex. Slight effacement of anterior thecal sac CSF. Minimal foraminal narrowing particularly on the left. C7-T1: No significant spinal stenosis or neural foraminal stenosis. BASE OF BRAIN: No significant finding. UPPER THORACIC: Incompletely imaged. No significant spinal stenosis or foraminal stenosis. OTHER: Large right thyroid nodule better demonstrated on recent thyroid sonogram. IMPRESSION: 1. Mild cervical spondylosis at C6-7 with mild spinal stenosis and mild left foraminal narrowing. Please correlate with radiculopathy symptoms. Otherwise, no abnormality identified of the cervical spine. 2. Large right thyroid nodule, better demonstrated on recent thyroid sonogram. THIS IS AN ELECTRONICALLY VERIFIED FINAL REPORT 11/06/2024 6:45 PM - Electronically signed by Jess Holcomb M.D. LC: SAW Report ID: [id number] Reading Location: [place] [address] Procedure Note Lavonne Holcomb MD - 11/06/2024 EXAM DESCRIPTION: MRI CERVICAL SPINE WO CONTRAST REASON FOR STUDY: Neck pain 3 months ago patient woke up with neck and left arm pain / numbness andhas been experiencing since. No injury. Has done injections. TECHNIQUE: Sagittal and Axial imaging includes T1, T2, STIR and gradientecho sequences. COMPARISON: Cervical plain films from 09/10/2024. FINDINGS: ALIGNMENT: Normal. VERTEBRAE: Vertebral body height well-maintained. Normal appearingmarrow. DISCS: Disc heights well-maintained. HARDWARE: None in the spine. CORD: Normal in size and signal intensity. INDIVIDUAL LEVELS: C1-C2: No significant spinal stenosis. C2-C3: No significant spinal stenosis or neural foraminal stenosis. C3-C4: No significant spinal stenosis or neural foraminal stenosis. C4-C5: No significant spinal stenosis or neural foraminal stenosis. C5-C6: No significant spinal stenosis or neural foraminal stenosis. C6-C7: Mild broad-based posterior disc osteophytic complex. Slight effacement of anterior thecal sac CSF. Minimal foraminal narrowing particularly on the left. C7-T1: No significant spinal stenosis or neural foraminal stenosis. BASE OF BRAIN: No significant finding. UPPER THORACIC: Incompletely imaged. No significant spinal stenosis or foraminal stenosis. OTHER: Large right thyroid nodule better demonstrated on recent thyroid sonogram. IMPRESSION: 1. Mild cervical spondylosis at C6-7 with mild spinal stenosis and mildleft foraminal narrowing. Please correlate with radiculopathy symptoms. Otherwise, no abnormality identified of the cervical spine. 2. Large right thyroid nodule, better demonstrated on recent thyroid sonogram. THIS IS AN ELECTRONICALLY VERIFIED FINAL REPORT 11/06/2024 6:45 PM - Electronically signed by Jess Holcomb M.D. LC: SAW Report ID: [id number] Reading Location: [place] [address] Phan Gilbert DO IMG MRI PROCEDURES Fin al Result from Last 3 Months Insurance [facility] Care Teams Family Practice Doctor Relationship Specialty Start Date End Date Vito Kamara MD [address] [place] [address] PCP - General Internal Medicine 07/09/19 Seferino Morton MD Consulting Physician Nephrology 07/09/19
== END 2024-12-23 16:30 | disposition home or self-care (01) ==
PROVIDERS: Emergency Provider Nurse Practitioner
DX: K30 Functional dyspepsia (principal); N18.2 Chronic kidney disease, stage 2 (mild)
CPT/HCPCS: 99213; G0463